=== PATIENT | female | born 1935 ===

== ENCOUNTER 2017-11-23 19:08 | Inpatient (IN) | payer MEDICARE, MEDICAID ==
[~2017-11-23 19:08] MED LIST: Dexamethasone 12 MG in Sodium Chloride 0.9% 50 ML IV ONE
--- NOTE | 2017-11-23 20:03 | ED PDOC ---
HPI: Trauma/Fall - HPI Time Seen by Provider: 11/23/17 19:19 Chief Complaint (Nursing): Trauma History Per: Patient History/Exam Limitations: no limitations Onset/Duration Of Symptoms: Mins Associated Symptoms: Dizziness Additional History Per: Patient, Family Additional Complaint(s): Hx of Lung CA (not on chemo/radiation currently), pre-DM, thyroid disease p/w dizziness and fall. Since Monday, family states she has been weak on her L side, having difficulty walking, controlling her balance, and losing coordination. Daughter states she was also recently diagnosed with UTI. Lung CA is S4. Pt. states she hit the front and the back of her head as well as her R rib cage/RUQ. States she also has "coccyx" pain, but that is an old injury, as per pt. Denies LOC, vomiting. Pt. only states she can take APAP for pain, no opiates. - Fall Fall:Prior To Injury: Tripped, Lost Balance. denies: Passed Out NIHSS Stroke Scale - Date/Time Evaluation Performed When Was NIHSS Performed: Baseline - How Severe is the Stroke Level of Consciousness: 0=Alert LOC to Questions: 0=Both comments correct LOC to commands: 0=Obeys both correctly Best Gaze: 0=Normal Visual: 0=No visual loss Facial: 0=Normal Motor Arm - Left: 0=No drift Motor Arm - Right: 0=No drift Motor Leg - Left: 4=No movement Motor Leg - Right: 3=No effort against gravity (falls immediately) Limb Ataxia: 0=Absent Sensory: 0=Normal Best Language: 0=No aphasia Dysarthia: 0=Normal articulation Extinction & Inattention (Neglect): 0=Normal, no object Score: 7 Past Medical History Reviewed: Historical Data, Nursing Documentation, Vital Signs Vital Signs: Last Vital Signs Temp 97.2 F L 11/23/17 19:13 Pulse 97 H 11/23/17 19:13 Resp 16 11/23/17 19:13 BP 149/73 11/23/17 19:13 Pulse Ox 94 L 11/23/17 19:13 - Medical History PMH: Diabetes, Hypothyroidism, Malignancy - Surgical History Surgical History: Cholecystectomy - Family History Family History: States: Unknown Family Hx - Living Arrangements Living Arrangements: With Family - Social History Current smoker - smoking cessation education provided: No - Home Medications Home Medications: Ambulatory Orders Medication Instructions Recorded Levothyroxine [Synthroid] 125 mcg PO DAILY 11/23/17 - Allergies Allergies/Adverse Reactions: Allergies Allergy/AdvReac Type Severity Reaction Status Date / Time atropine [From Lomotil] Allergy SHORTNESS Verified 11/23/17 19:34 OF BREATH belladonna alkaloids Allergy URTICARIA Verified 11/23/17 19:34 cefadroxil [From Duricef] Allergy SHORTNESS Verified 11/23/17 19:34 OF BREATH diphenoxylate [From Lomotil] Allergy SHORTNESS Verified 11/23/17 19:34 OF BREATH erythromycin base Allergy DIARRHEA Verified 11/23/17 19:34 [From Erythrocin] hyoscyamine [From ] Allergy SHORTNESS Verified 11/23/17 19:34 OF BREATH iodine Allergy RASH Verified 11/23/17 19:34 Opioids - Morphine Analogues Allergy SHORTNESS Verified 11/23/17 19:45 OF BREATH Penicillins Allergy SHORTNESS Verified 11/23/17 19:34 OF BREATH phenobarbital [From ] Allergy SHORTNESS Verified 11/23/17 19:34 OF BREATH scopolamine [From ] Allergy SHORTNESS Verified 11/23/17 19:34 OF BREATH tetracycline Allergy DIARRHEA Verified 11/23/17 19:34 Review of Systems ROS Statement: Except As Marked, All Systems Reviewed And Found Negative Gastrointestinal: Positive for: Abdominal Pain Neurological: Positive for: Weakness, Incoordination, Headache, Dizziness. Negative for: Confusion, Seizures Physical Exam - Reviewed Nursing Documentation Reviewed: Yes Vital Signs Reviewed: Yes - Physical Exam Appears: Positive for: Well, Non-toxic, No Acute Distress Head Exam: Positive for: NORMOCEPHALIC. Negative for: ATRAUMATIC (small hematoma to forehead) Skin: Positive for: Normal Color, Warm, DRY Eye Exam: Positive for: EOMI, Normal appearance, PERRL ENT: Positive for: Normal ENT Inspection Neck: Positive for: Normal, Painless ROM Cardiovascular/Chest: Positive for: Regular Rate, Rhythm Respiratory: Positive for: CNT, Normal Breath Sounds Gastrointestinal/Abdominal: Positive for: Bowel Sounds, Soft, Tenderness (mild RUQ tenderness). Negative for: Organomegaly, Mass, Distended, Guarding, Rebound , Asicites Back: Positive for: Muscle Spasm (lumbar/sacral TTP of mildline vertebral bodies , no stepoff) Rectal: Positive for: Deferred Extremity: Positive for: Pedal Edema (2+ swelling of bilateral LE w/ pitting edema w/ slight erythema). Negative for: Calf Tenderness, Deformity Neurologic/Psych: Positive for: Alert, box truck washer II-XII, Oriented. Negative for: Motor/Sensory Deficits (global weakness, R>L, cannot lift R leg off bed, able to lift L leg off bed slightly. RUE and LUE strength 5/5.), Cerebellar Tests, Aphasia, Facial Droop - Laboratory Results Result Diagrams: 11/23/17 22:10 11/23/17 22:10 - ECG O2 Sat by Pulse Oximetry: 94 Medical Decision Making Medical Decision Making: A/P: Hx of lung CA, thyroid disease, DM p/w dizziness and fall -mechanical v. pre-sycnopal event v. mets to brain v. UTI v. electrolyte disorder -will check labs, CTs, xray -APAP for pain (pt. refusing opiates) CT Brain:FINDINGS: Brain: There is prominence of sulci gyri and ventricles. There is no midline shift. There is a heterogeneous right posterior parietal/occipital mass with hemorrhage. There is surrounding vasogenic edema. Lesion measures approximately 4 x 3.2 x 4.2 cm. There is mass effect on the posterior horn of the right lateral ventricle with effacement. Edema effaces the adjacent sulci and gyri. There is a calcified left frontal extra-axial mass, possible meningioma. Jama- white differentiation is visualized. Ventricles: See above Bones: Cranial vault is intact. Soft tissues: unremarkable Sinuses: There is mucoperiosteal thickening greatest in the left maxillary sinus. Mastoid air cells: Ears and mastoids: Middle ears and mastoids are unremarkable. [facility] | Final Radiology Report CONFIDENTIALITY STATEMENT This report is intended only for use by the referring physician, and only in accordance with law. If you received this in error, call [phone]. Page 2 of 2 Orbits: There are no acute orbital abnormalities. IMPRESSION: Hemorrhagic posterior right parietal/occipital mass and surrounding vasogenic edema consistent with neoplasm; probable small incidental meningioma CT Abd/Pelv/Chest FINDINGS: Limitation: Lack of intravenous contrast limits evaluation of the chest Lungs and pleural spaces: Trachea and main bronchi are patent. There is encasement of right middle and lower lobe bronchi. There is mild narrowing of the right lower lobe bronchus. There is masslike pleural thickening in the posterior right upper hemithorax extending from the apex to the lower hemithorax. There is a smaller anterior pleural-based mass. There is a moderately large partially loculated right pleural effusion. There is a large subpulmonic component to the effusion. There is right upper lobe volume loss. There is partial right middle lobe atelectasis. There is compressive atelectasis with partial consolidation of the right lower lobe. There is prominence of interstitial markings in the left lung. There is no focal consolidation on the left. There is minimal atelectasis/scarring at the left base. There is no left effusion. Heart and vasculature: Heart size is normal. There is no pericardial effusion. There are coronary artery calcifications. There are calcifications in the aortic wall. Aorta and main pulmonary artery are normal in caliber. Thyroid: Thyroid is not optimally demonstrated. Bones/joints: There is a fracture of the right second rib which appears old. There is an ageindeterminate fracture of the posterior right seventh rib. No acute displaced fractures are seen on the [facility] | Final Radiology Report Page 2 of 3 left. There is exaggeration of the thoracic kyphosis. There are degenerative changes throughout the thoracic spine. Soft tissues: unremarkable Mediastinum: There is mediastinal and right hilar adenopathy. There is no definite left hilar adenopathy. Esophagus is unremarkable. Upper abdomen: Refer to following report for abdominal findings IMPRESSION: Large pleural-based mass extending from the right apex posteriorly almost to the lung base; right pleural effusion with large subpulmonic component; atelectatic changes in the right lung greatest in the right lower lobe; mediastinal and right hilar adenopathy not optimally evaluated; age indeterminate posterior right seventh rib fracture An acute nondisplaced rib fracture may be radiographically occult EXAM: CT Abdomen and Pelvis Without Intravenous Contrast EXAM DATE/TIME: 11/23/2017 9:01 PM CLINICAL HISTORY: 82 years old, female; Injury or trauma; Fall; Initial encounter; Blunt; Ruq; Blunt trauma (contusions or hematomas); Prior surgery; Surgery date: 6+ months; Surgery type: Cholecystectomy; Patient HX: HX. stage IV lung cancer. ; Additional info: S/P fall, ruq pain, lower back pain , HX of lung ca TECHNIQUE: Axial computed tomography images of the abdomen and pelvis without intravenous contrast. All CT scans at this facility use one or more dose reduction techniques, viz.: automated exposure control; ma/kV adjustment per patient size (including targeted exams where dose is matched to indication; i.e. head); or iterative reconstruction technique. Coronal and sagittal reformatted images were created and reviewed. COMPARISON: There are no prior studies for comparison. FINDINGS: Limitations: Lack of intravenous contrast limits evaluation of solid viscera Lower thorax: Refer to prior report for chest findings ABDOMEN: Liver: unremarkable Gallbladder and bile ducts: Gallbladder is nonvisualized.Common duct is unremarkable. Pancreas: Pancreas is mildly atrophic. Spleen: Spleen is unremarkable. There is an accessory spleen in the left upper quadrant. Adrenals: There is nodular thickening of the adrenals. [facility] | Final Radiology Report CONFIDENTIALITY STATEMENT This report is intended only for use by the referring physician, and only in accordance with law. If you received this in error, call [phone]. Page 3 of 3 Kidneys and ureters: unremarkable Stomach and bowel: Stomach is almost completely empty. Rotation is normal. Small bowel is mildly distended with air and fluid. There is no obstruction. Ileocecal region is unremarkable. Appendix and terminal ileum are unremarkable. There is moderate stool in the colon. There is sigmoid diverticulosis. The Appendix: See stomach and bowel PELVIS: Bladder: unremarkable Reproductive: Uterus and adnexal structures are unremarkable. ABDOMEN and PELVIS: Intraperitoneal space: There is no free air or free fluid. Bones/joints: Bony structures are osteopenic.There are degenerative changes in the osseus structures. There is sclerosis at the sacroiliac joints. Soft tissues: There is a very small fat containing umbilical hernia. Vasculature: There are vascular calcifications. Lymph nodes: There is no pathologic adenopathy. IMPRESSION: Limited evaluation of solid viscera due to lack of contrast, no acute solid visceral abnormality; prior cholecystectomy; possible constipation, diverticulosis without CT findings of diverticulitis CT Cervical Spine FINDINGS: Vertebrae: There is maintenance of the cervical lordosis. There is no prevertebral soft tissue swelling. Bony structures are diffusely osteopenic. There are no fractures. There is multilevel degenerative change. There is narrowing of predental space. There is narrowing of all disc spaces greatest C5/C6.Facet joints align anatomically. There is degenerative facet disease at all levels. There is minimal anterolisthesis seen 3 on C4. There are no fractures. Discs/spinal canal/neural foramina: See above. Soft tissues: See above. Thyroid: Thyroid is not optimally demonstrated. Lung apices: There is masslike pleural thickening at the right apex. There is adjacent compressive atelectasis. IMPRESSION: Osteopenia and degenerative change, no fracture Explained results to family and patient. Spoke with Dr. Parekh who recommends IV Decadron, IV mannitol, and head of the bed raised. Will place in ICU. Case discussed with hospitalist DR. Mukherjee and case accepted by Dr. Snyder. 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
[2017-11-23] MEDS ORDERED: Iohexol 300 100 ML IJ ONE (20:59)
[2017-11-23] MEDS ORDERED: Sodium Chloride 0.9% 0 ML IV ONE (20:59)
--- NOTE | 2017-11-23 22:00 | CT ---
EXAM: CT Head Without Intravenous Contrast EXAM DATE/TIME: 11/23/2017 7:41 PM CLINICAL HISTORY: 82 years old, female; Injury or trauma; Fall; Initial encounter; Concussion / head injury; Without loss of consciousness; Injury date: 11-23-2017; Injury details: Patient fell in bathroom, . weakness on left side; Patient HX: HX of lung ca. ; Additional info: S/P fall TECHNIQUE: Axial computed tomography images of the head/brain without intravenous contrast. All CT scans at this facility use one or more dose reduction techniques, viz.: automated exposure control; ma/kV adjustment per patient size (including targeted exams where dose is matched to indication; i.e. head); or iterative reconstruction technique. Coronal and sagittal reformatted images were created and reviewed. COMPARISON: There are no prior studies for comparison. FINDINGS: Brain: There is prominence of sulci gyri and ventricles. There is no midline shift. There is a heterogeneous right posterior parietal/occipital mass with hemorrhage. There is surrounding vasogenic edema. Lesion measures approximately 4 x 3.2 x 4.2 cm. There is mass effect on the posterior horn of the right lateral ventricle with effacement. Edema effaces the adjacent sulci and gyri. There is a calcified left frontal extra-axial mass, possible meningioma. Jama-white differentiation is visualized. Ventricles: See above Bones: Cranial vault is intact. Soft tissues: unremarkable Sinuses: There is mucoperiosteal thickening greatest in the left maxillary sinus. Mastoid air cells: Ears and mastoids: Middle ears and mastoids are unremarkable. Orbits: There are no acute orbital abnormalities. IMPRESSION: Hemorrhagic posterior right parietal/occipital mass and surrounding vasogenic edema consistent with neoplasm; probable small incidental meningioma
--- NOTE | 2017-11-23 22:05 | CT ---
EXAM: CT Cervical Spine Without Intravenous Contrast EXAM DATE/TIME: 11/23/2017 7:41 PM CLINICAL HISTORY: 82 years old, female; Injury or trauma; Fall; Initial encounter; Blunt trauma; Injury details: HX. Of stage IV lung cancer. ; Additional info: S/P fall TECHNIQUE: Axial computed tomography images of the cervical spine without intravenous contrast. All CT scans at this facility use one or more dose reduction techniques, viz.: automated exposure control; ma/kV adjustment per patient size (including targeted exams where dose is matched to indication; i.e. head); or iterative reconstruction technique. Coronal and sagittal reformatted images were created and reviewed. COMPARISON: There are no prior studies for comparison. FINDINGS: Vertebrae: There is maintenance of the cervical lordosis. There is no prevertebral soft tissue swelling. Bony structures are diffusely osteopenic. There are no fractures. There is multilevel degenerative change. There is narrowing of predental space. There is narrowing of all disc spaces greatest C5/C6.Facet joints align anatomically. There is degenerative facet disease at all levels. There is minimal anterolisthesis seen 3 on C4. There are no fractures. Discs/spinal canal/neural foramina: See above. Soft tissues: See above. Thyroid: Thyroid is not optimally demonstrated. Lung apices: There is masslike pleural thickening at the right apex. There is adjacent compressive atelectasis. IMPRESSION: Osteopenia and degenerative change, no fracture
[2017-11-23 22:15] LABS: BASO % 0.4 % (0.0-2.0); EOS # 0.1 K/uL (0.0-0.7); EOS % 2.5 % (0.0-4.0); HEMOGLOBIN 11.7 g/dL (12.0-16.0); LYMPH % 17.8 % (20.0-40.0); MEAN CELL VOLUME 93.5 fl (81.0-99.0); MEAN CORPUSCULAR HEMOGLOBIN 30.8 pg (27.0-31.0); MEAN CORPUSCULAR HGB CONC 32.9 g/dL (33.0-37.0); MEAN PLATELET VOLUME 9.2 fl (7.2-11.7); MONO # 0.6 K/uL (0.0-0.8); NEUT # 3.9 K/uL (1.8-7.0); NEUT % 68.3 % (50.0-75.0); NRBC % 0.1 % (0.0-0.0); RBC 3.79 Mil/uL (3.80-5.20); RED CELL DISTRIBUTION WIDTH 15.8 % (11.5-14.5); WHITE BLOOD COUNT 5.7 K/uL (4.8-10.8)
--- NOTE | 2017-11-23 22:26 | CT ---
EXAM: CT Chest Without Intravenous Contrast CLINICAL HISTORY: 82 years old, female; Injury or trauma; Fall; Initial encounter; Blunt; Ruq; Blunt trauma (contusions or hematomas); Prior surgery; Surgery date: 6+ months; Surgery type: Cholecystectomy; Patient HX: HX. stage IV lung cancer. ; Additional info: S/P fall, ruq pain, lower back pain, HX of lung ca TECHNIQUE: Axial computed tomography images of the chest without intravenous contrast. All CT scans at this facility use one or more dose reduction techniques, viz.: automated exposure control; ma/kV adjustment per patient size (including targeted exams where dose is matched to indication; i.e. head); or iterative reconstruction technique. Coronal and sagittal reformatted images were created and reviewed. COMPARISON: There are no prior studies for comparison. FINDINGS: Limitation: Lack of intravenous contrast limits evaluation of the chest Lungs and pleural spaces: Trachea and main bronchi are patent. There is encasement of right middle and lower lobe bronchi. There is mild narrowing of the right lower lobe bronchus. There is masslike pleural thickening in the posterior right upper hemithorax extending from the apex to the lower hemithorax. There is a smaller anterior pleural-based mass. There is a moderately large partially loculated right pleural effusion. There is a large subpulmonic component to the effusion. There is right upper lobe volume loss. There is partial right middle lobe atelectasis. There is compressive atelectasis with partial consolidation of the right lower lobe. There is prominence of interstitial markings in the left lung. There is no focal consolidation on the left. There is minimal atelectasis/scarring at the left base. There is no left effusion. Heart and vasculature: Heart size is normal. There is no pericardial effusion. There are coronary artery calcifications. There are calcifications in the aortic wall. Aorta and main pulmonary artery are normal in caliber. Thyroid: Thyroid is not optimally demonstrated. Bones/joints: There is a fracture of the right second rib which appears old. There is an age-indeterminate fracture of the posterior right seventh rib. No acute displaced fractures are seen on the left. There is exaggeration of the thoracic kyphosis. There are degenerative changes throughout the thoracic spine. Soft tissues: unremarkable Mediastinum: There is mediastinal and right hilar adenopathy. There is no definite left hilar adenopathy. Esophagus is unremarkable. Upper abdomen: Refer to following report for abdominal findings IMPRESSION: Large pleural-based mass extending from the right apex posteriorly almost to the lung base; right pleural effusion with large subpulmonic component; atelectatic changes in the right lung greatest in the right lower lobe; mediastinal and right hilar adenopathy not optimally evaluated; age indeterminate posterior right seventh rib fracture An acute nondisplaced rib fracture may be radiographically occult EXAM: CT Abdomen and Pelvis Without Intravenous Contrast EXAM DATE/TIME: 11/23/2017 9:01 PM CLINICAL HISTORY: 82 years old, female; Injury or trauma; Fall; Initial encounter; Blunt; Ruq; Blunt trauma (contusions or hematomas); Prior surgery; Surgery date: 6+ months; Surgery type: Cholecystectomy; Patient HX: HX. stage IV lung cancer. ; Additional info: S/P fall, ruq pain, lower back pain, HX of lung ca TECHNIQUE: Axial computed tomography images of the abdomen and pelvis without intravenous contrast. All CT scans at this facility use one or more dose reduction techniques, viz.: automated exposure control; ma/kV adjustment per patient size (including targeted exams where dose is matched to indication; i.e. head); or iterative reconstruction technique. Coronal and sagittal reformatted images were created and reviewed. COMPARISON: There are no prior studies for comparison. FINDINGS: Limitations: Lack of intravenous contrast limits evaluation of solid viscera Lower thorax: Refer to prior report for chest findings ABDOMEN: Liver: unremarkable Gallbladder and bile ducts: Gallbladder is nonvisualized.Common duct is unremarkable. Pancreas: Pancreas is mildly atrophic. Spleen: Spleen is unremarkable. There is an accessory spleen in the left upper quadrant. Adrenals: There is nodular thickening of the adrenals. Kidneys and ureters: unremarkable Stomach and bowel: Stomach is almost completely empty. Rotation is normal. Small bowel is mildly distended with air and fluid. There is no obstruction. Ileocecal region is unremarkable. Appendix and terminal ileum are unremarkable. There is moderate stool in the colon. There is sigmoid diverticulosis. The Appendix: See stomach and bowel PELVIS: Bladder: unremarkable Reproductive: Uterus and adnexal structures are unremarkable. ABDOMEN and PELVIS: Intraperitoneal space: There is no free air or free fluid. Bones/joints: Bony structures are osteopenic.There are degenerative changes in the osseus structures. There is sclerosis at the sacroiliac joints. Soft tissues: There is a very small fat containing umbilical hernia. Vasculature: There are vascular calcifications. Lymph nodes: There is no pathologic adenopathy. IMPRESSION: Limited evaluation of solid viscera due to lack of contrast, no acute solid visceral abnormality; prior cholecystectomy; possible constipation, diverticulosis without CT findings of diverticulitis Additional findings as described above.
[2017-11-23 22:41] LABS: BLOOD UREA NITROGEN 12 mg/dl (7-17); GFR AFRICAN-AMERICAN > 60; GFR NON-AFRICAN AMERICAN > 60
[2017-11-23 22:42] LABS: B-TYPE NATRIURETIC PEPTIDE 281 pg/ml (0-900); CALCIUM 9.8 mg/dL (8.4-10.2)
[2017-11-23] MEDS ORDERED: Mannitol 12.5 gm/50 ml Inj IV ONE (23:15)
--- NOTE | 2017-11-23 23:17 | CP.PCM.CON ---
History of Present Illness - History of Present Illness History of Present Illness: Attending: Pedro Snyder MD PCP: Dedrick Gillis MD Reason for Consult: Critical care management: Chief Complaint: Fall/Head trauma HPI: The hx is obtained from the family and after review of the medical records as the patient is very lethargic. She is an 82 years old female with hx of Diabetes, Hypothyroidism and Stage IV lung cancer who has been with unsteady gait at her home, worse since 5 days ago. She was brought to the ED because she fell in the Bathroom hitting the front and back of her head as well as right rib cage. No LOC of consciousness as per family. No external bleeding from the head. She complained of dizziness and headache. No vomits. In the ED The NIHSS was 7 PMH: Hypothyroidism;Pre-diabetes; multiple falls;Stage IV lung cancer( Patient refused Chemo accepting only a Short course of Radiotherapy) PSH:: Cholecystectomy SH: No illegal Drug Use, No Smoking; No alcohol FH:No Known family hx Allergies: Atropin; Belladonna alkoloids, Cefadroxil, Diphenoxylate, Erythrosin , Donnatol, Iodine, PCN, Scopolamine; Tetracyclin Medication: Reviewed Review of Systems - Review of Systems Systems not reviewed;Unavailable: Altered Mental Status Review of Systems: Review of systems limited as patient is severely lethargic Past Patient History - Past Medical History & Family History Past Medical History?: Yes - Past Social History Smoking Status: Unknown If Ever Smoked Chewing Tobacco Use: No Cigar Use: No Alcohol: None Drugs: Denies, Inhalants Home Situation {Lives}: With Family - CARDIAC Hx Cardiac Disorders: No - PULMONARY Hx Respiratory Disorders: Yes Hx Lung Cancer: Yes (stage 4) - NEUROLOGICAL Hx Neurological Disorder: Yes Hx Dizziness: Yes - HEENT Hx HEENT Problems: No - RENAL Hx Chronic Kidney Disease: No - ENDOCRINE/METABOLIC Hx Endocrine Disorders: Yes (pre-diabetes) Hx Hypothyroidism: Yes - HEMATOLOGICAL/ONCOLOGICAL Hx Blood Disorders: No - INTEGUMENTARY Hx Dermatological Problems: No - MUSCULOSKELETAL/RHEUMATOLOGICAL Hx Musculoskeletal Disorders: Yes Hx Falls: Yes - GASTROINTESTINAL Hx Gastrointestinal Disorders: No - GENITOURINARY/GYNECOLOGICAL Hx Genitourinary Disorders: No - PSYCHIATRIC Hx Psychophysiologic Disorder: No Hx Substance Use: No - SURGICAL HISTORY Hx Cholecystectomy: Yes - ANESTHESIA Hx Anesthesia: Yes Hx Anesthesia Reactions: No Meds Allergies/Adverse Reactions: Allergies Allergy/AdvReac Type Severity Reaction Status Date / Time atropine [From Lomotil] Allergy SHORTNESS Verified 11/23/17 19:34 OF BREATH belladonna alkaloids Allergy URTICARIA Verified 11/23/17 19:34 cefadroxil [From Duricef] Allergy SHORTNESS Verified 11/23/17 19:34 OF BREATH diphenoxylate [From Lomotil] Allergy SHORTNESS Verified 11/23/17 19:34 OF BREATH erythromycin base Allergy DIARRHEA Verified 11/23/17 19:34 [From Erythrocin] hyoscyamine [From ] Allergy SHORTNESS Verified 11/23/17 19:34 OF BREATH iodine Allergy RASH Verified 11/23/17 19:34 Opioids - Morphine Analogues Allergy SHORTNESS Verified 11/23/17 19:45 OF BREATH Penicillins Allergy SHORTNESS Verified 11/23/17 19:34 OF BREATH phenobarbital [From ] Allergy SHORTNESS Verified 11/23/17 19:34 OF BREATH scopolamine [From ] Allergy SHORTNESS Verified 11/23/17 19:34 OF BREATH tetracycline Allergy DIARRHEA Verified 11/23/17 19:34 - Medications Medications: Current Medications Mannitol (Mannitol) 20 gm IV ONCE ONE Stop: 11/23/17 23:16 Physical Exam - Constitutional Appears: No Acute Distress - Head Exam Head Exam: ATRAUMATIC, NORMAL INSPECTION, NORMOCEPHALIC - Eye Exam Additional comments: Eyes closed, resisting attempt to open them. pupils 2mm reacting sluggish. Right pupil appear smaller - ENT Exam ENT Exam: Mucous Membranes Moist, Normal External Ear Exam - Neck Exam Neck exam: Positive for: Full Rom, Normal Inspection. Negative for: Lymphadenopathy, Tenderness - Respiratory Exam Respiratory Exam: absent: Rales, Rhonchi, Wheezes Additional comments: Decreased breath sounds globally - Cardiovascular Exam Cardiovascular Exam: REGULAR RHYTHM, RRR, +S1, +S2. absent: Gallop - GI/Abdominal Exam GI & Abdominal Exam: Normal Bowel Sounds, Soft. absent: Mass, Organomegaly - Rectal Exam Rectal Exam: Deferred - Extremities Exam Additional comments: bilateral leg edema Left> right 3+ and 2+ - Back Exam Back exam: NORMAL INSPECTION. absent: CVA tenderness (L), CVA tenderness (R) - Neurological Exam Additional comments: Patient very lethargic, resisting to opening eyes, at present non verbal , motor tone conserved, Motor strength 3/5 in both upper extremities, not following commands, not moving the lower extremities, Difficulty in observing for facial droop. - Psychiatric Exam Psychiatric exam: Flat Affect - Skin Skin Exam: Intact, Normal Color, Warm Results - Vital Signs Recent Vital Signs: Last Vital Signs Temp 97.2 F L 11/23/17 19:13 Pulse 97 H 11/23/17 19:13 Resp 16 11/23/17 19:13 BP 149/73 11/23/17 19:13 Pulse Ox 94 L 11/23/17 20:08 - Labs Result Diagrams: 11/24/17 04:50 11/24/17 04:50 Labs: Laboratory Results - last 24 hr 11/23/17 11/23/17 22:10 22:10 WBC 5.7 RBC 3.79 L Hgb 11.7 L Hct 35.5 MCV 93.5 MCH 30.8 MCHC 32.9 L RDW 15.8 H Plt Count 218 MPV 9.2 Neut % (Auto) 68.3 Lymph % (Auto) 17.8 L Pratt % (Auto) 11.0 H Eos % (Auto) 2.5 Baso % (Auto) 0.4 Neut # 3.9 Lymph # 1.0 Pratt # 0.6 Eos # 0.1 Baso # 0.0 Sodium 134 Potassium 4.1 Chloride 103 Carbon Dioxide 26 Anion Gap 9 L BUN 12 Creatinine 0.8 Est GFR ( Amer) > 60 Est GFR (Non-Af Amer) > 60 Random Glucose 163 H Calcium 9.8 Total Creatine Kinase 76 Troponin I < 0.0120 NT-Pro-B Natriuret Pep 281 - EKG Data EKG comments: Sinus Rhythm 84/min - Imaging and Cardiology CT scan - chest Status: Image reviewed by me Additional comment: EXAM: CT Chest Without Intravenous Contrast FINDINGS: Limitation: Lack of intravenous contrast limits evaluation of the chest Lungs and pleural spaces: Trachea and main bronchi are patent. There is encasement of right middle and lower lobe bronchi. There is mild narrowing of the right lower lobe bronchus. There is masslike pleural thickening in the posterior right upper hemithorax extending from the apex to the lower hemithorax. There is a smaller anterior pleural-based mass. There is a moderately large partially loculated right pleural effusion. There is a large subpulmonic component to the effusion. There is right upper lobe volume loss. There is partial right middle lobe atelectasis. There is compressive atelectasis with partial consolidation of the right lower lobe. There is prominence of interstitial markings in the left lung. There is no focal consolidation on the left. There is minimal atelectasis/scarring at the left base. There is no left effusion. Heart and vasculature: Heart size is normal. There is no pericardial effusion. There are coronary artery calcifications. There are calcifications in the aortic wall. Aorta and main pulmonary artery are normal in caliber. Thyroid: Thyroid is not optimally demonstrated. Bones/joints: There is a fracture of the right second rib which appears old. There is an ageindeterminate fracture of the posterior right seventh rib. No acute displaced fractures are seen on the left. There is exaggeration of the thoracic kyphosis. There are degenerative changes throughout the thoracic spine. Soft tissues: unremarkable Mediastinum: There is mediastinal and right hilar adenopathy. There is no definite left hilar adenopathy. Esophagus is unremarkable. Upper abdomen: Refer to following report for abdominal finding IMPRESSION: Large pleural-based mass extending from the right apex posteriorly almost to the lung base; right pleural effusion with large subpulmonic component; atelectatic changes in the right lung greatest in the right lower lobe; mediastinal and right hilar adenopathy not optimally evaluated; age indeterminate posterior right seventh rib fracture An acute nondisplaced rib fracture may be radiographically occult CT scan - abdomen Status: Image reviewed by me Additional comment: EXAM: CT Abdomen and Pelvis Without Intravenous Contrast EXAM DATE/TIME: 11/23/2017 9:01 PM FINDINGS: Limitations: Lack of intravenous contrast limits evaluation of solid viscera Lower thorax: Refer to prior report for chest findings ABDOMEN: Liver: unremarkable Gallbladder and bile ducts: Gallbladder is nonvisualized.Common duct is unremarkable. Pancreas: Pancreas is mildly atrophic. Spleen: Spleen is unremarkable. There is an accessory spleen in the left upper quadrant. Adrenals: There is nodular thickening of the adrenals. Kidneys and ureters: unremarkable Stomach and bowel: Stomach is almost completely empty. Rotation is normal. Small bowel is mildly distended with air and fluid. There is no obstruction. Ileocecal region is unremarkable. Appendix and terminal ileum are unremarkable. There is moderate stool in the colon. There is sigmoid diverticulosis. The Appendix: See stomach and bowel PELVIS: Bladder: unremarkable Reproductive: Uterus and adnexal structures are unremarkable. ABDOMEN and PELVIS: Intraperitoneal space: There is no free air or free fluid. Bones/joints: Bony structures are osteopenic.There are degenerative changes in the osseus structures. There is sclerosis at the sacroiliac joints. Soft tissues: There is a very small fat containing umbilical hernia. Vasculature: There are vascular calcifications. Lymph nodes: There is no pathologic adenopathy IMPRESSION: Limited evaluation of solid viscera due to lack of contrast, no acute solid visceral abnormality; prior cholecystectomy; possible constipation, diverticulosis without CT findings of diverticulitis CT Cervical Spine Status: Image reviewed by me Additional comment: EXAM: CT Cervical Spine Without Intravenous Contrast EXAM DATE/TIME: 11/23/2017 7:41 PM FINDINGS: Vertebrae: There is maintenance of the cervical lordosis. There is no prevertebral soft tissue swelling. Bony structures are diffusely osteopenic. There are no fractures. There is multilevel degenerative change. There is narrowing of predental space. There is narrowing of all disc spaces greatest C5/C6.Facet joints align anatomically. There is degenerative facet disease at all levels. There is minimal anterolisthesis seen 3 on C4. There are no fractures. Discs/spinal canal/neural foramina: See above. Soft tissues: See above. Thyroid: Thyroid is not optimally demonstrated. Lung apices: There is masslike pleural thickening at the right apex. There is adjacent compressive atelectasis. IMPRESSION: Osteopenia and degenerative change, no fracture CT scan - head Status: Image reviewed by me Additional comment: EXAM: CT Head Without Intravenous Contrast EXAM DATE/TIME: 11/23/2017 7:41 PM FINDINGS: Brain: There is prominence of sulci gyri and ventricles. There is no midline shift. There is a heterogeneous right posterior parietal/occipital mass with hemorrhage. There is surrounding vasogenic edema. Lesion measures approximately 4 x 3.2 x 4.2 cm. There is mass effect on the posterior horn of the right lateral ventricle with effacement. Edema effaces the adjacent sulci and gyri. There is a calcified left frontal extra-axial mass, possible meningioma. Jama- white differentiation is visualized. Ventricles: See above Bones: Cranial vault is intact. Soft tissues: unremarkable Sinuses: There is mucoperiosteal thickening greatest in the left maxillary sinus. Mastoid air cells: Ears and mastoids: Middle ears and mastoids are unremarkable. Orbits: There are no acute orbital abnormalities. IMPRESSION: Hemorrhagic posterior right parietal/occipital mass and surrounding vasogenic edema consistent with neoplasm; probable small incidental meningioma Chest x-ray Status: Image reviewed by me Additional comment: Opacity occupying the right lung and part of the left lung Assessment & Plan - Assessment and Plan (Free Text) Assessment: #. Hemorrhagic Brain Metastasis #. Stage IV Lung cancer #. Hypothyroidism #. Diabetic Mellitus Plan: 82 years old female with hx of Diabetes, Hypothyroidism and Stage IV lung cancer who has been with unsteady gait at her home, worse since 5 days ago. She was brought to the ED because she fell in the Bathroom hitting the front and back of her head as well as right rib cage. No LOC of consciousness as per family. No external bleeding from the head. She complained of dizziness and headache. No vomits. In the ED The NIHSS was 7 #. Hemorrhagic Brain Metastasis - Consult Neuro surgeon Dr Parekh - Consult Neurology Dr Bellamy - Neuro checks - NPO - Swallow Eval - Decadron - Mannitol - MRI of head #. Stage IV Lung cancer - No Chemo/ No Radiation - Conservative/Palliative management - Pain management #. Hypothyroidism - Synthroid #. Diabetic Mellitus - IV Fluid NS 75/hr - Regular Insulin sliding scale according to Accucheck - HbA1c #. Stress ulcer prophylaxis with Pantoprazole #. DVT prophylaxis with SCD #. Code Status: Full - Date & Time Date: 11/23/17 Time: 23:17
[2017-11-23 23:26] LABS: PARTIAL THROMBOPLASTIN TIME 30.2 Seconds (25.6-37.1); PROTHROMBIN TIME 11.4 Seconds (9.8-13.1)
[2017-11-23 23:46] LABS: SQUAMOUS EPITHIAL 2 /hpf (0-5); URINE BILIRUBIN NEGATIVE (NEGATIVE); URINE BLOOD NEGATIVE (NEGATIVE); URINE CLARITY SLIGHTY-CLOUDY (Clear); URINE COLOR YELLOW (YELLOW); URINE GLUCOSE (UA) NEG (Normal); URINE LEUKOCYTE ESTERASE SMALL Leu/uL (Negative); URINE NITRATE NEGATIVE (NEGATIVE); URINE PROTEIN NEGATIVE (NEGATIVE); URINE UROBILINOGEN 0.2-1.0 mg/dL (0.2-1.0)
[2017-11-24] MEDS: Sodium Chloride 0.9% 1,000 ML IV SCH ×2 (02:04→16:24)
[2017-11-24] MEDS ORDERED: Mannitol 12.5 gm/50 ml Inj IV SCH (04:00)
[2017-11-24] MEDS ORDERED: Dexamethasone 6 MG in Sodium Chloride 0.9% 50 ML IVPB SCH (04:00)
[2017-11-24 05:51] LABS: BASO % 0.7 % (0.0-2.0); EOS % 0.3 % (0.0-4.0); HEMOGLOBIN 11.3 g/dL (12.0-16.0); LYMPH # 0.4 K/uL (1.0-4.3); LYMPH % 9.7 % (20.0-40.0); MEAN CELL VOLUME 94.2 fl (81.0-99.0); MEAN CORPUSCULAR HEMOGLOBIN 31.1 pg (27.0-31.0); MEAN PLATELET VOLUME 8.9 fl (7.2-11.7); MONO # 0.1 K/uL (0.0-0.8); MONO % 2.8 % (0.0-10.0); NEUT # 3.9 K/uL (1.8-7.0); NEUT % 86.5 % (50.0-75.0); NRBC % 0.1 % (0.0-0.0); PLATELET COUNT 203 K/uL (130-400); RBC 3.63 Mil/uL (3.80-5.20); RED CELL DISTRIBUTION WIDTH 15.7 % (11.5-14.5); WHITE BLOOD COUNT 4.5 K/uL (4.8-10.8)
[2017-11-24 06:19] LABS: ALBUMIN 3.4 g/dL (3.5-5.0); ALT/SGPT 30 U/L (9-52); AST/SGOT 28 U/L (14-36); BLOOD UREA NITROGEN 10 mg/dl (7-17); CALCIUM 9.5 mg/dL (8.4-10.2); GFR AFRICAN-AMERICAN > 60; GFR NON-AFRICAN AMERICAN > 60
[2017-11-24 07:54] LABS: EOSINOPHIL 1 % (0-7); LYMPHOCYTE 10 % (20-50); NEUTROPHIL 85 % (42-75); TOTAL CELLS COUNTED 100
[2017-11-24 07:55] LABS: ANISOCYTOSIS SLIGHT; BASOPHIL 1 % (0-2); MONOCYTE 3 % (0-10); PLATELET ESTIMATE NORMAL (NORMAL)
--- NOTE | 2017-11-24 08:23 | CP.PCM.HP ---
<Paul Banerjee - Last Filed: 11/24/17 10:36> History of Present Illness - History of Present Illness History of Present Illness: 82 yo ,f, PMhx/o DM, Hypothyroidism, stage IV lung cancer is brought in to ED with family who report that they noticed since Monday ( 6 days ago) that she has been with gait imbalance, weak from left side, noticed when using her walker and yesterday patient fell in the Bathroom hitting the front and back of her head as well as right rib cage. She reports some dizziness before the event. She denies seizure activity, vomiting, blurry vision, confusion . Patient 's granddaughter does not remember her primary Dr and state that she had some short course of Radiotherapy and refused chemio. At this moment patient has been using only homeopathic treatment Patient seen and examined bedside in ICU with Dr Snyder and granddaughter present. Patient awake,alert, using O2 by NC. Reports some left leg weakness and tingling b/l hands. she denies headache, vomiting, blurry vision, chest pain. Patient's granddaughter stated that patient has not living will and she lives with 2 sister, one of them is in denial for the condition. We had conversation about palliative care, hospice care and family will meet and speak each other to decide if hospice service evaluation will be accepted or not. They will let us know PSH:: Cholecystectomy SH: No illegal Drug Use, No Smoking; No alcohol FH:No Known family hx Allergies: Atropin; Belladonna alkoloids, Cefadroxil, Diphenoxylate, Erythrosin , Donnatol, Iodine, PCN, Scopolamine; Tetracyclin Medication: Reviewed Present on Admission - Present on Admission Any Indicators Present on Admission: No History of DVT/PE: No History of Uncontrolled Diabetes: No Urinary Catheter: No Decubitus Ulcer Present: No Review of Systems - Constitutional Constitutional: As Per HPI - Cardiovascular Cardiovascular: As Per HPI - Respiratory Respiratory: As Per HPI - Gastrointestinal Gastrointestinal: As Per HPI - Neurological Neurological: Weakness Past Patient History - Past Medical History & Family History Past Medical History?: Yes - Past Social History Smoking Status: Unknown If Ever Smoked Chewing Tobacco Use: No Cigar Use: No Alcohol: None Drugs: Denies, Inhalants Home Situation {Lives}: With Family - CARDIAC Hx Cardiac Disorders: No - PULMONARY Hx Respiratory Disorders: Yes Hx Lung Cancer: Yes (stage 4) - NEUROLOGICAL Hx Neurological Disorder: Yes Hx Dizziness: Yes - HEENT Hx HEENT Problems: No - RENAL Hx Chronic Kidney Disease: No - ENDOCRINE/METABOLIC Hx Endocrine Disorders: Yes (pre-diabetes) Hx Hypothyroidism: Yes - HEMATOLOGICAL/ONCOLOGICAL Hx Blood Disorders: No - INTEGUMENTARY Hx Dermatological Problems: No - MUSCULOSKELETAL/RHEUMATOLOGICAL Hx Musculoskeletal Disorders: Yes Hx Falls: Yes - GASTROINTESTINAL Hx Gastrointestinal Disorders: No - GENITOURINARY/GYNECOLOGICAL Hx Genitourinary Disorders: No - PSYCHIATRIC Hx Psychophysiologic Disorder: No Hx Substance Use: No - SURGICAL HISTORY Hx Cholecystectomy: Yes - ANESTHESIA Hx Anesthesia: Yes Hx Anesthesia Reactions: No Meds Allergies/Adverse Reactions: Allergies Allergy/AdvReac Type Severity Reaction Status Date / Time atropine [From Lomotil] Allergy SHORTNESS Verified 11/23/17 19:34 OF BREATH belladonna alkaloids Allergy URTICARIA Verified 11/23/17 19:34 cefadroxil [From Duricef] Allergy SHORTNESS Verified 11/23/17 19:34 OF BREATH diphenoxylate [From Lomotil] Allergy SHORTNESS Verified 11/23/17 19:34 OF BREATH erythromycin base Allergy DIARRHEA Verified 11/23/17 19:34 [From Erythrocin] hyoscyamine [From ] Allergy SHORTNESS Verified 11/23/17 19:34 OF BREATH iodine Allergy RASH Verified 11/23/17 19:34 Opioids - Morphine Analogues Allergy SHORTNESS Verified 11/23/17 19:45 OF BREATH Penicillins Allergy SHORTNESS Verified 11/23/17 19:34 OF BREATH phenobarbital [From ] Allergy SHORTNESS Verified 11/23/17 19:34 OF BREATH scopolamine [From ] Allergy SHORTNESS Verified 11/23/17 19:34 OF BREATH tetracycline Allergy DIARRHEA Verified 11/23/17 19:34 Physical Exam - Constitutional Appears: No Acute Distress - Head Exam Head Exam: NORMOCEPHALIC - Eye Exam Eye Exam: Normal appearance - ENT Exam ENT Exam: Mucous Membranes Moist - Neck Exam Neck exam: Positive for: Normal Inspection - Respiratory Exam Respiratory Exam: Decreased Breath Sounds. absent: Rhonchi, Wheezes Additional comments: right lung field - Cardiovascular Exam Cardiovascular Exam: REGULAR RHYTHM, +S1, +S2 - GI/Abdominal Exam GI & Abdominal Exam: Normal Bowel Sounds, Soft. absent: Tenderness - Extremities Exam Extremities exam: Positive for: pedal edema (B/L 1+ distal 1/3 ) - Neurological Exam Neurological exam: Alert - Expanded Neurological Exam Expanded Speech: Fluid Speech Cranial nerves: EOM's Intact: Normal, Tongue Deviation: Normal Neuro motor strength exam: Left Upper Extremity: 3, Right Upper Extremity: 3, Left Lower Extremity: 3, Right Lower Extremity: 4 Coma Scale Eye Opening: SPONTANEOUS Coma Scale Motor Response: OBEYS COMMANDS Coma Scale Verbal: Oriented Coma Scale Total: 15 - Psychiatric Exam Psychiatric exam: Normal Affect, Normal Mood - Skin Skin Exam: Pallor Results - Vital Signs Recent Vital Signs: Last Vital Signs Temp 98.1 F 11/24/17 04:00 Pulse 79 11/24/17 05:00 Resp 24 11/24/17 05:00 BP 142/78 11/24/17 05:00 Pulse Ox 98 11/24/17 05:00 - Labs Result Diagrams: 11/24/17 04:50 11/24/17 04:50 Labs: Laboratory Results - last 24 hr 11/23/17 11/23/17 11/23/17 22:00 22:10 22:10 WBC 5.7 RBC 3.79 L Hgb 11.7 L Hct 35.5 MCV 93.5 MCH 30.8 MCHC 32.9 L RDW 15.8 H Plt Count 218 MPV 9.2 Neut % (Auto) 68.3 Lymph % (Auto) 17.8 L Gaines % (Auto) 11.0 H Eos % (Auto) 2.5 Baso % (Auto) 0.4 Neut # 3.9 Lymph # 1.0 Gaines # 0.6 Eos # 0.1 Baso # 0.0 Neutrophils % (Manual) Lymphocytes % (Manual) Monocytes % (Manual) Eosinophils % (Manual) Basophils % (Manual) Platelet Estimate Anisocytosis (manual) PT INR APTT Sodium 134 Potassium 4.1 Chloride 103 Carbon Dioxide 26 Anion Gap 9 L BUN 12 Creatinine 0.8 Est GFR ( Amer) > 60 Est GFR (Non-Af Amer) > 60 POC Glucose (mg/dL) Random Glucose 163 H Calcium 9.8 Total Bilirubin AST ALT Alkaline Phosphatase Total Creatine Kinase 76 Troponin I < 0.0120 NT-Pro-B Natriuret Pep 281 Total Protein Albumin Globulin Albumin/Globulin Ratio Urine Color Yellow Urine Clarity Slighty-cloudy Urine pH 7.0 Ur Specific Brohard 1.008 Urine Protein Negative Urine Glucose (UA) Neg Urine Ketones Negative Urine Blood Negative Urine Nitrate Negative Urine Bilirubin Negative Urine Urobilinogen 0.2-1.0 Ur Leukocyte Esterase Small Urine RBC (Auto) 1 Urine Microscopic WBC 8 H Ur Squamous Epith Cells 2 Hyaline Casts 3-5 H 11/23/17 11/24/17 11/24/17 23:10 02:12 04:50 WBC 4.5 L RBC 3.63 L Hgb 11.3 L Hct 34.2 MCV 94.2 MCH 31.1 H MCHC 33.0 RDW 15.7 H Plt Count 203 MPV 8.9 Neut % (Auto) 86.5 H Lymph % (Auto) 9.7 L Gaines % (Auto) 2.8 Eos % (Auto) 0.3 Baso % (Auto) 0.7 Neut # 3.9 Lymph # 0.4 L Gaines # 0.1 Eos # 0.0 Baso # 0.0 Neutrophils % (Manual) 85 H Lymphocytes % (Manual) 10 L Monocytes % (Manual) 3 Eosinophils % (Manual) 1 Basophils % (Manual) 1 Platelet Estimate Normal Anisocytosis (manual) Slight PT 11.4 INR 1.0 APTT 30.2 Sodium Potassium Chloride Carbon Dioxide Anion Gap BUN Creatinine Est GFR ( Amer) Est GFR (Non-Af Amer) POC Glucose (mg/dL) 156 H Random Glucose Calcium Total Bilirubin AST ALT Alkaline Phosphatase Total Creatine Kinase Troponin I NT-Pro-B Natriuret Pep Total Protein Albumin Globulin Albumin/Globulin Ratio Urine Color Urine Clarity Urine pH Ur Specific Brohard Urine Protein Urine Glucose (UA) Urine Ketones Urine Blood Urine Nitrate Urine Bilirubin Urine Urobilinogen Ur Leukocyte Esterase Urine RBC (Auto) Urine Microscopic WBC Ur Squamous Epith Cells Hyaline Casts 11/24/17 11/24/17 04:50 05:52 WBC RBC Hgb Hct MCV MCH MCHC RDW Plt Count MPV Neut % (Auto) Lymph % (Auto) Gaines % (Auto) Eos % (Auto) Baso % (Auto) Neut # Lymph # Gaines # Eos # Baso # Neutrophils % (Manual) Lymphocytes % (Manual) Monocytes % (Manual) Eosinophils % (Manual) Basophils % (Manual) Platelet Estimate Anisocytosis (manual) PT INR APTT Sodium 134 Potassium 4.2 Chloride 103 Carbon Dioxide 27 Anion Gap 8 L BUN 10 Creatinine 0.8 Est GFR ( Amer) > 60 Est GFR (Non-Af Amer) > 60 POC Glucose (mg/dL) 200 H Random Glucose 212 H Calcium 9.5 Total Bilirubin 0.5 AST 28 ALT 30 Alkaline Phosphatase 98 Total Creatine Kinase Troponin I NT-Pro-B Natriuret Pep Total Protein 6.9 Albumin 3.4 L Globulin 3.5 Albumin/Globulin Ratio 1.0 Urine Color Urine Clarity Urine pH Ur Specific Brohard Urine Protein Urine Glucose (UA) Urine Ketones Urine Blood Urine Nitrate Urine Bilirubin Urine Urobilinogen Ur Leukocyte Esterase Urine RBC (Auto) Urine Microscopic WBC Ur Squamous Epith Cells Hyaline Casts Assessment & Plan - Assessment and Plan (Free Text) Plan: 1) Hemorrhagic Brain Metastasis -CT Head: Hemorrhagic posterior right parietal/occipital mass and surrounding vasogenic edemaconsistent with neoplasm; probable small incidental meningioma -Admit ICU -Decadron -Manitol -MRI head - Consult Neuro surgeon suggested - Consult Neurology suggested - Neuro checks - NPO - Swallow Eval 2) Stage IV Lung cancer -CT Chest:Large pleural-based mass extending from the right apex posteriorly almost to the lung base; right pleural effusion with large subpulmonic component ; atelectatic changes in the right lung greatest in the right lower lobe; mediastinal and right hilar adenopathy not optimally evaluated; age indeterminate posterior right seventh rib fracture - Pulmonology consult suggested - Conservative/Palliative management - Pain management 3) Hypothyroidism - Synthroid 4) Diabetic Mellitus - IV Fluid NS 75/hr - SSI - HbA1c 5) DVT Prophylaxis -SCD 6) Stress ulcer prophylaxis - Pantoprazole <Pedro Snyder K - Last Filed: 12/05/17 12:18> Results - Vital Signs Recent Vital Signs: Last Vital Signs Temp 97.4 F L 12/05/17 08:17 Pulse 91 H 12/05/17 08:17 Resp 20 12/05/17 08:17 BP 163/91 H 12/05/17 08:17 Pulse Ox 98 12/05/17 08:17 - Labs Result Diagrams: 12/04/17 08:24 12/04/17 08:24 Labs: Laboratory Results - last 24 hr 11/27/17 12/04/17 12/04/17 04:30 15:50 21:12 POC Glucose (mg/dL) 193 H 179 H Hemoglobin A1c 7.1 H 12/05/17 12/05/17 05:02 10:56 POC Glucose (mg/dL) 227 H 226 H Hemoglobin A1c Assessment & Plan - Assessment and Plan (Free Text) Assessment: Patient was personally seen and examined by me in rounds with residents. Available labs and diagnostic data reviewed. Case, Patient's condition and management plan discussed with residents in rounds. Agree with resident's progress note. Plan: As ordered.
[2017-11-24] MEDS ORDERED: Levothyroxine 200 mcg (0.2 mg) Inj IVP SCH (09:00)
--- NOTE | 2017-11-24 09:24 | RAD ---
PROCEDURE: CHEST RADIOGRAPH, 1 VIEW HISTORY: s/p fall COMPARISON: Chest CT without contrast 11/15/2017, subsequent to chest radiograph. FINDINGS: LUNGS: An apparent partially loculated right pleural effusion is appreciate with underlying airspace disease not excluded in the periphery. Limited linear atelectasis or fibrosis seen at the mid left lung zone laterally. No left pleural effusion. No pneumothorax bilaterally. Cardiac size appears prominent. No definite pulmonary vascular derangement. Patient slightly rotated toward the left. OSSEOUS STRUCTURES: No significant abnormalities. VISUALIZED UPPER ABDOMEN: Normal. OTHER FINDINGS: None. IMPRESSION: Apparent at least partially loculated right pleural effusion with none seen on the left. Underlying atelectasis or infiltrates not excluded the periphery of the right lung including the base. Limited linear atelectasis or fibrosis in the left mid lung zone laterally. Borderline cardiomegaly.
--- NOTE | 2017-11-24 09:26 | RAD ---
PROCEDURE: Radiographs of the pelvis. HISTORY: s/p fall COMPARISON: None. FINDINGS: BONES: Pelvic ring appears intact including the pubic symphysis. No displaced fracture is identified and there is no destructive bony lesion identified. The sacral arcades appear unremarkable diffusely. JOINTS: Degenerative change identified in the bilateral sacroiliac and hip joints which appears symmetric. No prominent subluxation or dislocation appreciable at the bilateral hip joints. OTHER FINDINGS: Vascular calcification) the pelvic soft tissues bilaterally. IMPRESSION: No acute fracture or dislocation with degenerative changes as discussed above.
--- NOTE | 2017-11-24 09:35 | RAD ---
PROCEDURE: Radiographs of the left elbow. HISTORY: r/o fracture, s/p fall COMPARISON: No prior. FINDINGS: BONES: No acute fracture or destructive bony lesion identified. JOINTS: Normal. No osteoarthritis. SOFT TISSUES: Normal. JOINT EFFUSION: None. OTHER FINDINGS: None IMPRESSION: Unremarkable radiographs of the left elbow.
--- NOTE | 2017-11-24 09:40 | CARD ---
APPROVED REPORT EKG Measurement Heart [id number] <Conclusion> Accelerated Junctional rhythm Abnormal ECG
[2017-11-24] MEDS ORDERED: MANNITOL 25% IV SCH (11:45)
[2017-11-24] MEDS: Piperacillin/Tazobact 3.375 GM in Sodium Chloride 0.9% 100 ML IVPB SCH ×2 (12:17→16:23)
[2017-11-24] MEDS ORDERED: Dexamethasone 4 MG in Dextrose 5% In Water 50 ML IV SCH (12:30)
--- NOTE | 2017-11-24 12:31 | CP.PCM.CON ---
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 d/w pt and family at length await decision Past Patient History - Past Medical History & Family History Past Medical History?: Yes - Past Social History Smoking Status: Unknown If Ever Smoked Chewing Tobacco Use: No Cigar Use: No Alcohol: None Drugs: Denies, Inhalants Home Situation {Lives}: With Family - CARDIAC Hx Cardiac Disorders: No - PULMONARY Hx Respiratory Disorders: Yes Hx Lung Cancer: Yes (stage 4) - NEUROLOGICAL Hx Neurological Disorder: Yes Hx Dizziness: Yes - HEENT Hx HEENT Problems: No - RENAL Hx Chronic Kidney Disease: No - ENDOCRINE/METABOLIC Hx Endocrine Disorders: Yes (pre-diabetes) Hx Hypothyroidism: Yes - HEMATOLOGICAL/ONCOLOGICAL Hx Blood Disorders: No - INTEGUMENTARY Hx Dermatological Problems: No - MUSCULOSKELETAL/RHEUMATOLOGICAL Hx Musculoskeletal Disorders: Yes Hx Falls: Yes - GASTROINTESTINAL Hx Gastrointestinal Disorders: No - GENITOURINARY/GYNECOLOGICAL Hx Genitourinary Disorders: No - PSYCHIATRIC Hx Psychophysiologic Disorder: No Hx Substance Use: No - SURGICAL HISTORY Hx Cholecystectomy: Yes - ANESTHESIA Hx Anesthesia: Yes Hx Anesthesia Reactions: No Meds Allergies/Adverse Reactions: Allergies Allergy/AdvReac Type Severity Reaction Status Date / Time atropine [From Lomotil] Allergy SHORTNESS Verified 11/23/17 19:34 OF BREATH belladonna alkaloids Allergy URTICARIA Verified 11/23/17 19:34 cefadroxil [From Duricef] Allergy SHORTNESS Verified 11/23/17 19:34 OF BREATH diphenoxylate [From Lomotil] Allergy SHORTNESS Verified 11/23/17 19:34 OF BREATH erythromycin base Allergy DIARRHEA Verified 11/23/17 19:34 [From Erythrocin] hyoscyamine [From ] Allergy SHORTNESS Verified 11/23/17 19:34 OF BREATH iodine Allergy RASH Verified 11/23/17 19:34 Opioids - Morphine Analogues Allergy SHORTNESS Verified 11/23/17 19:45 OF BREATH Penicillins Allergy SHORTNESS Verified 11/23/17 19:34 OF BREATH phenobarbital [From ] Allergy SHORTNESS Verified 11/23/17 19:34 OF BREATH scopolamine [From ] Allergy SHORTNESS Verified 11/23/17 19:34 OF BREATH tetracycline Allergy DIARRHEA Verified 11/23/17 19:34 - Medications Medications: Current Medications Dexamethasone (Decadron Inj) 4 mg IV Q6 PENDING SALE TO [facility] Sodium Chloride (Sodium Chloride 0.9%) 1,000 mls @ 75 mls/hr IV .[id number] PENDING SALE TO [facility] Stop: 11/25/17 00:41 Last Admin: 11/24/17 02:04 Dose: 75 mls/hr Piperacillin Sod/Tazobactam (Sod 3.375 gm/ Sodium Chloride) 100 mls @ 100 mls/ hr IVPB Q6 MARY ANN PRN Reason: Protocol Last Admin: 11/24/17 12:17 Dose: 100 mls/hr Vancomycin HCl 750 mg/ Sodium (Chloride) 250 mls @ 166.667 mls/hr IVPB Q12H MARY ANN PRN Reason: Protocol Last Admin: 11/24/17 11:48 Dose: 166.667 mls/hr Mannitol (Mannitol) 80 mls @ 80 mls/hr IV Q6H PENDING SALE TO [facility] Last Admin: 11/24/17 11:55 Dose: 80 mls/hr Levothyroxine Sodium (Synthroid) 60 mcg IVP DAILY PENDING SALE TO [facility] Pantoprazole Sodium (Protonix Inj) 40 mg IVP DAILY PENDING SALE TO [facility] Last Admin: 11/24/17 10:56 Dose: 40 mg Phytonadione (Vitamin K Tab) 10 mg PO ONCE ONE Stop: 11/24/17 12:46 Results - Vital Signs Recent Vital Signs: Last Vital Signs Temp 98.4 F 11/24/17 08:00 Pulse 86 11/24/17 10:00 Resp 17 11/24/17 10:00 BP 140/77 11/24/17 10:00 Pulse Ox 98 11/24/17 10:00 - Labs Result Diagrams: 11/24/17 04:50 11/24/17 04:50 Labs: Laboratory Results - last 24 hr 11/23/17 11/23/17 11/23/17 22:00 22:10 22:10 WBC 5.7 RBC 3.79 L Hgb 11.7 L Hct 35.5 MCV 93.5 MCH 30.8 MCHC 32.9 L RDW 15.8 H Plt Count 218 MPV 9.2 Neut % (Auto) 68.3 Lymph % (Auto) 17.8 L [place] % (Auto) 11.0 H Eos % (Auto) 2.5 Baso % (Auto) 0.4 Neut # 3.9 Lymph # 1.0 [place] # 0.6 Eos # 0.1 Baso # 0.0 Neutrophils % (Manual) Lymphocytes % (Manual) Monocytes % (Manual) Eosinophils % (Manual) Basophils % (Manual) Platelet Estimate Anisocytosis (manual) PT INR APTT Sodium 134 Potassium 4.1 Chloride 103 Carbon Dioxide 26 Anion Gap 9 L BUN 12 Creatinine 0.8 Est GFR ( Amer) > 60 Est GFR (Non-Af Amer) > 60 POC Glucose (mg/dL) Random Glucose 163 H Calcium 9.8 Total Bilirubin AST ALT Alkaline Phosphatase Total Creatine Kinase 76 Troponin I < 0.0120 NT-Pro-B Natriuret Pep 281 Total Protein Albumin Globulin Albumin/Globulin Ratio TSH 3rd Generation Urine Color Yellow Urine Clarity Slighty-cloudy Urine pH 7.0 Ur Specific [place] 1.008 Urine Protein Negative Urine Glucose (UA) Neg Urine Ketones Negative Urine Blood Negative Urine Nitrate Negative Urine Bilirubin Negative Urine Urobilinogen 0.2-1.0 Ur Leukocyte Esterase Small Urine RBC (Auto) 1 Urine Microscopic WBC 8 H Ur Squamous Epith Cells 2 Hyaline Casts 3-5 H 11/23/17 11/24/17 11/24/17 23:10 02:12 04:50 WBC 4.5 L RBC 3.63 L Hgb 11.3 L Hct 34.2 MCV 94.2 MCH 31.1 H MCHC 33.0 RDW 15.7 H Plt Count 203 MPV 8.9 Neut % (Auto) 86.5 H Lymph % (Auto) 9.7 L [place] % (Auto) 2.8 Eos % (Auto) 0.3 Baso % (Auto) 0.7 Neut # 3.9 Lymph # 0.4 L [place] # 0.1 Eos # 0.0 Baso # 0.0 Neutrophils % (Manual) 85 H Lymphocytes % (Manual) 10 L Monocytes % (Manual) 3 Eosinophils % (Manual) 1 Basophils % (Manual) 1 Platelet Estimate Normal Anisocytosis (manual) Slight PT 11.4 INR 1.0 APTT 30.2 Sodium Potassium Chloride Carbon Dioxide Anion Gap BUN Creatinine Est GFR ( Amer) Est GFR (Non-Af Amer) POC Glucose (mg/dL) 156 H Random Glucose Calcium Total Bilirubin AST ALT Alkaline Phosphatase Total Creatine Kinase Troponin I NT-Pro-B Natriuret Pep Total Protein Albumin Globulin Albumin/Globulin Ratio TSH 3rd Generation Urine Color Urine Clarity Urine pH Ur Specific [place] Urine Protein Urine Glucose (UA) Urine Ketones Urine Blood Urine Nitrate Urine Bilirubin Urine Urobilinogen Ur Leukocyte Esterase Urine RBC (Auto) Urine Microscopic WBC Ur Squamous Epith Cells Hyaline Casts 11/24/17 11/24/17 11/24/17 04:50 05:52 10:04 WBC RBC Hgb Hct MCV MCH MCHC RDW Plt Count MPV Neut % (Auto) Lymph % (Auto) [place] % (Auto) Eos % (Auto) Baso % (Auto) Neut # Lymph # [place] # Eos # Baso # Neutrophils % (Manual) Lymphocytes % (Manual) Monocytes % (Manual) Eosinophils % (Manual) Basophils % (Manual) Platelet Estimate Anisocytosis (manual) PT INR APTT Sodium 134 Potassium 4.2 Chloride 103 Carbon Dioxide 27 Anion Gap 8 L BUN 10 Creatinine 0.8 Est GFR ( Amer) > 60 Est GFR (Non-Af Amer) > 60 POC Glucose (mg/dL) 200 H Random Glucose 212 H Calcium 9.5 Total Bilirubin 0.5 AST 28 ALT 30 Alkaline Phosphatase 98 Total Creatine Kinase Troponin I NT-Pro-B Natriuret Pep Total Protein 6.9 Albumin 3.4 L Globulin 3.5 Albumin/Globulin Ratio 1.0 TSH 3rd Generation 17.30 H Urine Color Urine Clarity Urine pH Ur Specific [place] Urine Protein Urine Glucose (UA) Urine Ketones Urine Blood Urine Nitrate Urine Bilirubin Urine Urobilinogen Ur Leukocyte Esterase Urine RBC (Auto) Urine Microscopic WBC Ur Squamous Epith Cells Hyaline Casts 11/24/17 11:19 WBC RBC Hgb Hct MCV MCH MCHC RDW Plt Count MPV Neut % (Auto) Lymph % (Auto) [place] % (Auto) Eos % (Auto) Baso % (Auto) Neut # Lymph # [place] # Eos # Baso # Neutrophils % (Manual) Lymphocytes % (Manual) Monocytes % (Manual) Eosinophils % (Manual) Basophils % (Manual) Platelet Estimate Anisocytosis (manual) PT INR APTT Sodium Potassium Chloride Carbon Dioxide Anion Gap BUN Creatinine Est GFR ( Amer) Est GFR (Non-Af Amer) POC Glucose (mg/dL) 188 H Random Glucose Calcium Total Bilirubin AST ALT Alkaline Phosphatase Total Creatine Kinase Troponin I NT-Pro-B Natriuret Pep Total Protein Albumin Globulin Albumin/Globulin Ratio TSH 3rd Generation Urine Color Urine Clarity Urine pH Ur Specific [place] Urine Protein Urine Glucose (UA) Urine Ketones Urine Blood Urine Nitrate Urine Bilirubin Urine Urobilinogen Ur Leukocyte Esterase Urine RBC (Auto) Urine Microscopic WBC Ur Squamous Epith Cells Hyaline Casts
--- NOTE | 2017-11-24 13:25 | MRI ---
PROCEDURE: MRI brain dated 11/24/2017. HISTORY: Hemorrhagic brain mets COMPARISON: Comparison made with CT scan of the brain 11/15/2017. TECHNIQUE: Multiplanar, multisequence MR images of the brain were obtained without intravenous contrast enhancement. FINDINGS: HEMORRHAGE: The current study re- demonstrates a heterogeneous lesion in the right parieto-occipital watershed zone which exhibits hemorrhagic and cystic changes. This could represent a hemorrhagic tumor - metastasis therefore followup of post-contrast MRI sequence recommended to confirm and exclude other pathology such as hemorrhage into an underlying vascular lesion or possibly amyloid angiopathy. . This lesion is surrounded by a relatively wide margin of vasogenic white matter edema which extends superiorly and posteriorly to the level of the mid vertex. . This lesion and surrounding edema exert considerable mass effect with overlying sulcal effacement and compression of the right occipital horn, right atrium, right temporal horn and to a lesser degree posterior body of the right lateral ventricle There are no other mass lesions identified. DWI: No evidence of an acute or early subacute infarction. BRAIN PARENCHYMA: As above. Mild chronic periventricular white matter ischemic changes with multiple discrete chronic appearing lacunar type infarcts scattered about deep and subcortical white matter both cerebral hemispheres. Moderate generalized volume loss. VENTRICLES: No obstructive hydrocephalus. CRANIUM: Unremarkable. ORBITS: Changes of bilateral cataract surgery again noted. PARANASAL SINUSES/MASTOIDS: Mild mucosal thickening left maxillary antrum VASCULAR SYSTEM: Visualized major vascular flow voids at skull base are patent. OTHER FINDINGS: None. IMPRESSION: There is an elliptical shaped heterogeneous lesion in the right parasagittal posterior parieto-occipital watershed zone that exhibits some hemorrhagic and cystic changes. Follow-up post-contrast MRI sequences recommended to assess for underlying mass exclude the possibility of hemorrhage into an underlying vascular lesion or amyloid angiopathy. The lesion is surrounded by a wide margin of vasogenic white matter edema which together exert considerable surrounding mass effect as detailed above. Mild chronic white matter ischemic changes. These findings discussed with ICU Nurse Mayra at approximately 12:51 p.m. with written down and read back verification.
[2017-11-24] MEDS ORDERED: Lidocaine 1% Inj (20ml) ONE (14:01)
--- NOTE | 2017-11-24 14:30 | PCM.SURG1 ---
Surgeon's Initial Post Op Note - Surgeon's Notes Surgeon: Fabien Reilly MD Paper Machine Back Tender: None Type of Anesthesia: Local Pre-Operative Diagnosis: Metastases, poor IV access Operative Findings: patent right basilic vein. catheter length: 40 cm. catheter tip: cavoatrial junction Post-Operative Diagnosis: same Operation Performed: RUE PICC Placement Specimen/Specimens Removed: n/a Estimated Blood Loss: EBL {In ML}: 0 Date of Surgery/Procedure: 11/24/17 Time of Surgery/Procedure: 14:30
[2017-11-24] MEDS: Dexamethasone 4 mg/1 ml IV SCH ×2 (16:22→22:23)
--- NOTE | 2017-11-24 16:30 | CP.CCUPN ---
CCU Subjective - Physician Review Events Since Last Encounter (Free Text): 11/24/17 16:41 The patient was Seen/interviewed and examined by me at the bedside during ICU round, Medical records reviewed and Management issues were discussed and formulated with the house staff. Events reviewed Mrs Moore is 82 years old female with PMHx of Diabetes, Hypothyroidism and Stage IV lung cancer that was recently diagnosed at [facility] with BX ( Likely small cell lung cancer) Who has been with unsteady gait at her home, worse since 5 days ago. She was brought to the Emergency department because she fell in the Bathroom hitting the front and back of her head as well as right rib cage. No external bleeding from the head. She Pt complained of dizziness and headache. No Loss of consciousness as per family. 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 Awaiting family decision about further surgical intervention Pt clinically and neurologically improved No Vasopressors Awake, comfortable, NAD Pt Alert, follows some commands Denies any chest pain, SOB or Palpitations No N/vomiting Afebrile, NSR on the monitor Underwent right basilic vein RUE PICC Placement today due to poor peripheral IV access. Bilateral venodyne boots intact Patient had CXR and chest CT scan comparable with post-obstructive pneumonia, started on IV Vanco and Zosyn Critical Care Time Spent (in minutes): 35 CCU Objective - Vital Signs / Intake & Output Vital Signs (Last 4 hours): Vital Signs Temp Pulse Resp BP Pulse Ox 11/24/17 16:00 97.3 F L 85 20 170/82 H 97 11/24/17 14:29 97.6 F 91 H 21 138/78 97 11/24/17 14:00 88 17 165/85 H 97 Intake and Output (Last 8hrs): Intake & Output 11/24/17 11/24/17 11/24/17 06:59 14:59 22:59 Intake Total 275 770 Output Total 500 Balance -225 770 Intake: IV 225 Intake, Piggyback 50 530 Oral 240 Output: Urine 500 Urethral (Baker) 500 - Physical Exam Physical Exam Limitations: Positive for: Altered Mental Status, Clinical Condition Head: Positive for: Atraumatic, Normocephalic. Negative for: Tenderness, Contusion, Swelling Pupils: Positive for: PERRL. Negative for: Sluggish, Non-Reactive Conjunctiva: Positive for: Normal. Negative for: Injected, Icteric Mouth: Positive for: Moist Mucous Membranes Nose (Internal): Positive for: Normal Inspection Neck: Positive for: Normal Range of Motion, Trachea Midline. Negative for: Meningeal Signs, MIDLINE TENDERNESS, Paraspinal Tenderness, JVD, Lymphadenopathy , Bruit, Other Respiratory/Chest: Positive for: Good Air Exchange, Decreased Breath Sounds ( Left side), Rhonchi. Negative for: Respiratory Distress, Accessory Muscle Use, Wheezes, Rales, Retracting Cardiovascular: Positive for: Regular Rate and Rhythm, Normal S1, S2, Peripheal Pulses Present. Negative for: Murmurs, Irregular Rhythm, Tachycardic, Bradycardic Upper Extremity: Positive for: Normal Inspection, NORMAL PULSES, Capillary Refill < 2s. Negative for: Cyanosis, Edema Lower Extremity: Positive for: Normal Inspection, NORMAL PULSES, Capillary Refill < 2 s. Negative for: Edema, CALF TENDERNESS - Medications Active Medications: Active Medications Generic Name Dose Route Start Last Admin Trade Name Freq PRN Reason Stop Dose Admin Dexamethasone 4 mg 11/24/17 16:00 Decadron Inj IV Q6 MARY ANN Sodium Chloride 1,000 mls @ 75 mls/hr 11/24/17 00:45 11/24/17 02:04 Sodium Chloride 0.9% IV 11/25/17 00:41 75 mls/hr .[id number] MARY ANN Administration Piperacillin Sod/Tazobactam 100 mls @ 100 mls/hr 11/24/17 10:00 11/24/17 12: 17 Sod 3.375 gm/ Sodium Chloride IVPB 100 mls/hr Q6 MARY ANN Administration Protocol Vancomycin HCl 750 mg/ Sodium 250 mls @ 166.667 mls/hr 11/24/17 08:30 11:48 Chloride IVPB 166.667 mls/hr Q12H MARY ANN Administration Protocol Mannitol 100 mls @ 100 mls/hr 11/24/17 13:00 11/24/17 14:37 Mannitol IV 100 mls/hr Q6H MARY ANN Administration Levothyroxine Sodium 60 mcg 11/25/17 09:00 Synthroid IVP DAILY MARY ANN Pantoprazole Sodium 40 mg 11/24/17 09:00 11/24/17 10:56 Protonix Inj IVP 40 mg DAILY MARY ANN Administration - Patient Studies Lab Studies: Lab Studies 11/24/17 11/24/17 11/24/17 Range/Units 15:50 12:59 12:59 WBC (4.8-10.8) K/uL RBC (3.80-5.20) Mil/uL Hgb (12.0-16.0) g/dL Hct (34.0-47.0) % MCV (81.0-99.0) fl MCH (27.0-31.0) pg MCHC (33.0-37.0) g/dL RDW (11.5-14.5) % Plt Count (130-400) K/uL MPV (7.2-11.7) fl Neut % (Auto) (50.0-75.0) % Lymph % (Auto) (20.0-40.0) % [place] % (Auto) (0.0-10.0) % Eos % (Auto) (0.0-4.0) % Baso % (Auto) (0.0-2.0) % Neut # (1.8-7.0) K/uL Lymph # (1.0-4.3) K/uL [place] # (0.0-0.8) K/uL Eos # (0.0-0.7) K/uL Baso # (0.0-0.2) K/uL Neutrophils % (Manual) (42-75) % Lymphocytes % (Manual) (20-50) % Monocytes % (Manual) (0-10) % Eosinophils % (Manual) (0-7) % Basophils % (Manual) (0-2) % Platelet Estimate (NORMAL) Anisocytosis (manual) PT (9.8-13.1) Seconds INR (0.9-1.2) APTT (25.6-37.1) Seconds Sodium (132-148) mmol/l Potassium (3.6-5.0) MMOL/L Chloride (98-107) mmol/L Carbon Dioxide (22-30) mmol/L Anion Gap (10-20) BUN (7-17) mg/dl Creatinine (0.7-1.2) mg/dl Est GFR ( Amer) Est GFR (Non-Af Amer) POC Glucose (mg/dL) 214 H (65-110) mg/dL Random Glucose (65-105) mg/dL Calcium (8.4-10.2) mg/dL Total Bilirubin (0.2-1.3) mg/dl AST (14-36) U/L ALT (9-52) U/L Alkaline Phosphatase (38-126) U/L Total Creatine Kinase (30-135) U/L Troponin I (0.00-0.120) ng/mL NT-Pro-B Natriuret Pep (0-900) pg/ml Total Protein (6.3-8.2) G/DL Albumin (3.5-5.0) g/dL Globulin (2.2-3.9) gm/dL Albumin/Globulin Ratio (1.0-2.1) Free T4 0.60 L (0.78-2.19) ng/dL Total T3 0.475 L (1.49-2.60) nmol/L TSH 3rd Generation (0.46-4.68) mIU/ML Urine Color (YELLOW) Urine Clarity (Clear) Urine pH (5.0-8.0) Ur Specific [place] (1.003-1.030) Urine Protein (NEGATIVE) mg/dL Urine Glucose (UA) (Normal) mg/dL Urine Ketones (NEGATIVE) mg/dL Urine Blood (NEGATIVE) Urine Nitrate (NEGATIVE) Urine Bilirubin (NEGATIVE) Urine Urobilinogen (0.2-1.0) mg/dL Ur Leukocyte Esterase (Negative) Geoffrey/uL Urine RBC (Auto) (0-3) /hpf Urine Microscopic WBC (0-5) /hpf Ur Squamous Epith Cells (0-5) /hpf Hyaline Casts (0-2) /hpf 11/24/17 11/24/17 11/24/17 Range/Units 11:19 10:04 05:52 WBC (4.8-10.8) K/uL RBC (3.80-5.20) Mil/uL Hgb (12.0-16.0) g/dL Hct (34.0-47.0) % MCV (81.0-99.0) fl MCH (27.0-31.0) pg MCHC (33.0-37.0) g/dL RDW (11.5-14.5) % Plt Count (130-400) K/uL MPV (7.2-11.7) fl Neut % (Auto) (50.0-75.0) % Lymph % (Auto) (20.0-40.0) % [place] % (Auto) (0.0-10.0) % Eos % (Auto) (0.0-4.0) % Baso % (Auto) (0.0-2.0) % Neut # (1.8-7.0) K/uL Lymph # (1.0-4.3) K/uL [place] # (0.0-0.8) K/uL Eos # (0.0-0.7) K/uL Baso # (0.0-0.2) K/uL Neutrophils % (Manual) (42-75) % Lymphocytes % (Manual) (20-50) % Monocytes % (Manual) (0-10) % Eosinophils % (Manual) (0-7) % Basophils % (Manual) (0-2) % Platelet Estimate (NORMAL) Anisocytosis (manual) PT (9.8-13.1) Seconds INR (0.9-1.2) APTT (25.6-37.1) Seconds Sodium (132-148) mmol/l Potassium (3.6-5.0) MMOL/L Chloride (98-107) mmol/L Carbon Dioxide (22-30) mmol/L Anion Gap (10-20) BUN (7-17) mg/dl Creatinine (0.7-1.2) mg/dl Est GFR ( Amer) Est GFR (Non-Af Amer) POC Glucose (mg/dL) 188 H 200 H (65-110) mg/dL Random Glucose (65-105) mg/dL Calcium (8.4-10.2) mg/dL Total Bilirubin (0.2-1.3) mg/dl AST (14-36) U/L ALT (9-52) U/L Alkaline Phosphatase (38-126) U/L Total Creatine Kinase (30-135) U/L Troponin I (0.00-0.120) ng/mL NT-Pro-B Natriuret Pep (0-900) pg/ml Total Protein (6.3-8.2) G/DL Albumin (3.5-5.0) g/dL Globulin (2.2-3.9) gm/dL Albumin/Globulin Ratio (1.0-2.1) Free T4 (0.78-2.19) ng/dL Total T3 (1.49-2.60) nmol/L TSH 3rd Generation 17.30 H (0.46-4.68) mIU/ML Urine Color (YELLOW) Urine Clarity (Clear) Urine pH (5.0-8.0) Ur Specific [place] (1.003-1.030) Urine Protein (NEGATIVE) mg/dL Urine Glucose (UA) (Normal) mg/dL Urine Ketones (NEGATIVE) mg/dL Urine Blood (NEGATIVE) Urine Nitrate (NEGATIVE) Urine Bilirubin (NEGATIVE) Urine Urobilinogen (0.2-1.0) mg/dL Ur Leukocyte Esterase (Negative) Geoffrey/uL Urine RBC (Auto) (0-3) /hpf Urine Microscopic WBC (0-5) /hpf Ur Squamous Epith Cells (0-5) /hpf Hyaline Casts (0-2) /hpf 11/24/17 11/24/17 11/24/17 Range/Units 04:50 04:50 02:12 WBC 4.5 L (4.8-10.8) K/uL RBC 3.63 L (3.80-5.20) Mil/uL Hgb 11.3 L (12.0-16.0) g/dL Hct 34.2 (34.0-47.0) % MCV 94.2 (81.0-99.0) fl MCH 31.1 H (27.0-31.0) pg MCHC 33.0 (33.0-37.0) g/dL RDW 15.7 H (11.5-14.5) % Plt Count 203 (130-400) K/uL MPV 8.9 (7.2-11.7) fl Neut % (Auto) 86.5 H (50.0-75.0) % Lymph % (Auto) 9.7 L (20.0-40.0) % [place] % (Auto) 2.8 (0.0-10.0) % Eos % (Auto) 0.3 (0.0-4.0) % Baso % (Auto) 0.7 (0.0-2.0) % Neut # 3.9 (1.8-7.0) K/uL Lymph # 0.4 L (1.0-4.3) K/uL [place] # 0.1 (0.0-0.8) K/uL Eos # 0.0 (0.0-0.7) K/uL Baso # 0.0 (0.0-0.2) K/uL Neutrophils % (Manual) 85 H (42-75) % Lymphocytes % (Manual) 10 L (20-50) % Monocytes % (Manual) 3 (0-10) % Eosinophils % (Manual) 1 (0-7) % Basophils % (Manual) 1 (0-2) % Platelet Estimate Normal (NORMAL) Anisocytosis (manual) Slight PT (9.8-13.1) Seconds INR (0.9-1.2) APTT (25.6-37.1) Seconds Sodium 134 (132-148) mmol/l Potassium 4.2 (3.6-5.0) MMOL/L Chloride 103 (98-107) mmol/L Carbon Dioxide 27 (22-30) mmol/L Anion Gap 8 L (10-20) BUN 10 (7-17) mg/dl Creatinine 0.8 (0.7-1.2) mg/dl Est GFR ( Amer) > 60 Est GFR (Non-Af Amer) > 60 POC Glucose (mg/dL) 156 H (65-110) mg/dL Random Glucose 212 H (65-105) mg/dL Calcium 9.5 (8.4-10.2) mg/dL Total Bilirubin 0.5 (0.2-1.3) mg/dl AST 28 (14-36) U/L ALT 30 (9-52) U/L Alkaline Phosphatase 98 (38-126) U/L Total Creatine Kinase (30-135) U/L Troponin I (0.00-0.120) ng/mL NT-Pro-B Natriuret Pep (0-900) pg/ml Total Protein 6.9 (6.3-8.2) G/DL Albumin 3.4 L (3.5-5.0) g/dL Globulin 3.5 (2.2-3.9) gm/dL Albumin/Globulin Ratio 1.0 (1.0-2.1) Free T4 (0.78-2.19) ng/dL Total T3 (1.49-2.60) nmol/L TSH 3rd Generation (0.46-4.68) mIU/ML Urine Color (YELLOW) Urine Clarity (Clear) Urine pH (5.0-8.0) Ur Specific [place] (1.003-1.030) Urine Protein (NEGATIVE) mg/dL Urine Glucose (UA) (Normal) mg/dL Urine Ketones (NEGATIVE) mg/dL Urine Blood (NEGATIVE) Urine Nitrate (NEGATIVE) Urine Bilirubin (NEGATIVE) Urine Urobilinogen (0.2-1.0) mg/dL Ur Leukocyte Esterase (Negative) Geoffrey/uL Urine RBC (Auto) (0-3) /hpf Urine Microscopic WBC (0-5) /hpf Ur Squamous Epith Cells (0-5) /hpf Hyaline Casts (0-2) /hpf 11/23/17 11/23/17 11/23/17 Range/Units 23:10 22:10 22:10 WBC 5.7 (4.8-10.8) K/uL RBC 3.79 L (3.80-5.20) Mil/uL Hgb 11.7 L (12.0-16.0) g/dL Hct 35.5 (34.0-47.0) % MCV 93.5 (81.0-99.0) fl MCH 30.8 (27.0-31.0) pg MCHC 32.9 L (33.0-37.0) g/dL RDW 15.8 H (11.5-14.5) % Plt Count 218 (130-400) K/uL MPV 9.2 (7.2-11.7) fl Neut % (Auto) 68.3 (50.0-75.0) % Lymph % (Auto) 17.8 L (20.0-40.0) % [place] % (Auto) 11.0 H (0.0-10.0) % Eos % (Auto) 2.5 (0.0-4.0) % Baso % (Auto) 0.4 (0.0-2.0) % Neut # 3.9 (1.8-7.0) K/uL Lymph # 1.0 (1.0-4.3) K/uL [place] # 0.6 (0.0-0.8) K/uL Eos # 0.1 (0.0-0.7) K/uL Baso # 0.0 (0.0-0.2) K/uL Neutrophils % (Manual) (42-75) % Lymphocytes % (Manual) (20-50) % Monocytes % (Manual) (0-10) % Eosinophils % (Manual) (0-7) % Basophils % (Manual) (0-2) % Platelet Estimate (NORMAL) Anisocytosis (manual) PT 11.4 (9.8-13.1) Seconds INR 1.0 (0.9-1.2) APTT 30.2 (25.6-37.1) Seconds Sodium 134 (132-148) mmol/l Potassium 4.1 (3.6-5.0) MMOL/L Chloride 103 (98-107) mmol/L Carbon Dioxide 26 (22-30) mmol/L Anion Gap 9 L (10-20) BUN 12 (7-17) mg/dl Creatinine 0.8 (0.7-1.2) mg/dl Est GFR ( Amer) > 60 Est GFR (Non-Af Amer) > 60 POC Glucose (mg/dL) (65-110) mg/dL Random Glucose 163 H (65-105) mg/dL Calcium 9.8 (8.4-10.2) mg/dL Total Bilirubin (0.2-1.3) mg/dl AST (14-36) U/L ALT (9-52) U/L Alkaline Phosphatase (38-126) U/L Total Creatine Kinase 76 (30-135) U/L Troponin I < 0.0120 (0.00-0.120) ng/mL NT-Pro-B Natriuret Pep 281 (0-900) pg/ml Total Protein (6.3-8.2) G/DL Albumin (3.5-5.0) g/dL Globulin (2.2-3.9) gm/dL Albumin/Globulin Ratio (1.0-2.1) Free T4 (0.78-2.19) ng/dL Total T3 (1.49-2.60) nmol/L TSH 3rd Generation (0.46-4.68) mIU/ML Urine Color (YELLOW) Urine Clarity (Clear) Urine pH (5.0-8.0) Ur Specific [place] (1.003-1.030) Urine Protein (NEGATIVE) mg/dL Urine Glucose (UA) (Normal) mg/dL Urine Ketones (NEGATIVE) mg/dL Urine Blood (NEGATIVE) Urine Nitrate (NEGATIVE) Urine Bilirubin (NEGATIVE) Urine Urobilinogen (0.2-1.0) mg/dL Ur Leukocyte Esterase (Negative) Geoffrey/uL Urine RBC (Auto) (0-3) /hpf Urine Microscopic WBC (0-5) /hpf Ur Squamous Epith Cells (0-5) /hpf Hyaline Casts (0-2) /hpf 11/23/17 Range/Units 22:00 WBC (4.8-10.8) K/uL RBC (3.80-5.20) Mil/uL Hgb (12.0-16.0) g/dL Hct (34.0-47.0) % MCV (81.0-99.0) fl MCH (27.0-31.0) pg MCHC (33.0-37.0) g/dL RDW (11.5-14.5) % Plt Count (130-400) K/uL MPV (7.2-11.7) fl Neut % (Auto) (50.0-75.0) % Lymph % (Auto) (20.0-40.0) % [place] % (Auto) (0.0-10.0) % Eos % (Auto) (0.0-4.0) % Baso % (Auto) (0.0-2.0) % Neut # (1.8-7.0) K/uL Lymph # (1.0-4.3) K/uL [place] # (0.0-0.8) K/uL Eos # (0.0-0.7) K/uL Baso # (0.0-0.2) K/uL Neutrophils % (Manual) (42-75) % Lymphocytes % (Manual) (20-50) % Monocytes % (Manual) (0-10) % Eosinophils % (Manual) (0-7) % Basophils % (Manual) (0-2) % Platelet Estimate (NORMAL) Anisocytosis (manual) PT (9.8-13.1) Seconds INR (0.9-1.2) APTT (25.6-37.1) Seconds Sodium (132-148) mmol/l Potassium (3.6-5.0) MMOL/L Chloride (98-107) mmol/L Carbon Dioxide (22-30) mmol/L Anion Gap (10-20) BUN (7-17) mg/dl Creatinine (0.7-1.2) mg/dl Est GFR ( Amer) Est GFR (Non-Af Amer) POC Glucose (mg/dL) (65-110) mg/dL Random Glucose (65-105) mg/dL Calcium (8.4-10.2) mg/dL Total Bilirubin (0.2-1.3) mg/dl AST (14-36) U/L ALT (9-52) U/L Alkaline Phosphatase (38-126) U/L Total Creatine Kinase (30-135) U/L Troponin I (0.00-0.120) ng/mL NT-Pro-B Natriuret Pep (0-900) pg/ml Total Protein (6.3-8.2) G/DL Albumin (3.5-5.0) g/dL Globulin (2.2-3.9) gm/dL Albumin/Globulin Ratio (1.0-2.1) Free T4 (0.78-2.19) ng/dL Total T3 (1.49-2.60) nmol/L TSH 3rd Generation (0.46-4.68) mIU/ML Urine Color Yellow (YELLOW) Urine Clarity Slighty-cloudy (Clear) Urine pH 7.0 (5.0-8.0) Ur Specific [place] 1.008 (1.003-1.030) Urine Protein Negative (NEGATIVE) mg/dL Urine Glucose (UA) Neg (Normal) mg/dL Urine Ketones Negative (NEGATIVE) mg/dL Urine Blood Negative (NEGATIVE) Urine Nitrate Negative (NEGATIVE) Urine Bilirubin Negative (NEGATIVE) Urine Urobilinogen 0.2-1.0 (0.2-1.0) mg/dL Ur Leukocyte Esterase Small (Negative) Geoffrey/uL Urine RBC (Auto) 1 (0-3) /hpf Urine Microscopic WBC 8 H (0-5) /hpf Ur Squamous Epith Cells 2 (0-5) /hpf Hyaline Casts 3-5 H (0-2) /hpf Laboratory Results - last 24 hr 11/23/17 11/23/17 11/23/17 22:00 22:10 22:10 WBC 5.7 RBC 3.79 L Hgb 11.7 L Hct 35.5 MCV 93.5 MCH 30.8 MCHC 32.9 L RDW 15.8 H Plt Count 218 MPV 9.2 Neut % (Auto) 68.3 Lymph % (Auto) 17.8 L [place] % (Auto) 11.0 H Eos % (Auto) 2.5 Baso % (Auto) 0.4 Neut # 3.9 Lymph # 1.0 [place] # 0.6 Eos # 0.1 Baso # 0.0 Neutrophils % (Manual) Lymphocytes % (Manual) Monocytes % (Manual) Eosinophils % (Manual) Basophils % (Manual) Platelet Estimate Anisocytosis (manual) PT INR APTT Sodium 134 Potassium 4.1 Chloride 103 Carbon Dioxide 26 Anion Gap 9 L BUN 12 Creatinine 0.8 Est GFR ( Amer) > 60 Est GFR (Non-Af Amer) > 60 POC Glucose (mg/dL) Random Glucose 163 H Calcium 9.8 Total Bilirubin AST ALT Alkaline Phosphatase Total Creatine Kinase 76 Troponin I < 0.0120 NT-Pro-B Natriuret Pep 281 Total Protein Albumin Globulin Albumin/Globulin Ratio Free T4 Total T3 TSH 3rd Generation Urine Color Yellow Urine Clarity Slighty-cloudy Urine pH 7.0 Ur Specific [place] 1.008 Urine Protein Negative Urine Glucose (UA) Neg Urine Ketones Negative Urine Blood Negative Urine Nitrate Negative Urine Bilirubin Negative Urine Urobilinogen 0.2-1.0 Ur Leukocyte Esterase Small Urine RBC (Auto) 1 Urine Microscopic WBC 8 H Ur Squamous Epith Cells 2 Hyaline Casts 3-5 H 11/23/17 11/24/17 11/24/17 23:10 02:12 04:50 WBC 4.5 L RBC 3.63 L Hgb 11.3 L Hct 34.2 MCV 94.2 MCH 31.1 H MCHC 33.0 RDW 15.7 H Plt Count 203 MPV 8.9 Neut % (Auto) 86.5 H Lymph % (Auto) 9.7 L [place] % (Auto) 2.8 Eos % (Auto) 0.3 Baso % (Auto) 0.7 Neut # 3.9 Lymph # 0.4 L [place] # 0.1 Eos # 0.0 Baso # 0.0 Neutrophils % (Manual) 85 H Lymphocytes % (Manual) 10 L Monocytes % (Manual) 3 Eosinophils % (Manual) 1 Basophils % (Manual) 1 Platelet Estimate Normal Anisocytosis (manual) Slight PT 11.4 INR 1.0 APTT 30.2 Sodium Potassium Chloride Carbon Dioxide Anion Gap BUN Creatinine Est GFR ( Amer) Est GFR (Non-Af Amer) POC Glucose (mg/dL) 156 H Random Glucose Calcium Total Bilirubin AST ALT Alkaline Phosphatase Total Creatine Kinase Troponin I NT-Pro-B Natriuret Pep Total Protein Albumin Globulin Albumin/Globulin Ratio Free T4 Total T3 TSH 3rd Generation Urine Color Urine Clarity Urine pH Ur Specific [place] Urine Protein Urine Glucose (UA) Urine Ketones Urine Blood Urine Nitrate Urine Bilirubin Urine Urobilinogen Ur Leukocyte Esterase Urine RBC (Auto) Urine Microscopic WBC Ur Squamous Epith Cells Hyaline Casts 11/24/17 11/24/17 11/24/17 04:50 05:52 10:04 WBC RBC Hgb Hct MCV MCH MCHC RDW Plt Count MPV Neut % (Auto) Lymph % (Auto) [place] % (Auto) Eos % (Auto) Baso % (Auto) Neut # Lymph # [place] # Eos # Baso # Neutrophils % (Manual) Lymphocytes % (Manual) Monocytes % (Manual) Eosinophils % (Manual) Basophils % (Manual) Platelet Estimate Anisocytosis (manual) PT INR APTT Sodium 134 Potassium 4.2 Chloride 103 Carbon Dioxide 27 Anion Gap 8 L BUN 10 Creatinine 0.8 Est GFR ( Amer) > 60 Est GFR (Non-Af Amer) > 60 POC Glucose (mg/dL) 200 H Random Glucose 212 H Calcium 9.5 Total Bilirubin 0.5 AST 28 ALT 30 Alkaline Phosphatase 98 Total Creatine Kinase Troponin I NT-Pro-B Natriuret Pep Total Protein 6.9 Albumin 3.4 L Globulin 3.5 Albumin/Globulin Ratio 1.0 Free T4 Total T3 TSH 3rd Generation 17.30 H Urine Color Urine Clarity Urine pH Ur Specific [place] Urine Protein Urine Glucose (UA) Urine Ketones Urine Blood Urine Nitrate Urine Bilirubin Urine Urobilinogen Ur Leukocyte Esterase Urine RBC (Auto) Urine Microscopic WBC Ur Squamous Epith Cells Hyaline Casts 11/24/17 11/24/17 11/24/17 11:19 12:59 12:59 WBC RBC Hgb Hct MCV MCH MCHC RDW Plt Count MPV Neut % (Auto) Lymph % (Auto) [place] % (Auto) Eos % (Auto) Baso % (Auto) Neut # Lymph # [place] # Eos # Baso # Neutrophils % (Manual) Lymphocytes % (Manual) Monocytes % (Manual) Eosinophils % (Manual) Basophils % (Manual) Platelet Estimate Anisocytosis (manual) PT INR APTT Sodium Potassium Chloride Carbon Dioxide Anion Gap BUN Creatinine Est GFR ( Amer) Est GFR (Non-Af Amer) POC Glucose (mg/dL) 188 H Random Glucose Calcium Total Bilirubin AST ALT Alkaline Phosphatase Total Creatine Kinase Troponin I NT-Pro-B Natriuret Pep Total Protein Albumin Globulin Albumin/Globulin Ratio Free T4 0.60 L Total T3 0.475 L TSH 3rd Generation Urine Color Urine Clarity Urine pH Ur Specific [place] Urine Protein Urine Glucose (UA) Urine Ketones Urine Blood Urine Nitrate Urine Bilirubin Urine Urobilinogen Ur Leukocyte Esterase Urine RBC (Auto) Urine Microscopic WBC Ur Squamous Epith Cells Hyaline Casts 11/24/17 15:50 WBC RBC Hgb Hct MCV MCH MCHC RDW Plt Count MPV Neut % (Auto) Lymph % (Auto) [place] % (Auto) Eos % (Auto) Baso % (Auto) Neut # Lymph # [place] # Eos # Baso # Neutrophils % (Manual) Lymphocytes % (Manual) Monocytes % (Manual) Eosinophils % (Manual) Basophils % (Manual) Platelet Estimate Anisocytosis (manual) PT INR APTT Sodium Potassium Chloride Carbon Dioxide Anion Gap BUN Creatinine Est GFR ( Amer) Est GFR (Non-Af Amer) POC Glucose (mg/dL) 214 H Random Glucose Calcium Total Bilirubin AST ALT Alkaline Phosphatase Total Creatine Kinase Troponin I NT-Pro-B Natriuret Pep Total Protein Albumin Globulin Albumin/Globulin Ratio Free T4 Total T3 TSH 3rd Generation Urine Color Urine Clarity Urine pH Ur Specific [place] Urine Protein Urine Glucose (UA) Urine Ketones Urine Blood Urine Nitrate Urine Bilirubin Urine Urobilinogen Ur Leukocyte Esterase Urine RBC (Auto) Urine Microscopic WBC Ur Squamous Epith Cells Hyaline Casts EKG/Cardiology Studies: Cardiology / EKG Studies 11/23/17 19:40 ELECTROCARDIOGRAM Stat Comment: Mode Of Transportation: Reason For Exam: dizziness, fall Fingerstick Blood Sugar Results: 214 Review of Systems - Cardiovascular Cardiovascular: absent: As Per HPI, Acrocyanosis, Chest Pain, Chest Pain at Rest , Chest Pain with Activity, Claudication, Diaphoresis, Dyspnea, Dyspnea on Exertion, Edema, Irregular Heart Rhythm, Pain Radiating to Arm/Neck/Jaw, Leg Edema, Leg Ulcers, Lightheadedness, Orthopnea, Palpitations, Paroxysmal Nocturnal Dyspnea, Pedal Edema, Radiating Pain, Rapid Heart Rate, Slow Heart Rate, Syncope, Other, UNREMARKABLE - Respiratory Respiratory: absent: As Per HPI, Cough, Dyspnea, Hemoptysis, Dyspnea on Exertion , Wheezing, Snoring, Stridor, Pain on Inspiration, Chest Congestion, Excessive Mucous Production, Change in Mucous Color, Pain with Coughing, Other, UNREMARKABLE - Gastrointestinal Gastrointestinal: absent: Abdominal Pain, Nausea, Vomiting - Neurological Neurological: Abnormal Gait, Frequent Falls, Lack of Coordination. absent: Abnormal Movements, Abnormal Speech, Behavioral Changes, Headaches, Loss of Vision, Restless Legs, Tremor Critical Care Progress Note - Extremities/Vascular Does the Patient have a Central Venous Catheter?: No Does the Patient need a Central Venous Catheter?: No Does the Patient have a Baker Catheter?: No Does the Patient need a Baker Catheter?: No - Nutrition Nutrition: Nutrition Category Date Time Status Consistent Carbohydrate [DIET] Diets 11/24/17 Lunch Active Assessment/Plan (1) Bleeding in brain Current Visit: Yes Status: Acute Priority: High Comment: Hemorrhagic Brain Metastasis Neurology & Neuro surgeon Consulted, suggested surgical intervension Family to decide ECHO ordered for pre-op evaluation Admitted to ICU for frequent neuro checks Keep NPO Swallow Eval DVT prophylaxis with SCD (2) CAP (community acquired pneumonia) Current Visit: Yes Status: Acute Comment: Patient had CXR and chest CT scan comparable with post-obstructive pneumonia, started on IV Vanco and Zosyn (3) Stage 4 malignant neoplasm of lung Current Visit: Yes Status: Acute Priority: High Comment: Patient refused Chemo, received short course of Radiotherapy for 4 cycles then could not tolerate further. Family consent obtained and Faxed to OSH to get all records Pain management Hydration Aggressive pulmonary toilet, chest PT, suctioning (4) Hypothyroidism Current Visit: Yes Status: Acute Priority: Medium (5) Diabetes mellitus Current Visit: Yes Status: Acute Priority: Medium (6) Metastasis to brain Current Visit: Yes Status: Acute Priority: High (7) DVT prophylaxis Current Visit: Yes Status: Acute
--- NOTE | 2017-11-24 21:33 | CP.PCM.CON ---
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 The patient has been receiving homeopathic treatment for her cancer. She reports to balance issues for the past few days which led to a fall in the bathroom. She did strike the back of her head and was brought to the hospital. Imaging of her head revealed a hemorrhagic brain lesion with vasogenic edema. Since then, she has been started on mannitol and steroids. Past medical history: Lung cancer Past surgical history: , cholecystectomy Family history: Daughter of breast cancer Social history: Former tobacco abuse, denies alcohol, and illicit drug use. Allergies: Several, see list. Review of systems: All remaining review of systems including HEENT, cardiovascular, respiratory, gastrointestinal, genitourinary, musculoskeletal, dermatologic, neurologic, and psychiatric are negative unless mentioned in the HPI. Past Patient History - Past Medical History & Family History Past Medical History?: Yes - Past Social History Smoking Status: Unknown If Ever Smoked Chewing Tobacco Use: No Cigar Use: No Alcohol: None Drugs: Denies, Inhalants Home Situation {Lives}: With Family - CARDIAC Hx Cardiac Disorders: No - PULMONARY Hx Respiratory Disorders: Yes Hx Lung Cancer: Yes (stage 4) - NEUROLOGICAL Hx Neurological Disorder: Yes Hx Dizziness: Yes - HEENT Hx HEENT Problems: No - RENAL Hx Chronic Kidney Disease: No - ENDOCRINE/METABOLIC Hx Endocrine Disorders: Yes (pre-diabetes) Hx Hypothyroidism: Yes - HEMATOLOGICAL/ONCOLOGICAL Hx Blood Disorders: No - INTEGUMENTARY Hx Dermatological Problems: No - MUSCULOSKELETAL/RHEUMATOLOGICAL Hx Musculoskeletal Disorders: Yes Hx Falls: Yes - GASTROINTESTINAL Hx Gastrointestinal Disorders: No - GENITOURINARY/GYNECOLOGICAL Hx Genitourinary Disorders: No - PSYCHIATRIC Hx Psychophysiologic Disorder: No Hx Substance Use: No - SURGICAL HISTORY Hx Cholecystectomy: Yes - ANESTHESIA Hx Anesthesia: Yes Hx Anesthesia Reactions: No Meds Allergies/Adverse Reactions: Allergies Allergy/AdvReac Type Severity Reaction Status Date / Time atropine [From Lomotil] Allergy SHORTNESS Verified 11/23/17 19:34 OF BREATH belladonna alkaloids Allergy URTICARIA Verified 11/23/17 19:34 cefadroxil [From Duricef] Allergy SHORTNESS Verified 11/23/17 19:34 OF BREATH diphenoxylate [From Lomotil] Allergy SHORTNESS Verified 11/23/17 19:34 OF BREATH erythromycin base Allergy DIARRHEA Verified 11/23/17 19:34 [From Erythrocin] hyoscyamine [From ] Allergy SHORTNESS Verified 11/23/17 19:34 OF BREATH iodine Allergy RASH Verified 11/23/17 19:34 Opioids - Morphine Analogues Allergy SHORTNESS Verified 11/23/17 19:45 OF BREATH Penicillins Allergy SHORTNESS Verified 11/23/17 19:34 OF BREATH phenobarbital [From ] Allergy SHORTNESS Verified 11/23/17 19:34 OF BREATH scopolamine [From ] Allergy SHORTNESS Verified 11/23/17 19:34 OF BREATH tetracycline Allergy DIARRHEA Verified 11/23/17 19:34 - Medications Medications: Current Medications Dexamethasone (Decadron Inj) 4 mg IV Q6 [facility] Last Admin: 11/24/17 16:22 Dose: 4 mg Sodium Chloride (Sodium Chloride 0.9%) 1,000 mls @ 75 mls/hr IV .[id number] [facility] Stop: 11/25/17 00:41 Last Admin: 11/24/17 16:24 Dose: 75 mls/hr Piperacillin Sod/Tazobactam (Sod 3.375 gm/ Sodium Chloride) 100 mls @ 100 mls/ hr IVPB Q6 [facility] PRN Reason: Protocol Last Admin: 11/24/17 16:23 Dose: 100 mls/hr Vancomycin HCl 750 mg/ Sodium (Chloride) 250 mls @ 166.667 mls/hr IVPB Q12H [facility] PRN Reason: Protocol Last Admin: 11/24/17 11:48 Dose: 166.667 mls/hr Mannitol (Mannitol) 100 mls @ 100 mls/hr IV Q6H [facility] Last Admin: 11/24/17 18:05 Dose: 100 mls/hr Levothyroxine Sodium (Synthroid) 60 mcg IVP DAILY [facility] Pantoprazole Sodium (Protonix Inj) 40 mg IVP DAILY [facility] Last Admin: 11/24/17 10:56 Dose: 40 mg Physical Exam - Head Exam Head Exam: ATRAUMATIC - Eye Exam Eye Exam: Normal appearance - ENT Exam ENT Exam: Mucous Membranes Dry - Respiratory Exam Respiratory Exam: Decreased Breath Sounds - Cardiovascular Exam Cardiovascular Exam: +S1, +S2 - GI/Abdominal Exam GI & Abdominal Exam: Normal Bowel Sounds - Extremities Exam Extremities exam: Positive for: pedal edema - Neurological Exam Neurological exam: Oriented x3 - Psychiatric Exam Psychiatric exam: Normal Affect, Normal Mood - Skin Skin Exam: Warm Results - Vital Signs Recent Vital Signs: Last Vital Signs Temp 98.0 F 11/24/17 20:00 Pulse 90 11/24/17 20:00 Resp 24 11/24/17 20:00 BP 150/68 11/24/17 20:00 Pulse Ox 95 11/24/17 20:00 - Labs Result Diagrams: 11/24/17 04:50 11/24/17 04:50 Labs: Laboratory Results - last 24 hr 11/23/17 11/23/17 11/23/17 22:00 22:10 22:10 WBC 5.7 RBC 3.79 L Hgb 11.7 L Hct 35.5 MCV 93.5 MCH 30.8 MCHC 32.9 L RDW 15.8 H Plt Count 218 MPV 9.2 Neut % (Auto) 68.3 Lymph % (Auto) 17.8 L [place] % (Auto) 11.0 H Eos % (Auto) 2.5 Baso % (Auto) 0.4 Neut # 3.9 Lymph # 1.0 Eagle # 0.6 Eos # 0.1 Baso # 0.0 Neutrophils % (Manual) Lymphocytes % (Manual) Monocytes % (Manual) Eosinophils % (Manual) Basophils % (Manual) Platelet Estimate Anisocytosis (manual) PT INR APTT Sodium 134 Potassium 4.1 Chloride 103 Carbon Dioxide 26 Anion Gap 9 L BUN 12 Creatinine 0.8 Est GFR ( Amer) > 60 Est GFR (Non-Af Amer) > 60 POC Glucose (mg/dL) Random Glucose 163 H Calcium 9.8 Total Bilirubin AST ALT Alkaline Phosphatase Total Creatine Kinase 76 Troponin I < 0.0120 NT-Pro-B Natriuret Pep 281 Total Protein Albumin Globulin Albumin/Globulin Ratio Free T4 Total T3 TSH 3rd Generation Urine Color Yellow Urine Clarity Slighty-cloudy Urine pH 7.0 Ur Specific [place] 1.008 Urine Protein Negative Urine Glucose (UA) Neg Urine Ketones Negative Urine Blood Negative Urine Nitrate Negative Urine Bilirubin Negative Urine Urobilinogen 0.2-1.0 Ur Leukocyte Esterase Small Urine RBC (Auto) 1 Urine Microscopic WBC 8 H Ur Squamous Epith Cells 2 Hyaline Casts 3-5 H 11/23/17 11/24/17 11/24/17 23:10 02:12 04:50 WBC 4.5 L RBC 3.63 L Hgb 11.3 L Hct 34.2 MCV 94.2 MCH 31.1 H MCHC 33.0 RDW 15.7 H Plt Count 203 MPV 8.9 Neut % (Auto) 86.5 H Lymph % (Auto) 9.7 L [place] % (Auto) 2.8 Eos % (Auto) 0.3 Baso % (Auto) 0.7 Neut # 3.9 Lymph # 0.4 L [place] # 0.1 Eos # 0.0 Baso # 0.0 Neutrophils % (Manual) 85 H Lymphocytes % (Manual) 10 L Monocytes % (Manual) 3 Eosinophils % (Manual) 1 Basophils % (Manual) 1 Platelet Estimate Normal Anisocytosis (manual) Slight PT 11.4 INR 1.0 APTT 30.2 Sodium Potassium Chloride Carbon Dioxide Anion Gap BUN Creatinine Est GFR ( Amer) Est GFR (Non-Af Amer) POC Glucose (mg/dL) 156 H Random Glucose Calcium Total Bilirubin AST ALT Alkaline Phosphatase Total Creatine Kinase Troponin I NT-Pro-B Natriuret Pep Total Protein Albumin Globulin Albumin/Globulin Ratio Free T4 Total T3 TSH 3rd Generation Urine Color Urine Clarity Urine pH Ur Specific [place] Urine Protein Urine Glucose (UA) Urine Ketones Urine Blood Urine Nitrate Urine Bilirubin Urine Urobilinogen Ur Leukocyte Esterase Urine RBC (Auto) Urine Microscopic WBC Ur Squamous Epith Cells Hyaline Casts 11/24/17 11/24/17 11/24/17 04:50 05:52 10:04 WBC RBC Hgb Hct MCV MCH MCHC RDW Plt Count MPV Neut % (Auto) Lymph % (Auto) [place] % (Auto) Eos % (Auto) Baso % (Auto) Neut # Lymph # [place] # Eos # Baso # Neutrophils % (Manual) Lymphocytes % (Manual) Monocytes % (Manual) Eosinophils % (Manual) Basophils % (Manual) Platelet Estimate Anisocytosis (manual) PT INR APTT Sodium 134 Potassium 4.2 Chloride 103 Carbon Dioxide 27 Anion Gap 8 L BUN 10 Creatinine 0.8 Est GFR ( Amer) > 60 Est GFR (Non-Af Amer) > 60 POC Glucose (mg/dL) 200 H Random Glucose 212 H Calcium 9.5 Total Bilirubin 0.5 AST 28 ALT 30 Alkaline Phosphatase 98 Total Creatine Kinase Troponin I NT-Pro-B Natriuret Pep Total Protein 6.9 Albumin 3.4 L Globulin 3.5 Albumin/Globulin Ratio 1.0 Free T4 Total T3 TSH 3rd Generation 17.30 H Urine Color Urine Clarity Urine pH Ur Specific [place] Urine Protein Urine Glucose (UA) Urine Ketones Urine Blood Urine Nitrate Urine Bilirubin Urine Urobilinogen Ur Leukocyte Esterase Urine RBC (Auto) Urine Microscopic WBC Ur Squamous Epith Cells Hyaline Casts 11/24/17 11/24/17 11/24/17 11:19 12:59 12:59 WBC RBC Hgb Hct MCV MCH MCHC RDW Plt Count MPV Neut % (Auto) Lymph % (Auto) [place] % (Auto) Eos % (Auto) Baso % (Auto) Neut # Lymph # [place] # Eos # Baso # Neutrophils % (Manual) Lymphocytes % (Manual) Monocytes % (Manual) Eosinophils % (Manual) Basophils % (Manual) Platelet Estimate Anisocytosis (manual) PT INR APTT Sodium Potassium Chloride Carbon Dioxide Anion Gap BUN Creatinine Est GFR ( Amer) Est GFR (Non-Af Amer) POC Glucose (mg/dL) 188 H Random Glucose Calcium Total Bilirubin AST ALT Alkaline Phosphatase Total Creatine Kinase Troponin I NT-Pro-B Natriuret Pep Total Protein Albumin Globulin Albumin/Globulin Ratio Free T4 0.60 L Total T3 0.475 L TSH 3rd Generation Urine Color Urine Clarity Urine pH Ur Specific [place] Urine Protein Urine Glucose (UA) Urine Ketones Urine Blood Urine Nitrate Urine Bilirubin Urine Urobilinogen Ur Leukocyte Esterase Urine RBC (Auto) Urine Microscopic WBC Ur Squamous Epith Cells Hyaline Casts 11/24/17 15:50 WBC RBC Hgb Hct MCV MCH MCHC RDW Plt Count MPV Neut % (Auto) Lymph % (Auto) [place] % (Auto) Eos % (Auto) Baso % (Auto) Neut # Lymph # [place] # Eos # Baso # Neutrophils % (Manual) Lymphocytes % (Manual) Monocytes % (Manual) Eosinophils % (Manual) Basophils % (Manual) Platelet Estimate Anisocytosis (manual) PT INR APTT Sodium Potassium Chloride Carbon Dioxide Anion Gap BUN Creatinine Est GFR ( Amer) Est GFR (Non-Af Amer) POC Glucose (mg/dL) 214 H Random Glucose Calcium Total Bilirubin AST ALT Alkaline Phosphatase Total Creatine Kinase Troponin I NT-Pro-B Natriuret Pep Total Protein Albumin Globulin Albumin/Globulin Ratio Free T4 Total T3 TSH 3rd Generation Urine Color Urine Clarity Urine pH Ur Specific [place] Urine Protein Urine Glucose (UA) Urine Ketones Urine Blood Urine Nitrate Urine Bilirubin Urine Urobilinogen Ur Leukocyte Esterase Urine RBC (Auto) Urine Microscopic WBC Ur Squamous Epith Cells Hyaline Casts Assessment & Plan (1) Metastasis to brain Assessment and Plan: lung cancer metastasis awaiting contrast enhanced MRI ? single metastatic focus vs multiple lesions seen by neurosurgery; family considering resection if isolated brain lesion on mannitol and steroids for vasogenic edema Status: Acute Priority: High (2) Lung cancer Assessment and Plan: stage IV brain metastasis on homeopathic treatment deferred chemotherapy but may want immunotherapy in the future Status: Acute (3) Anemia Assessment and Plan: mild, likely chronic disease Status: Acute (4) Leukopenia Assessment and Plan: mild, benign Thank you for this interesting consult. Status: Acute
--- NOTE | 2017-11-24 23:46 | CON ---
DATE: HISTORY OF PRESENT ILLNESS: Mrs. Moore is an 82-year-old female, who was referred for pulmonary evaluation. She was admitted with unsteadiness of gait for the past 5 days prior to presentation. She fell in her bathroom hitting the front part of her head and also the back of her head and her ribs. She did not lose consciousness, but was brought to the emergency room where she is admitted to the intensive care unit for workup and therapy. She is referred for pulmonary evaluation because of a history of stage IV lung cancer with metastasis. She had refused chemotherapy in the past. She also has the history of diabetes mellitus and hypothyroidism with multiple falls at home. FAMILY HISTORY: Noncontributory. SOCIAL HISTORY: She does not drink or smoke. REVIEW OF SYSTEMS: Remarkable for unsteadiness of gait. PHYSICAL EXAMINATION: GENERAL: The patient is alert, oriented to person, place and time. She seems to remember me when I walked into the room. VITAL SIGNS: Blood pressure 143/84, pulse of 80, respiratory rate of 20, she is afebrile. O2 sat 98% on room air. SKIN: Shows fair turgor. HEENT: Pupils are equal, reactive to light and accommodation. Mouth shows fair hygiene. LUNGS: Have dullness over the right entire lung field. The left lung has fair aeration. HEART: S1 and S2. ABDOMEN: Soft, nontender, no organomegaly. EXTREMITIES: Show no edema or cyanosis. Patient is able to move all extremities in all directions. LABORATORY DATA: CT scan of chest, abdomen, and pelvis already reviewed. The chest is remarkable for tracheal and bronchial tubes to be patent. There is encasement of right middle and lower lobe bronchi. There is mild narrowing of the right lower lobe bronchus. There is slight pleural thickening in the posterior right upper hemithorax extending from the apex to the lower hemithorax. There is a smaller anterior pleural base mass. There is also partially loculated right pleural effusion. There is a large supplemented component of the effusion. There is a right upper lobe volume loss, there is partial right middle lobe atelectasis. There is also compressive atelectasis with partial consolidation of right lower lobe, prominent interstitial lung in the left lung, there is no local consolidation of the left lung, there is minimal atelectasis scarring at the left base. There is no left effusion. IMPRESSION: This is an 82-year-old female with lung cancer that is metastatic. She also has large right parietal hemorrhagic metastasis. PLAN: The plan from the pulmonary point of view at this point would be supportive and symptomatic therapy. Patient may need palliative care. She has no shortness of breath at present and appears to be awake, alert, and comfortable. One would not attempt any pulmonary intervention for now. The only indication for pulmonary intervention will be a thoracentesis if the patient becomes short of breath, but for now, palliative care might be in order. We will continue to follow with you. Prognosis is extremely poor. Lyle Johnson MD
[2017-11-25] MEDS: Piperacillin/Tazobact 3.375 GM in Sodium Chloride 0.9% 100 ML IVPB SCH ×5 (00:38→22:25)
[2017-11-25] MEDS: Dexamethasone 4 mg/1 ml IV SCH ×4 (03:02→22:21)
--- NOTE | 2017-11-25 03:34 | CON ---
DATE: 11/24/2017 REASON FOR CONSULTATION: Abnormal CAT scan. CHIEF COMPLAINT: Patient was brought into [facility] with history of fall at home. Patient did have CT of the head, which was found to be abnormal and from neurological point of view, I was called in to evaluate her for further management. HISTORY OF PRESENT ILLNESS: Ms. Imani Moore is an 82-year-old right-handed , very pleasant female, in usual state of health for the last 4 to 5 days. Family found that she has been limping and dragging her left side and dropping things from her left side. She also is losing her vision on her left side. She also noted to have dizziness and fall prior to this. Patient had a fall in June and she was admitted in [facility]. There they found an injury to her right frontal area nerve. Since then, she has become drooped. During the time, she had workup, also showed right lung tumor and she undergone radiation therapy at [facility] at the cancer center. She did have further treatment. Further, she felt tired and fatigued. She did not have energy on her left side. PAST MEDICAL HISTORY: Diabetes, hypothyroidism, malignancy, history of cholecystectomy. PERSONAL HISTORY: Denies smoking or alcohol use. REVIEW OF SYSTEMS: Twelve-point system being reviewed. From neuro, left-sided weakness with vision impairment. MEDICATIONS: Dexamathasone, mannitol, piperacillin, pantoprazole, Synthroid, vancomycin. PHYSICAL EXAMINATION: VITAL SIGNS: Blood pressure 158/85, mean arterial pressure of 109, respiratory rate 16, temperature afebrile. NECK: Supple. No carotid bruit. HEART: Sounds regular. CHEST: Fair air entry. EXTREMITIES: No edema of legs. NEUROLOGIC: Patient was examined in the presence of her daughter. Right eye is closed. She was able to open partially. Pupils reactive to light. Extraocular movements normal. She had dense left homonymous hemianopia. No facial asymmetry. Hearing is normal. Tongue is midline. Good gag. Motor Examination: On outstretched hand with eyes closed, drift noted on the left side. Left leg is externally rotated. Deep tendon reflexes are absent. Plantars are upgoing on the left side. Sensory Examination: No extension to double simultaneous stimuli. Patient responded to pain symmetrically; however, the pain response is somewhat decreased on her left side compared with right side in the arm. Coordination: [id number] test is intact on the right side. IMAGING STUDIES: CT of the head and MRI of the brain reviewed showed heterogenous cystic as well as hemorrhagic mass seen over right parieto-occipital region with massive vasogenic edema. EKG, normal sinus rhythm. BLOOD WORKUP: WBC of 4.5, hemoglobin 11.3, hematocrit 34.2, platelets 203. PT 11.4, INR 1.0, PTT 30.2. Sodium 134, potassium 4.2, chloride 103, bicarbonate 27, BUN 10, glucose 214, BNP 281. Urinalysis shows wbc 8 and hyaline cast is 5. CONCLUSION: Ms. Imani Moore has been presenting with left homonymous hemianopia, left hemiparesis suggestive of right cortical dysfunction consistent with right parietooccipital region. The presenting lesion probably is metastatic process. 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 Patient was seen by neurosurgeon suggestive for decompression of the solitary lesion. The patient also scheduled to be seen by oncologist and rock wool applicator for further treatment for her lung cancer. Patient did have electroencephalogram today, which does not show any paroxysmal activities or focal slowing. Patient will be followed closely with you. Nasir Bellamy MD
[2017-11-25] MEDS ORDERED: Gadodiamide 287 MG/ML VIAL (15ML) IV ONE (08:16)
--- NOTE | 2017-11-25 08:39 | PN ---
DATE: 11/25/2017 SUBJECTIVE: The patient is seen and examined. Interim events noted. Consults noted and appreciated. The patient remains in Intensive Care Unit. Awake, responsive. Feels okay. No specific complaint of pain. Complains of generalized weakness. No chest pain or shortness of breath. PHYSICAL EXAMINATION: GENERAL: The patient is in Intensive Care Unit, in no acute distress. VITAL SIGNS: Stable. HEENT: No JVD. No thyromegaly. No lymphadenopathy. HEART: S1 and S2, normal and regular. No significant murmur, gallop or rub is heard. LUNGS: Good bilateral air entry. ABDOMEN: Soft, nontender. No organomegaly. No fluid. Bowel sounds are plus. EXTREMITIES: No edema. No calf swelling. No tenderness. No acute ischemia. CENTRAL NERVOUS SYSTEM: Essentially unchanged. DIAGNOSTIC DATA: Available diagnostic data reviewed. Telemetry monitoring does not reveal significant arrhythmias. The patient is for MRI with contrast today. ASSESSMENT AND PLAN: The patient's general condition is critically sick. Long-term prognosis remains poor. Case and plan discussed with family. Pedro Snyder MD
[2017-11-25] MEDS: Levothyroxine 100 mcg (0.1 mg) Inj IVP SCH (10:40)
--- NOTE | 2017-11-25 11:57 | CP.PCM.PN ---
Subjective - Date & Time of Evaluation Date of Evaluation: 11/25/17 Time of Evaluation: 11:57 - Subjective Subjective: AWAKE ALERT AND ORIENTED NO APPARENT RESPIRATORY DISTRESS Objective - Vital Signs/Intake and Output Vital Signs (last 24 hours): Temp Pulse Resp BP Pulse Ox 97.6 F 81 20 176/86 H 94 L 11/25/17 08:00 11/25/17 08:00 11/25/17 08:00 11/25/17 08:00 11/25/17 08:00 Intake and Output: 11/25/17 11/25/17 06:59 18:59 Output Total 900 Balance -900 - Medications Medications: Current Medications Acetaminophen (Tylenol 325mg Tab) 650 mg PO Q4 PRN PRN Reason: Headache Last Admin: 11/25/17 03:02 Dose: 650 mg Dexamethasone (Decadron Inj) 4 mg IV Q6 [facility] Last Admin: 11/25/17 10:40 Dose: 4 mg Piperacillin Sod/Tazobactam (Sod 3.375 gm/ Sodium Chloride) 100 mls @ 100 mls/ hr IVPB Q6 [facility] PRN Reason: Protocol Last Admin: 11/25/17 10:41 Dose: 100 mls/hr Vancomycin HCl 750 mg/ Sodium (Chloride) 250 mls @ 166.667 mls/hr IVPB Q12H [facility] PRN Reason: Protocol Last Admin: 11/25/17 10:42 Dose: 166.667 mls/hr Mannitol (Mannitol) 100 mls @ 100 mls/hr IV Q6H [facility] Last Admin: 11/25/17 06:06 Dose: 100 mls/hr Levothyroxine Sodium (Synthroid) 60 mcg IVP DAILY [facility] Last Admin: 11/25/17 10:40 Dose: 60 mcg Pantoprazole Sodium (Protonix Inj) 40 mg IVP DAILY [facility] Last Admin: 11/25/17 10:40 Dose: 40 mg - Labs Labs: 11/24/17 04:50 11/24/17 04:50 PT 11.4 Seconds (9.8-13.1) 11/23/17 23:10 INR 1.0 (0.9-1.2) 11/23/17 23:10 APTT 30.2 Seconds (25.6-37.1) 11/23/17 23:10 - Constitutional Appears: No Acute Distress - Head Exam Head Exam: ATRAUMATIC, NORMAL INSPECTION, NORMOCEPHALIC - Eye Exam Eye Exam: EOMI, Normal appearance, PERRL Pupil Exam: NORMAL ACCOMODATION, PERRL - ENT Exam ENT Exam: Mucous Membranes Moist, Normal Exam - Neck Exam Neck Exam: Full ROM, Normal Inspection. absent: Lymphadenopathy - Respiratory Exam Respiratory Exam: Prolonged Expiratory Phase, NORMAL BREATHING PATTERN - Cardiovascular Exam Cardiovascular Exam: REGULAR RHYTHM, +S1, +S2. absent: Murmur - GI/Abdominal Exam GI & Abdominal Exam: Soft, Normal Bowel Sounds. absent: Tenderness - Rectal Exam Rectal Exam: NORMAL INSPECTION - Extremities Exam Extremities Exam: Full ROM, Normal Capillary Refill, Normal Inspection. absent : Joint Swelling, Pedal Edema - Back Exam Back Exam: NORMAL INSPECTION - Neurological Exam Neurological Exam: Alert, Awake, CN II-XII Intact - Psychiatric Exam Psychiatric exam: Normal Affect, Normal Mood - Skin Skin Exam: Dry, Intact, Normal Color, Warm Assessment and Plan - Assessment and Plan (Free Text) Assessment: METASTATIC LUNG CANCER R PARIETAL HEMORRHAGIC MET Plan: CONTINUE CURRENT RX PROGNOSIS IS POOR
--- NOTE | 2017-11-25 11:59 | CP.CCUPN ---
CCU Subjective - Physician Review Events Since Last Encounter (Free Text): 11/25/17 11:55 Has been stable Just had MRI and echo, report pending BP has been stable alert and oriented, CCU Objective - Vital Signs / Intake & Output Vital Signs (Last 4 hours): Vital Signs Temp Pulse Resp BP Pulse Ox 11/25/17 08:00 97.6 F 81 20 176/86 H 94 L Intake and Output (Last 8hrs): Intake & Output 11/24/17 11/25/17 11/25/17 22:59 06:59 14:59 Intake Total 1000 Output Total 900 Balance 100 Intake: IV 900 Intake, Piggyback 100 Output: Urine 900 Urethral (Baker) 900 - Physical Exam Narrative Physical Exam (Free Text): 11/25/17 11:56 P/E Neck: No JVD Lungs: no ronchi, crackels abdomen: soft , non-tender Ext; No edema heart: no gallop Head: Positive for: Atraumatic, Normocephalic. Negative for: Tenderness, Contusion, Swelling Pupils: Positive for: PERRL. Negative for: Sluggish, Non-Reactive Conjunctiva: Positive for: Normal. Negative for: Injected, Icteric Mouth: Positive for: Moist Mucous Membranes Nose (Internal): Positive for: Normal Inspection Neck: Positive for: Normal Range of Motion, Trachea Midline. Negative for: Meningeal Signs, MIDLINE TENDERNESS, Paraspinal Tenderness, JVD, Lymphadenopathy , Bruit, Other Respiratory/Chest: Positive for: Good Air Exchange, Decreased Breath Sounds ( Left side), Rhonchi. Negative for: Respiratory Distress, Accessory Muscle Use, Wheezes, Rales, Retracting Cardiovascular: Positive for: Regular Rate and Rhythm, Normal S1, S2, Peripheal Pulses Present. Negative for: Murmurs, Irregular Rhythm, Tachycardic, Bradycardic Upper Extremity: Positive for: Normal Inspection, NORMAL PULSES, Capillary Refill < 2s. Negative for: Cyanosis, Edema Lower Extremity: Positive for: Normal Inspection, NORMAL PULSES, Capillary Refill < 2 s. Negative for: Edema, CALF TENDERNESS - Medications Active Medications: Active Medications Generic Name Dose Route Start Last Admin Trade Name Freq PRN Reason Stop Dose Admin Acetaminophen 650 mg 11/25/17 02:54 11/25/17 03:02 Tylenol 325mg Tab PO 650 mg Q4 PRN Administration Headache Dexamethasone 4 mg 12/29/17 16:00 11/25/17 10:40 Decadron Inj IV 4 mg Q6 MARY ANN Administration Piperacillin Sod/Tazobactam 100 mls @ 100 mls/hr 11/24/17 10:00 11/25/17 10: 41 Sod 3.375 gm/ Sodium Chloride IVPB 100 mls/hr Q6 MARY ANN Administration Protocol Vancomycin HCl 750 mg/ Sodium 250 mls @ 166.667 mls/hr 11/24/17 08:30 10:42 Chloride IVPB 166.667 mls/hr Q12H MARY ANN Administration Protocol Mannitol 100 mls @ 100 mls/hr 11/24/17 13:00 11/25/17 06:06 Mannitol IV 100 mls/hr Q6H MARY ANN Administration Levothyroxine Sodium 60 mcg 11/25/17 09:00 11/25/17 10:40 Synthroid IVP 60 mcg DAILY MARY ANN Administration Pantoprazole Sodium 40 mg 11/24/17 09:00 11/25/17 10:40 Protonix Inj IVP 40 mg DAILY MARY ANN Administration - Patient Studies Lab Studies: Lab Studies 11/25/17 11/24/17 11/24/17 Range/Units 11:22 15:50 12:59 POC Glucose (mg/dL) 200 H 214 H (65-110) mg/dL Free T4 (0.78-2.19) ng/dL Total T3 0.475 L (1.49-2.60) nmol/L 11/24/17 Range/Units 12:59 POC Glucose (mg/dL) (65-110) mg/dL Free T4 0.60 L (0.78-2.19) ng/dL Total T3 (1.49-2.60) nmol/L Laboratory Results - last 24 hr 11/24/17 11/24/17 11/24/17 12:59 12:59 15:50 POC Glucose (mg/dL) 214 H Free T4 0.60 L Total T3 0.475 L 11/25/17 11:22 POC Glucose (mg/dL) 200 H Free T4 Total T3 Fingerstick Blood Sugar Results: 200 Critical Care Progress Note - Extremities/Vascular Does the Patient have a Central Venous Catheter?: No - Nutrition Nutrition: Nutrition Category Date Time Status Consistent Carbohydrate [DIET] Diets 11/25/17 Breakfast Active Assessment/Plan - Assessment and Plan (Free Text) Assessment: Assessment/Plan: 11/15/17 (1) Bleeding in brain Current Visit: Yes Status: Acute Priority: High Comment: Just completed MRI, will be reviewed Hemorrhagic Brain Metastasis Neurology & Neuro surgeon Consulted, suggested surgical intervension, it will be done on Tuesday 11/28 Card clearnce bein done, Echo just completed. ECHO ordered for pre-op evaluation Swallow Eval DVT prophylaxis with SCD (2) CAP (community acquired pneumonia) Current Visit: Yes Status: Acute Comment: Patient had CXR and chest CT scan comparable with post-obstructive pneumonia, started on IV Vanco and Zosyn (3) Stage 4 malignant neoplasm of lung Current Visit: Yes Status: Acute Priority: High Comment: Patient refused Chemo, received short course of Radiotherapy for 4 cycles then could not tolerate further. 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
--- NOTE | 2017-11-25 12:46 | CARD ---
APPROVED REPORT EXAM: Two-dimensional and M-mode echocardiogram with Doppler and color Doppler. Other Information Quality : GoodTechnically LimitedRhythm : NSR INDICATION Pre-Op M-Mode DIMENSIONS Left Atrium (MM)4.11 (2.5-4.0cm)IVSd0.88 (0.7-1.1cm) Aortic Root2.96 (2.2-3.7cm)LVDd6.40 (4.0-5.6cm) Aortic Cusp Exc.1.89 (1.5-2.0cm)PWd1.28 (0.7-1.1cm) LVDs4.98 (2.0-3.8cm) Mitral Valve MV E Meoacmgx02.4cm/sMV DECEL [id number] A Xdedcjjd26.4cm/s MV QIZ47coO/A ratio1.0MVA (PHT)3.98cm2 TDI Lateral E' Peak V8.15cm/sMedial E' Peak V7.25cm/sE/Lateral E'8.9 E/Medial E'10.0 Pulmonary Valve PV Peak Nwwafvqh223.6cm/s LEFT VENTRICLE The left ventricle is normal size. There is normal left ventricular wall thickness. The left ventricular function is normal. The left ventricular ejection fraction is within the normal range. The Ejection Fraction is 45-50%. There is normal LV segmental wall motion. The left ventricular diastolic function is normal. No left ventricle thrombus noted on this study. There is no mass noted in the left ventricle. RIGHT VENTRICLE The right ventricle is normal size. There is normal right ventricular wall thickness. The right ventricular systolic function is normal. ATRIA The left atrium size is normal. The right atrium size is normal. The interatrial septum is intact with no evidence for an atrial septal defect. AORTIC VALVE The aortic valve is normal in structure. No aortic regurgitation is present. There is no aortic valvular stenosis. MITRAL VALVE The mitral valve is normal in structure. There is no evidence of mitral valve prolapse. There is no mitral valve stenosis. There is no mitral valve regurgitation noted. TRICUSPID VALVE The tricuspid valve is normal in structure. There is no tricuspid valve regurgitation noted. There is no tricuspid valve stenosis. PULMONIC VALVE The pulmonary valve is normal in structure. There is no pulmonic valvular regurgitation. GREAT VESSELS The aortic root is normal in size. The IVC is normal in size and collapses >50% with inspiration. PERICARDIAL EFFUSION The pericardium appears normal. <Conclusion> Technically poor limited study The left ventricle is normal size. The left ventricular function is normal. The left ventricular ejection fraction is within the normal range. The Ejection Fraction is 45-50%.
--- NOTE | 2017-11-25 14:23 | MRI ---
PROCEDURE: MRI of the brain dated 11/25/2017. HISTORY: Hemorrhage. Questionable brain tumor COMPARISON: Correlation made with prior noncontrast MRI of the brain 11/24/2017. . TECHNIQUE: Multi planar, multisequence MR images of the brain were obtained with and without intravenous contrast enhancement. 14 cc of Omniscan contrast material injected for this procedure. FINDINGS: HEMORRHAGE: The current study re- demonstrates a relatively large (approximately 5.1 cm cc x 4.5 cm AP x 2.8 cm trans) elliptical shaped hemorrhagic lesion located in the right parasagittal posterior parieto-occipital watershed zone. This lesion exhibits hemorrhage in varying stages of breakdown. There is also heterogeneous contrast enhancement throughout this lesion. Small cystic changes along the posterior to the superomedial aspect of this lesion less well seen due to the lack of heavily weighted T2 sequence. This focus is of uncertain etiology though could represent an metastatic lesion which has undergone hemorrhagic degradation. The possibility of a primary tumor not excluded. . The lesion is surrounded by a vasogenic edema which is also on less well seen as compared to heavily weighted T2 weighted sequences on prior exam. There is mass effect with overlying sulcal effacement and compression -anterior displacement of the right occipital horn right atrium and right temporal horn. IMPRESSION: There is an elliptical shaped hemorrhagic lesion in the right posterior parieto-occipital watershed zone that exhibits heterogeneous contrast enhancement and is of uncertain etiology. Rule out hemorrhagic metastatic tumor deposit or possibly a primary tumor. . Lesion is surrounded by vasogenic edema and together exert considerable surrounding mass effect.
--- NOTE | 2017-11-25 14:55 | EEG ---
DATE: This is a 16-channel electroencephalogram of awake and drowsy adult. During the study, photic stimulation was performed, hyperventilation was not performed. The resting electroencephalogram consists of moderate voltage, 40 to 50 volts, high theta activities mixed with low alpha activities seen at parietal and occipital leads. Anteriorly, fast activity superimposed with 2 to 3 Hz delta activity seen at frontal and central leads. The photic stimulation did not evoke driving response noted at 2 to 20 Hz. IMPRESSION: This is a normal electroencephalogram of awake and drowsy adult. During the study, neither electroencephalographic paroxysmal activities nor focal slowing noted. Nasir Bellamy MD
--- NOTE | 2017-11-25 17:50 | PN ---
DATE: 11/25/2017 NEUROLOGICAL PROBLEM: Status post fall, incidental metastatic lesion at right parieto-occipital region presenting with left sided hemiparesis and left homonymous hemianopia. PHYSICAL EXAMINATION: VITAL SIGNS: Blood pressure 150/76, mean arterial pressure of 100, respiratory rate 16, temperature 97.7. NEUROLOGIC: The patient is awake, alert, and oriented to person, place, and time. The patient is examined in the presence of her granddaughter. Again, left hemiparesis and left homonymous hemianopia is evident on exam. She denies headache. No nausea, no vomiting, no involuntary movements. RECOMMENDATIONS: The patient has metastatic lung cancer, probably the hemorrhagic mets in the brain. Because of solitary lesion in the brain, the patient can be benefitted with craniotomy with excision of the tumor which followed with either chemotherapy or radiation is considered. The patient's condition has been discussed with her granddaughter. The patient will be followed closely while she is in the hospital. Nasir Bellamy MD
--- NOTE | 2017-11-25 19:58 | CP.PCM.PN ---
Subjective - Date & Time of Evaluation Date of Evaluation: 11/25/17 Time of Evaluation: 17:00 - Subjective Subjective: No complaints, daughter at bedside Reviewed outside records, patient has small cell lung cancer. Objective - Vital Signs/Intake and Output Vital Signs (last 24 hours): Temp Pulse Resp BP Pulse Ox 97.3 F L 87 21 157/78 H 95 11/25/17 16:00 11/25/17 16:00 11/25/17 16:00 11/25/17 16:00 11/25/17 16:00 - Medications Medications: Current Medications Acetaminophen (Tylenol 325mg Tab) 650 mg PO Q4 PRN PRN Reason: Headache Last Admin: 11/25/17 03:02 Dose: 650 mg Dexamethasone (Decadron Inj) 4 mg IV Q6 MARY ANN Last Admin: 11/25/17 15:31 Dose: 4 mg Piperacillin Sod/Tazobactam (Sod 3.375 gm/ Sodium Chloride) 100 mls @ 100 mls/ hr IVPB Q6 MARY ANN PRN Reason: Protocol Last Admin: 11/25/17 15:32 Dose: 100 mls/hr Vancomycin HCl 750 mg/ Sodium (Chloride) 250 mls @ 166.667 mls/hr IVPB Q12H MARY ANN PRN Reason: Protocol Last Admin: 11/25/17 10:42 Dose: 166.667 mls/hr Mannitol (Mannitol) 100 mls @ 100 mls/hr IV Q6H MARY ANN Last Admin: 11/25/17 15:31 Dose: 100 mls/hr Levothyroxine Sodium (Synthroid) 60 mcg IVP DAILY MARY ANN Last Admin: 11/25/17 10:40 Dose: 60 mcg Pantoprazole Sodium (Protonix Inj) 40 mg IVP DAILY MARY ANN Last Admin: 11/25/17 10:40 Dose: 40 mg - Labs Labs: 11/24/17 04:50 11/24/17 04:50 PT 11.4 Seconds (9.8-13.1) 11/23/17 23:10 INR 1.0 (0.9-1.2) 11/23/17 23:10 APTT 30.2 Seconds (25.6-37.1) 11/23/17 23:10 - Head Exam Head Exam: ATRAUMATIC - Eye Exam Eye Exam: Normal appearance - ENT Exam ENT Exam: Mucous Membranes Dry - Respiratory Exam Respiratory Exam: NORMAL BREATHING PATTERN - Cardiovascular Exam Cardiovascular Exam: +S1, +S2 - GI/Abdominal Exam GI & Abdominal Exam: Normal Bowel Sounds - Extremities Exam Extremities Exam: Pedal Edema - Neurological Exam Neurological Exam: Oriented x3 - Psychiatric Exam Psychiatric exam: Normal Affect, Normal Mood - Skin Skin Exam: Warm Assessment and Plan (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
[2017-11-25] MEDS: Magnesium Hydroxide Susp 30 ml UD PO PRN (20:22)
[2017-11-25] MEDS ORDERED: Labetalol 5 mg/ml Inj 20ML IVP STA ×2 (21:14→23:05)
[2017-11-25] MEDS: Insulin Regular 100 units/ml SC SCH (22:25)
[2017-11-26 03:16] LABS: ABG ALLEN TEST YES; ARTERIAL BLOOD GAS HCO3 25.8 mmol/L (21-28); ARTERIAL BLOOD GAS HEMOGLOBIN 11.6 g/dL (11.7-17.4); ARTERIAL BLOOD GAS O2 CAPACITY 16.1 mL/dL (16-24); ARTERIAL BLOOD GAS O2 CONTENT 15.5 ML/dL (15-23); ARTERIAL BLOOD GAS O2 SAT 96.5 % (95-98); ARTERIAL BLOOD GAS PCO2 36 mm/Hg (35-45); ARTERIAL BLOOD GAS PH 7.45 (7.35-7.45); ARTERIAL BLOOD GAS PO2 74 mm/Hg (80-100); ARTERIAL BLOOD GAS TCO2 26.1 mmol/L (22-28)
[2017-11-26] MEDS: Dexamethasone 4 mg/1 ml IV SCH ×4 (03:36→22:30)
[2017-11-26] MEDS: Piperacillin/Tazobact 3.375 GM in Sodium Chloride 0.9% 100 ML IVPB SCH ×4 (04:00→22:32)
[2017-11-26 06:59] LABS: HEMOGLOBIN 10.6 g/dL (12.0-16.0); MEAN CELL VOLUME 95.2 fl (81.0-99.0); MEAN CORPUSCULAR HEMOGLOBIN 31.2 pg (27.0-31.0); MEAN CORPUSCULAR HGB CONC 32.7 g/dL (33.0-37.0); RBC 3.4 Mil/uL (3.80-5.20); RED CELL DISTRIBUTION WIDTH 15.7 % (11.5-14.5); WHITE BLOOD COUNT 7.6 K/uL (4.8-10.8)
[2017-11-26 07:07] LABS: ALBUMIN 3.1 g/dL (3.5-5.0); ALT/SGPT 29 U/L (9-52); AST/SGOT 22 U/L (14-36); BLOOD UREA NITROGEN 18 mg/dl (7-17); CALCIUM 9.7 mg/dL (8.4-10.2); GFR AFRICAN-AMERICAN > 60; GFR NON-AFRICAN AMERICAN 53
[2017-11-26] MEDS: Levothyroxine 100 mcg (0.1 mg) Inj IVP SCH (08:09)
--- NOTE | 2017-11-26 09:16 | PN ---
DATE: 11/26/2017 SUBJECTIVE: The patient is seen and examined. Interim events noted. Consults noted and appreciated. The patient remains in Intensive Care Unit. Sleepy, arousable. Feels okay. Denies any specific complaint of chest pain or shortness of breath. PHYSICAL EXAMINATION: GENERAL: The patient is in no acute distress. VITAL SIGNS: Stable. HEART: S1 and S2, normal and regular. LUNGS: Good bilateral air entry. ABDOMEN: Soft, nontender. EXTREMITIES: No calf swelling. No tenderness. No acute ischemia. CENTRAL NERVOUS SYSTEM: Essentially unchanged. DIAGNOSTIC DATA: Available diagnostic data reviewed. Telemetry monitoring does not reveal significant arrhythmias. ASSESSMENT AND PLAN: Case discussed with real estate services coordinator. Neurosurgery and real estate services coordinator's interventions noted and appreciated. The patient is tentatively scheduled for surgery on Monday. Plan as ordered. Case and plan discussed with the patient and the patient's daughter at length at bedside. The patient's record from other hospital reviewed and discussed with the patient's family also. Pedro Snyder MD
[2017-11-26] MEDS: Insulin Regular 100 units/ml SC SCH ×4 (10:03→21:57)
--- NOTE | 2017-11-26 10:24 | CP.CCUPN ---
CCU Subjective - Physician Review Events Since Last Encounter (Free Text): 11/26/17 10:21 alert and oriented, no pain, no headache, stable CCU Objective - Vital Signs / Intake & Output Intake and Output (Last 8hrs): Intake & Output 11/25/17 11/26/17 11/26/17 22:59 06:59 14:59 Intake Total 75 Balance 75 Weight 195 lb Intake: IV 75 - Physical Exam Narrative Physical Exam (Free Text): 11/26/17 10:22 P/E Neck: No JVD Lungs: No ronchi, crackles Abdomen: soft , non-tender Ext: no edema Heart; no gallop Head: Positive for: Atraumatic, Normocephalic. Negative for: Tenderness, Contusion, Swelling Pupils: Positive for: PERRL. Negative for: Sluggish, Non-Reactive Conjunctiva: Positive for: Normal. Negative for: Injected, Icteric Mouth: Positive for: Moist Mucous Membranes Nose (Internal): Positive for: Normal Inspection Neck: Positive for: Normal Range of Motion, Trachea Midline. Negative for: Meningeal Signs, MIDLINE TENDERNESS, Paraspinal Tenderness, JVD, Lymphadenopathy , Bruit, Other Respiratory/Chest: Positive for: Good Air Exchange, Decreased Breath Sounds ( Left side), Rhonchi. Negative for: Respiratory Distress, Accessory Muscle Use, Wheezes, Rales, Retracting Cardiovascular: Positive for: Regular Rate and Rhythm, Normal S1, S2, Peripheal Pulses Present. Negative for: Murmurs, Irregular Rhythm, Tachycardic, Bradycardic Upper Extremity: Positive for: Normal Inspection, NORMAL PULSES, Capillary Refill < 2s. Negative for: Cyanosis, Edema Lower Extremity: Positive for: Normal Inspection, NORMAL PULSES, Capillary Refill < 2 s. Negative for: Edema, CALF TENDERNESS - Medications Active Medications: Active Medications Generic Name Dose Route Start Last Admin Trade Name Freq PRN Reason Stop Dose Admin Acetaminophen 650 mg 11/25/17 02:54 11/25/17 03:02 Tylenol 325mg Tab PO 650 mg Q4 PRN Administration Headache Dexamethasone 4 mg 11/24/17 16:00 11/26/17 09:45 Decadron Inj IV 4 mg Q6 MARY ANN Administration Piperacillin Sod/Tazobactam 100 mls @ 100 mls/hr 11/24/17 10:00 11/26/17 09: 46 Sod 3.375 gm/ Sodium Chloride IVPB 100 mls/hr Q6 MARY ANN Administration Protocol Vancomycin HCl 750 mg/ Sodium 250 mls @ 166.667 mls/hr 11/24/17 08:30 20:35 Chloride IVPB 166.667 mls/hr Q12H MARY ANN Administration Protocol Mannitol 100 mls @ 100 mls/hr 11/25/17 20:30 11/26/17 08:07 Mannitol IVPB 100 mls/hr Q6H MARY ANN Administration Insulin Human Regular 0 units 11/25/17 22:00 11/26/17 10:03 Humulin R SC Not Given ACHS MARY ANN Protocol Levothyroxine Sodium 60 mcg 11/25/17 09:00 11/26/17 08:09 Synthroid IVP 60 mcg DAILY MARY ANN Administration Magnesium Hydroxide 15 ml 11/25/17 20:08 11/25/17 20:22 Milk Of Magnesia PO 15 ml QID PRN Administration Constipation Pantoprazole Sodium 40 mg 11/24/17 09:00 11/26/17 08:08 Protonix Inj IVP 40 mg DAILY MARY ANN Administration - Patient Studies Lab Studies: Lab Studies 11/26/17 11/26/17 11/26/17 Range/Units 06:00 06:00 05:51 WBC 7.6 D (4.8-10.8) K/uL RBC 3.40 L (3.80-5.20) Mil/uL Hgb 10.6 L (12.0-16.0) g/dL Hct 32.4 L (34.0-47.0) % MCV 95.2 (81.0-99.0) fl MCH 31.2 H (27.0-31.0) pg MCHC 32.7 L (33.0-37.0) g/dL RDW 15.7 H (11.5-14.5) % Plt Count 201 (130-400) K/uL pCO2 (35-45) mm/Hg pO2 (80-100) mm/Hg HCO3 (21-28) mmol/L ABG pH (7.35-7.45) ABG Total CO2 (22-28) mmol/L ABG O2 Saturation (95-98) % ABG O2 Content (15-23) ML/dL ABG Base Excess (-2.0-3.0) mmol/L ABG Hemoglobin (11.7-17.4) g/dL ABG Carboxyhemoglobin (0.5-1.5) % POC ABG HHb (Measured) (0.0-5.0) % ABG Methemoglobin (0.0-3.0) % ABG O2 Capacity (16-24) mL/dL Osito Test A-a O2 Difference mm/Hg Hgb O2 Saturation (95.0-98.0) % Vent Mode FiO2 % Sodium 134 (132-148) mmol/l Potassium 4.4 (3.6-5.0) MMOL/L Chloride 102 (98-107) mmol/L Carbon Dioxide 27 (22-30) mmol/L Anion Gap 9 L (10-20) BUN 18 H (7-17) mg/dl Creatinine 1.0 (0.7-1.2) mg/dl Est GFR ( Amer) > 60 Est GFR (Non-Af Amer) 53 POC Glucose (mg/dL) 278 H (65-110) mg/dL Random Glucose 295 H (65-105) mg/dL Calcium 9.7 (8.4-10.2) mg/dL Total Bilirubin 0.3 (0.2-1.3) mg/dl AST 22 (14-36) U/L ALT 29 (9-52) U/L Alkaline Phosphatase 81 (38-126) U/L Total Protein 6.4 (6.3-8.2) G/DL Albumin 3.1 L (3.5-5.0) g/dL Globulin 3.2 (2.2-3.9) gm/dL Albumin/Globulin Ratio 1.0 (1.0-2.1) 11/26/17 11/25/17 11/25/17 Range/Units 03:05 20:23 11:22 WBC (4.8-10.8) K/uL RBC (3.80-5.20) Mil/uL Hgb (12.0-16.0) g/dL Hct (34.0-47.0) % MCV (81.0-99.0) fl MCH (27.0-31.0) pg MCHC (33.0-37.0) g/dL RDW (11.5-14.5) % Plt Count (130-400) K/uL pCO2 36 (35-45) mm/Hg pO2 74 L (80-100) mm/Hg HCO3 25.8 (21-28) mmol/L ABG pH 7.45 (7.35-7.45) ABG Total CO2 26.1 (22-28) mmol/L ABG O2 Saturation 96.5 (95-98) % ABG O2 Content 15.5 (15-23) ML/dL ABG Base Excess 1.2 (-2.0-3.0) mmol/L ABG Hemoglobin 11.6 L (11.7-17.4) g/dL ABG Carboxyhemoglobin 1.0 (0.5-1.5) % POC ABG HHb (Measured) 3.4 (0.0-5.0) % ABG Methemoglobin 1.2 (0.0-3.0) % ABG O2 Capacity 16.1 (16-24) mL/dL Osito Test Yes A-a O2 Difference 138.0 mm/Hg Hgb O2 Saturation 94.4 L (95.0-98.0) % Vent Mode 4l nc FiO2 36.0 % Sodium (132-148) mmol/l Potassium (3.6-5.0) MMOL/L Chloride (98-107) mmol/L Carbon Dioxide (22-30) mmol/L Anion Gap (10-20) BUN (7-17) mg/dl Creatinine (0.7-1.2) mg/dl Est GFR ( Amer) Est GFR (Non-Af Amer) POC Glucose (mg/dL) 322 H 200 H (65-110) mg/dL Random Glucose (65-105) mg/dL Calcium (8.4-10.2) mg/dL Total Bilirubin (0.2-1.3) mg/dl AST (14-36) U/L ALT (9-52) U/L Alkaline Phosphatase (38-126) U/L Total Protein (6.3-8.2) G/DL Albumin (3.5-5.0) g/dL Globulin (2.2-3.9) gm/dL Albumin/Globulin Ratio (1.0-2.1) Laboratory Results - last 24 hr 11/25/17 11/25/17 11/26/17 11:22 20:23 03:05 WBC RBC Hgb Hct MCV MCH MCHC RDW Plt Count pCO2 36 pO2 74 L HCO3 25.8 ABG pH 7.45 ABG Total CO2 26.1 ABG O2 Saturation 96.5 ABG O2 Content 15.5 ABG Base Excess 1.2 ABG Hemoglobin 11.6 L ABG Carboxyhemoglobin 1.0 POC ABG HHb (Measured) 3.4 ABG Methemoglobin 1.2 ABG O2 Capacity 16.1 Osito Test Yes A-a O2 Difference 138.0 Hgb O2 Saturation 94.4 L Vent Mode 4l nc FiO2 36.0 Sodium Potassium Chloride Carbon Dioxide Anion Gap BUN Creatinine Est GFR ( Amer) Est GFR (Non-Af Amer) POC Glucose (mg/dL) 200 H 322 H Random Glucose Calcium Total Bilirubin AST ALT Alkaline Phosphatase Total Protein Albumin Globulin Albumin/Globulin Ratio 11/26/17 11/26/17 11/26/17 05:51 06:00 06:00 WBC 7.6 D RBC 3.40 L Hgb 10.6 L Hct 32.4 L MCV 95.2 MCH 31.2 H MCHC 32.7 L RDW 15.7 H Plt Count 201 pCO2 pO2 HCO3 ABG pH ABG Total CO2 ABG O2 Saturation ABG O2 Content ABG Base Excess ABG Hemoglobin ABG Carboxyhemoglobin POC ABG HHb (Measured) ABG Methemoglobin ABG O2 Capacity Osito Test A-a O2 Difference Hgb O2 Saturation Vent Mode FiO2 Sodium 134 Potassium 4.4 Chloride 102 Carbon Dioxide 27 Anion Gap 9 L BUN 18 H Creatinine 1.0 Est GFR ( Amer) > 60 Est GFR (Non-Af Amer) 53 POC Glucose (mg/dL) 278 H Random Glucose 295 H Calcium 9.7 Total Bilirubin 0.3 AST 22 ALT 29 Alkaline Phosphatase 81 Total Protein 6.4 Albumin 3.1 L Globulin 3.2 Albumin/Globulin Ratio 1.0 Fingerstick Blood Sugar Results: 278 Critical Care Progress Note - Nutrition Nutrition: Nutrition Category Date Time Status Consistent Carbohydrate [DIET] Diets 11/25/17 Breakfast Active Assessment/Plan - Assessment and Plan (Free Text) Assessment: Assessment/Plan: 11/26/17 (1) Bleeding in brain Current Visit: Yes Status: Acute Priority: High Comment: Hemorrhagic Brain Metastasis Neurology & Neuro surgeon Consulted, suggested surgical intervension, it will be done on Tuesday 11/28 On manitol Neurology following Card clearnce bein done, Echo just completed. ECHO ordered for pre-op evaluation Swallow Eval DVT prophylaxis with SCD (2) CAP (community acquired pneumonia) Current Visit: Yes Status: Acute Comment: Patient had CXR and chest CT scan comparable with post-obstructive pneumonia, on IV Vanco and Zosyn (3) Stage 4 malignant neoplasm of lung Current Visit: Yes Status: Acute Priority: High Comment: Patient refused Chemo, received short course of Radiotherapy for 4 cycles then could not tolerate further. 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
--- NOTE | 2017-11-26 11:33 | CP.PCM.PN ---
Subjective - Date & Time of Evaluation Date of Evaluation: 11/26/17 Time of Evaluation: 11:30 - Subjective Subjective: spoke again at length with pt and family re surgery went over rationale,procedure,potential risks,recovery etc seem to be leaning towards procedure hopefully will make definitive decision tmw tentatively scheduled for Tues Objective - Vital Signs/Intake and Output Vital Signs (last 24 hours): Temp Pulse Resp BP Pulse Ox 98.8 F 68 13 117/70 96 11/26/17 04:00 11/26/17 06:00 11/26/17 06:00 11/26/17 06:00 11/26/17 06:00 Intake and Output: 11/26/17 11/26/17 06:59 18:59 Intake Total 75 Balance 75 - Medications Medications: Current Medications Acetaminophen (Tylenol 325mg Tab) 650 mg PO Q4 PRN PRN Reason: Headache Last Admin: 11/25/17 03:02 Dose: 650 mg Dexamethasone (Decadron Inj) 4 mg IV Q6 MARY ANN Last Admin: 11/26/17 09:45 Dose: 4 mg Piperacillin Sod/Tazobactam (Sod 3.375 gm/ Sodium Chloride) 100 mls @ 100 mls/ hr IVPB Q6 MARY ANN PRN Reason: Protocol Last Admin: 11/26/17 09:46 Dose: 100 mls/hr Vancomycin HCl 750 mg/ Sodium (Chloride) 250 mls @ 166.667 mls/hr IVPB Q12H MARY ANN PRN Reason: Protocol Last Admin: 11/25/17 20:35 Dose: 166.667 mls/hr Mannitol (Mannitol) 100 mls @ 100 mls/hr IVPB Q6H MARY ANN Last Admin: 11/26/17 08:07 Dose: 100 mls/hr Insulin Human Regular (Humulin R) 0 units SC ACHS MARY ANN PRN Reason: Protocol Last Admin: 11/26/17 10:03 Dose: Not Given Levothyroxine Sodium (Synthroid) 60 mcg IVP DAILY [facility] Last Admin: 11/26/17 08:09 Dose: 60 mcg Magnesium Hydroxide (Milk Of Magnesia) 15 ml PO QID PRN PRN Reason: Constipation Last Admin: 11/25/17 20:22 Dose: 15 ml Pantoprazole Sodium (Protonix Inj) 40 mg IVP DAILY [facility] Last Admin: 11/26/17 08:08 Dose: 40 mg - Labs Labs: 11/26/17 06:00 11/26/17 06:00 PT 11.4 Seconds (9.8-13.1) 11/23/17 23:10 INR 1.0 (0.9-1.2) 11/23/17 23:10 APTT 30.2 Seconds (25.6-37.1) 11/23/17 23:10
--- NOTE | 2017-11-26 13:57 | RAD ---
HISTORY: SOB COMPARISON: 11/23/2017 FINDINGS: LUNGS: No definite infiltrate. Right lung is partially obscured however, by dependent pleural effusion. PLEURA: Moderate right pleural effusion with apical pleural capping. Fluid in minor fissure. No left pleural effusion. No pneumothorax. CARDIOVASCULAR: Right PICC catheter terminates in the region of the superior vena cava. Normal heart size. No congestive change. OSSEOUS STRUCTURES: No significant abnormalities. VISUALIZED UPPER ABDOMEN: Normal. OTHER FINDINGS: None. IMPRESSION: Right pleural effusion. Likely fluid within minor fissure. No definite infiltrate.
--- NOTE | 2017-11-26 15:05 | CP.PCM.PN ---
Subjective - Date & Time of Evaluation Date of Evaluation: 11/26/17 Time of Evaluation: 14:00 - Subjective Subjective: Feels tired Objective - Vital Signs/Intake and Output Vital Signs (last 24 hours): Temp Pulse Resp BP Pulse Ox 97.9 F 72 18 127/51 L 96 11/26/17 12:00 11/26/17 14:00 11/26/17 14:00 11/26/17 12:00 11/26/17 14:00 Intake and Output: 11/26/17 11/26/17 06:59 18:59 Intake Total 75 Balance 75 - Medications Medications: Current Medications Acetaminophen (Tylenol 325mg Tab) 650 mg PO Q4 PRN PRN Reason: Headache Last Admin: 11/25/17 03:02 Dose: 650 mg Dexamethasone (Decadron Inj) 4 mg IV Q6 MARY ANN Last Admin: 11/26/17 09:45 Dose: 4 mg Piperacillin Sod/Tazobactam (Sod 3.375 gm/ Sodium Chloride) 100 mls @ 100 mls/ hr IVPB Q6 MARY ANN PRN Reason: Protocol Last Admin: 11/26/17 09:46 Dose: 100 mls/hr Vancomycin HCl 750 mg/ Sodium (Chloride) 250 mls @ 166.667 mls/hr IVPB Q12H MARY ANN PRN Reason: Protocol Last Admin: 11/26/17 11:59 Dose: 166.667 mls/hr Mannitol (Mannitol) 100 mls @ 100 mls/hr IVPB Q6H MARY ANN Last Admin: 11/26/17 08:07 Dose: 100 mls/hr Insulin Human Regular (Humulin R) 0 units SC ACHS MARY ANN PRN Reason: Protocol Last Admin: 11/26/17 12:18 Dose: Not Given Levothyroxine Sodium (Synthroid) 60 mcg IVP DAILY [facility] Last Admin: 11/26/17 08:09 Dose: 60 mcg Magnesium Hydroxide (Milk Of Magnesia) 15 ml PO QID PRN PRN Reason: Constipation Last Admin: 11/25/17 20:22 Dose: 15 ml Pantoprazole Sodium (Protonix Inj) 40 mg IVP DAILY [facility] Last Admin: 11/26/17 08:08 Dose: 40 mg - Labs Labs: 11/26/17 06:00 11/26/17 06:00 PT 11.4 Seconds (9.8-13.1) 11/23/17 23:10 INR 1.0 (0.9-1.2) 11/23/17 23:10 APTT 30.2 Seconds (25.6-37.1) 11/23/17 23:10 - Head Exam Head Exam: ATRAUMATIC - Eye Exam Eye Exam: Normal appearance - ENT Exam ENT Exam: Mucous Membranes Dry - Respiratory Exam Respiratory Exam: NORMAL BREATHING PATTERN - Cardiovascular Exam Cardiovascular Exam: +S1, +S2 - GI/Abdominal Exam GI & Abdominal Exam: Normal Bowel Sounds Assessment and Plan (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
--- NOTE | 2017-11-26 15:22 | PN ---
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 PHYSICAL EXAMINATION: VITAL SIGNS: Blood pressure 127/51, mean arterial pressure of 76, respiratory rate 16, temperature afebrile. NEUROLOGIC: Patient is more awake, alert. Mentation is normal. Left side hemiparesis with strength of 4-/5 and left homonymous hemianopia also noted. Patient has decided to go for debulking on Monday as per the recommendation from neurosurgeon. Since the solitary met in nondominant hemisphere, I also totally agree with craniotomy for excision of the mass. In the meantime, continue the present medication. Patient will be followed closely while she is in the hospital. Nasir Bellamy MD
[2017-11-27] MEDS: Dexamethasone 4 mg/1 ml IV SCH ×4 (03:39→21:43)
[2017-11-27] MEDS: Piperacillin/Tazobact 3.375 GM in Sodium Chloride 0.9% 100 ML IVPB SCH ×4 (03:40→21:44)
[2017-11-27 05:42] LABS: HEMOGLOBIN 10.9 g/dL (12.0-16.0); MEAN CORPUSCULAR HEMOGLOBIN 31.3 pg (27.0-31.0); MEAN CORPUSCULAR HGB CONC 33.3 g/dL (33.0-37.0); RBC 3.49 Mil/uL (3.80-5.20); RED CELL DISTRIBUTION WIDTH 15.6 % (11.5-14.5); WHITE BLOOD COUNT 6.2 K/uL (4.8-10.8)
[2017-11-27 06:08] LABS: ALB/GLOB RATIO 0.9 (1.0-2.1); ALBUMIN 3.2 g/dL (3.5-5.0); ALT/SGPT 31 U/L (9-52); AST/SGOT 27 U/L (14-36); BLOOD UREA NITROGEN 19 mg/dl (7-17); CALCIUM 10.3 mg/dL (8.4-10.2); GFR AFRICAN-AMERICAN > 60; GFR NON-AFRICAN AMERICAN > 60
[2017-11-27] MEDS: Insulin Regular 100 units/ml SC SCH ×4 (06:57→22:06)
[2017-11-27] MEDS: Levothyroxine 100 mcg (0.1 mg) Inj IVP SCH (09:19)
--- NOTE | 2017-11-27 09:40 | CP.PCM.PN ---
Subjective - Date & Time of Evaluation Date of Evaluation: 11/27/17 Time of Evaluation: 09:40 - Subjective Subjective: NO NEW PULMONARY FINDINGS NO CHEST PAINS/SOB AWAKE/ALERT AND ORIENTED REFUSES CHEMOTHERAPY CONSIDERING NEUROSURGICAL INTERVENTION FOR AM WILL CONTINUE TO FOLLOW Objective - Vital Signs/Intake and Output Vital Signs (last 24 hours): Temp Pulse Resp BP Pulse Ox 97.8 F 67 17 144/80 98 11/27/17 08:00 11/27/17 08:00 11/27/17 08:00 11/27/17 08:00 11/27/17 08:00 Intake and Output: 11/27/17 11/27/17 06:59 18:59 Intake Total 100 Output Total 700 Balance -600 - Medications Medications: Current Medications Acetaminophen (Tylenol 325mg Tab) 650 mg PO Q4 PRN PRN Reason: Headache Last Admin: 11/25/17 03:02 Dose: 650 mg Dexamethasone (Decadron Inj) 4 mg IV Q6 [facility] Last Admin: 11/27/17 09:22 Dose: 4 mg Piperacillin Sod/Tazobactam (Sod 3.375 gm/ Sodium Chloride) 100 mls @ 100 mls/ hr IVPB Q6 MARY ANN PRN Reason: Protocol Last Admin: 11/27/17 03:40 Dose: 100 mls/hr Vancomycin HCl 750 mg/ Sodium (Chloride) 250 mls @ 166.667 mls/hr IVPB Q12H MARY ANN PRN Reason: Protocol Last Admin: 11/26/17 21:16 Dose: 166.667 mls/hr Mannitol (Mannitol) 100 mls @ 100 mls/hr IVPB Q6H [facility] Last Admin: 11/27/17 04:27 Dose: 100 mls/hr Insulin Human Regular (Humulin R) 0 units SC ACHS MARY ANN PRN Reason: Protocol Last Admin: 11/27/17 06:57 Dose: 2 units Levothyroxine Sodium (Synthroid) 60 mcg IVP DAILY [facility] Last Admin: 11/27/17 09:19 Dose: 60 mcg Magnesium Hydroxide (Milk Of Magnesia) 15 ml PO QID PRN PRN Reason: Constipation Last Admin: 11/25/17 20:22 Dose: 15 ml Pantoprazole Sodium (Protonix Inj) 40 mg IVP DAILY [facility] Last Admin: 11/27/17 09:16 Dose: 40 mg - Labs Labs: 11/27/17 04:30 11/27/17 04:30 PT 11.4 Seconds (9.8-13.1) 11/23/17 23:10 INR 1.0 (0.9-1.2) 11/23/17 23:10 APTT 30.2 Seconds (25.6-37.1) 11/23/17 23:10
--- NOTE | 2017-11-27 13:13 | VASCULAR ---
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 PROCEDURE: 1. Focused ultrasound of the right upper extremity vasculature. 2. Ultrasound-guided access. 3. Insertion of peripherally inserted central venous catheter. 4. Fluoroscopic localization of catheter tip. PRE-PROCEDURE FINDINGS: 1. Patent right basilic vein. POST-PROCEDURE FINDINGS: 1. Placement of 5 Vietnamese double-lumen PICC. 2. Catheter length: 40 cm. 3. Catheter tip at cavoatrial junction. INTERVENTIONAL RADIOLOGIST: Fabien Reilly M.D. (the attending was present for the entire procedure) ANESTHESIA: None. MEDICATION: Lidocaine 1% for local subcutaneous analgesia. COMPLICATIONS: None. RADIATION DOSE: Fluoroscopy Time: 101 seconds Cumulative Dose: 22.2 mGy PROCEDURE DESCRIPTION AND FINDINGS: The risks, benefits, alternatives and possible complications of the procedure were fully discussed; all questions were answered and informed consent was obtained. The patient was brought into the interventional suite and a pre-procedure 'time-out' was performed. The patient was placed on the fluoroscopy table in the supine position. The right upper extremity was prepped and draped in the usual sterile fashion. Maximum sterile barrier precautions were maintained throughout the entire procedure. Preliminary ultrasound images of the right upper extremity vasculature demonstrate patency of the right basilic vein. Following subcutaneous infiltration of 1% lidocaine for local analgesia, under ultrasound guidance, a 21-gauge needle was advanced into the right basilic vein with real-time visualization of needle entry. The ultrasound images were permanently recorded and submitted to the PACS. A 0.018 guidewire was advanced centrally to the cavoatrial junction. A 5.5 Vietnamese peel-away sheath was advanced over the guidewire. After obtaining length measurement, a 5 Vietnamese double-lumen PICC was placed with the tip of the catheter at the cavoatrial junction. The total length of the catheter is 40 cm. The hub of the PICC was secured to the skin using a sterile adhesive bandage. The patient tolerated the procedure well without immediate post-procedure complications and was transferred back to the floor in stable condition. IMPRESSION: SUCCESSFUL INSERTION OF RIGHT UPPER EXTREMITY PICC. PICC OK TO USE.
--- NOTE | 2017-11-27 13:58 | PN ---
DATE: 11/27/2017 SUBJECTIVE: Patient seen and examined. Interim events noted. Consults noted and appreciated. Case was discussed with ladle liner. Patient is awake and responsive. Feels okay. Denies any pain, shortness of breath or headache. Complains of generalized weakness. PHYSICAL EXAMINATION: GENERAL: The patient is in no acute distress. VITAL SIGNS: Stable. HEART: S1 and S2 normal and regular. LUNGS: Good bilateral air exchange. ABDOMEN: Soft and nontender. EXTREMITIES: No edema. No calf swelling. No tenderness. No acute ischemia. CENTRAL NERVOUS SYSTEM: Essentially unchanged. DIAGNOSTIC DATA: Available diagnostic data reviewed. Telemetry monitoring does not reveal significant arrhythmias. ASSESSMENT AND PLAN: Overall, the patient's general medical condition is hemodynamically stable, although long-term prognosis remains poor due to stage IV lung cancer . Case and plan discussed with the patient and the patient's daughter at length at bedside. Pedro Snyder MD
--- NOTE | 2017-11-27 14:33 | CP.CCUPN ---
CCU Subjective - Physician Review Subjective (Free Text): Patient seen and examined at bedside. Patient with long history of smoking dx with metastatic cancer 11/27/17 14:31 CCU Objective - Vital Signs / Intake & Output Vital Signs (Last 4 hours): Vital Signs Temp Pulse Resp BP Pulse Ox 11/27/17 12:00 97.3 F L 73 18 159/87 H 97 Intake and Output (Last 8hrs): Intake & Output 11/26/17 11/27/17 11/27/17 22:59 06:59 14:59 Intake Total 200 Output Total 1450 Balance -1250 Intake: Intake, Piggyback 200 Output: Urine 1450 Urethral (Baker) 1450 - Physical Exam Head: Positive for: Atraumatic, Normocephalic. Negative for: Tenderness, Contusion, Swelling Pupils: Positive for: PERRL. Negative for: Sluggish, Non-Reactive Conjunctiva: Positive for: Normal. Negative for: Injected, Icteric Mouth: Positive for: Moist Mucous Membranes Nose (Internal): Positive for: Normal Inspection Neck: Positive for: Normal Range of Motion, Trachea Midline. Negative for: Meningeal Signs, MIDLINE TENDERNESS, Paraspinal Tenderness, JVD, Lymphadenopathy , Bruit, Other Respiratory/Chest: Positive for: Good Air Exchange, Decreased Breath Sounds ( right side), Rhonchi. Negative for: Respiratory Distress, Accessory Muscle Use , Wheezes, Rales, Retracting Cardiovascular: Positive for: Regular Rate and Rhythm, Normal S1, S2, Peripheal Pulses Present. Negative for: Murmurs, Irregular Rhythm, Tachycardic, Bradycardic Upper Extremity: Positive for: Normal Inspection, NORMAL PULSES, Capillary Refill < 2s. Negative for: Cyanosis, Edema Lower Extremity: Positive for: Normal Inspection, NORMAL PULSES, Capillary Refill < 2 s. Negative for: Edema, CALF TENDERNESS - Medications Active Medications: Active Medications Generic Name Dose Route Start Last Admin Trade Name Freq PRN Reason Stop Dose Admin Acetaminophen 650 mg 11/25/17 02:54 11/25/17 03:02 Tylenol 325mg Tab PO 650 mg Q4 PRN Administration Headache Dexamethasone 4 mg 11/24/17 16:00 11/27/17 09:22 Decadron Inj IV 4 mg Q6 MARY ANN Administration Piperacillin Sod/Tazobactam 100 mls @ 100 mls/hr 11/24/17 10:00 11/27/17 10: 25 Sod 3.375 gm/ Sodium Chloride IVPB 100 mls/hr Q6 MARY ANN Administration Protocol Vancomycin HCl 750 mg/ Sodium 250 mls @ 166.667 mls/hr 11/24/17 08:30 12:10 Chloride IVPB 166.667 mls/hr Q12H MARY ANN Administration Protocol Mannitol 100 mls @ 100 mls/hr 11/25/17 20:30 11/27/17 11:03 Mannitol IVPB 100 mls/hr Q6H MARY ANN Administration Insulin Human Regular 0 units 11/25/17 22:00 11/27/17 11:57 Humulin R SC 3 units ACHS MARY ANN Administration Protocol Levothyroxine Sodium 60 mcg 11/25/17 09:00 11/27/17 09:19 Synthroid IVP 60 mcg DAILY MARY ANN Administration Magnesium Hydroxide 15 ml 11/25/17 20:08 11/25/17 20:22 Milk Of Magnesia PO 15 ml QID PRN Administration Constipation Pantoprazole Sodium 40 mg 11/24/17 09:00 11/27/17 09:16 Protonix Inj IVP 40 mg DAILY MARY ANN Administration - Patient Studies Lab Studies: Microbiology Studies 11/24/17 10:00 MRSA Culture (Admit) - Final Naris MRSA NOT DETECTED Lab Studies 11/27/17 11/27/17 11/27/17 Range/Units 11:31 06:51 04:30 WBC (4.8-10.8) K/uL RBC (3.80-5.20) Mil/uL Hgb (12.0-16.0) g/dL Hct (34.0-47.0) % MCV (81.0-99.0) fl MCH (27.0-31.0) pg MCHC (33.0-37.0) g/dL RDW (11.5-14.5) % Plt Count (130-400) K/uL Sodium 133 (132-148) mmol/l Potassium 4.4 (3.6-5.0) MMOL/L Chloride 100 (98-107) mmol/L Carbon Dioxide 27 (22-30) mmol/L Anion Gap 10 (10-20) BUN 19 H (7-17) mg/dl Creatinine 0.9 (0.7-1.2) mg/dl Est GFR ( Amer) > 60 Est GFR (Non-Af Amer) > 60 POC Glucose (mg/dL) 264 H 227 H (65-110) mg/dL Random Glucose 258 H (65-105) mg/dL Calcium 10.3 H (8.4-10.2) mg/dL Total Bilirubin 0.5 (0.2-1.3) mg/dl AST 27 (14-36) U/L ALT 31 (9-52) U/L Alkaline Phosphatase 81 (38-126) U/L Total Protein 6.7 (6.3-8.2) G/DL Albumin 3.2 L (3.5-5.0) g/dL Globulin 3.4 (2.2-3.9) gm/dL Albumin/Globulin Ratio 0.9 L (1.0-2.1) 11/27/17 11/26/17 11/26/17 Range/Units 04:30 21:31 16:13 WBC 6.2 (4.8-10.8) K/uL RBC 3.49 L (3.80-5.20) Mil/uL Hgb 10.9 L (12.0-16.0) g/dL Hct 32.8 L (34.0-47.0) % MCV 94.0 (81.0-99.0) fl MCH 31.3 H (27.0-31.0) pg MCHC 33.3 (33.0-37.0) g/dL RDW 15.6 H (11.5-14.5) % Plt Count 238 (130-400) K/uL Sodium (132-148) mmol/l Potassium (3.6-5.0) MMOL/L Chloride (98-107) mmol/L Carbon Dioxide (22-30) mmol/L Anion Gap (10-20) BUN (7-17) mg/dl Creatinine (0.7-1.2) mg/dl Est GFR ( Amer) Est GFR (Non-Af Amer) POC Glucose (mg/dL) 262 H 272 H (65-110) mg/dL Random Glucose (65-105) mg/dL Calcium (8.4-10.2) mg/dL Total Bilirubin (0.2-1.3) mg/dl AST (14-36) U/L ALT (9-52) U/L Alkaline Phosphatase (38-126) U/L Total Protein (6.3-8.2) G/DL Albumin (3.5-5.0) g/dL Globulin (2.2-3.9) gm/dL Albumin/Globulin Ratio (1.0-2.1) Laboratory Results - last 24 hr 11/26/17 11/26/17 11/27/17 16:13 21:31 04:30 WBC 6.2 RBC 3.49 L Hgb 10.9 L Hct 32.8 L MCV 94.0 MCH 31.3 H MCHC 33.3 RDW 15.6 H Plt Count 238 Sodium Potassium Chloride Carbon Dioxide Anion Gap BUN Creatinine Est GFR ( Amer) Est GFR (Non-Af Amer) POC Glucose (mg/dL) 272 H 262 H Random Glucose Calcium Total Bilirubin AST ALT Alkaline Phosphatase Total Protein Albumin Globulin Albumin/Globulin Ratio 11/27/17 11/27/17 11/27/17 04:30 06:51 11:31 WBC RBC Hgb Hct MCV MCH MCHC RDW Plt Count Sodium 133 Potassium 4.4 Chloride 100 Carbon Dioxide 27 Anion Gap 10 BUN 19 H Creatinine 0.9 Est GFR ( Amer) > 60 Est GFR (Non-Af Amer) > 60 POC Glucose (mg/dL) 227 H 264 H Random Glucose 258 H Calcium 10.3 H Total Bilirubin 0.5 AST 27 ALT 31 Alkaline Phosphatase 81 Total Protein 6.7 Albumin 3.2 L Globulin 3.4 Albumin/Globulin Ratio 0.9 L Fingerstick Blood Sugar Results: 264 Critical Care Progress Note - Nutrition Nutrition: Nutrition Category Date Time Status Consistent Carbohydrate [DIET] Diets 11/25/17 Breakfast Active Assessment/Plan - Assessment and Plan (Free Text) Plan: 82 y/o female with pmx of smoking (35 years), dx with metastatic cancer with right pleural effusion [facility] fall. -ICH: stable, no neurological sympotoms, avoid antiplatelts, AC, keep SBP <140, awaiting neurosurgery internvention, keep HOB >30, on dexa and mannitol for perihemorrhagic edema, keppra 500 mg q12hrs seizure prophylzxis -empirically on vanco/zosyn, if no source of infection identified, consider de- escalating off abx -monitor BGM and contienu ISS AC/HS -avoid hypotonic fluids -avoid sedation -possible surgical intervention in AM -NPO post mignight Patient remains hemodynamically stable - Date & Time Date: 11/27/17 Time: 14:39
[2017-11-27] MEDS ORDERED: Nicardipine 20 MG/200 ML 20 MG/200 ML BAG IV ONE (14:41)
[2017-11-27] MEDS: Mannitol 12.5 gm/50 ml Inj IV SCH ×2 (16:27→21:43)
[2017-11-27] MEDS: levETIRAcetam 500 MG in Sodium Chloride 0.9% 100 ML IVPB SCH (20:54)
--- NOTE | 2017-11-27 21:06 | CP.PCM.CON ---
History of Present Illness - History of Present Illness History of Present Illness: Consultation for preoperative cardiovascular risk stratification HPI: 82 year old female with hx of stage IV metastatic lung ca , DM, hypothyroidism presenting with gait imbalance presented after a mechanical fall and found to have intracranial mass with hemorrhage. Is being planned for possible craniotomy. Lung Ca was diagnosed in 8 due to discomfort in her right axilla and was on radiation therapy x 5 at [facility]. At baseline active with no ischemic symptoms. Echo reviewed shows low normal LVEF with no WMA and no valvular heart disease. Review of Systems - Review of Systems All systems: reviewed and no additional remarkable complaints except - Constitutional Constitutional: As Per HPI, Frequent Falls. absent: Anorexia, Chills, Daytime Sleepiness, Excessive Sweating, Fatigue, Fever, Headache, Increased Appetite, Lethargy, Malaise, Night Sweats, Snoring, Sleep Apnea, Weight Gain, Weight Loss , Weakness, Other - EENT Eyes: As Per HPI, Change in Vision, Other Visual Disturbances. absent: Blind Spots, Blurred Vision, Decreased Night Vision, Diplopia, Discharge, Dry Eye, Exophthalmos, Floaters, Irritation, Itchy Eyes, Loss of Peripheral Vision, Pain , Photophobia, Requires Corrective Lenses, Sees Flashes, Spots in Vision, Tunnel Vision, Loss of Vision, Other Ears: As Per HPI. absent: Decreased Hearing, Ear Discharge, Ear Pain, Tinnitus , Abnormal Hearing, Disequilibrium, Dizziness, Other Nose/Mouth/Throat: As Per HPI. absent: Epistaxis, Nasal Congestion, Nasal Discharge, Nasal Obstruction, Nasal Trauma, Nose Pain, Post Nasal Drip, Sinus Pain, Sinus Pressure, Bleeding Gums, Change in Voice, Dental Pain, Dry Mouth, Dysphagia, Halitosis, Hoarsness, Lip Swelling, Mouth Lesions, Mouth Pain, Odynophagia, Sore Throat, Throat Swelling, Tongue Swelling, Facial Pain, Neck Pain, Neck Mass, Other - Breasts Breasts: As Per HPI. absent: Change in Shape, Mass, Pain, Nipple Discharge, Nipple Inversion, Skin Changes, Swelling, Other - Cardiovascular Cardiovascular: As Per HPI, Dyspnea on Exertion. absent: Acrocyanosis, Chest Pain, Chest Pain at Rest, Chest Pain with Activity, Claudication, Diaphoresis, Dyspnea, Edema, Irregular Heart Rhythm, Pain Radiating to Arm/Neck/Jaw, Leg Edema, Leg Ulcers, Lightheadedness, Orthopnea, Palpitations, Paroxysmal Nocturnal Dyspnea, Pedal Edema, Radiating Pain, Rapid Heart Rate, Slow Heart Rate, Syncope, Other - Respiratory Respiratory: As Per HPI. absent: Cough, Dyspnea, Hemoptysis, Dyspnea on Exertion, Wheezing, Snoring, Stridor, Pain on Inspiration, Chest Congestion, Excessive Mucous Production, Change in Mucous Color, Pain with Coughing, Other - Gastrointestinal Gastrointestinal: As Per HPI. absent: Abdominal Pain, Belching, Bloating, Change in Bowel Habits, Change in Stool Character, Coffee Ground Emesis, Constipation, Cramping, Diarrhea, Dyspepsia, Dysphagia, Early Satiety, Excessive Flatus, Fecal Incontinence, Heartburn, Hematemesis, Hematochezia, Loose Stools, Melena, Nausea, Odynophagia, Temesmus, Vomiting, Other - Genitourinary Genitourinary: As Per HPI. absent: Change in Urinary Stream, Difficulty Urinating, Dysuria, Flank Pain, Hematuria, Pyuria, Nocturia, Urinary Incontinence, Urinary Frequency, Urinary Hesitance, Urinary Urgency, Voiding Freq/Small Amts, Freq UTI, Hx Renal/Bladder Calculi, Hx /Renal Surgery, Bladder Distension, Other - Reproductive: Female Reproductive:Female: As Per HPI. absent: Amenorrhea, Amenorrhea/ Control, Currently Menstual, Cycle <21 Days, Cycle >35 Days, Cycle Variable, Menses 1-7 Days, Menses >/= 8 Days, Menses Variable, Cycle > 4 Weeks Between, No Menses for 6 Months, Heavy Menses, Light Menses, Normal Menses, Spotting Between Cycles , S/P Hysterectomy, Menopausal, Post Menopausal, Premenarche, Abnormal Vaginal Bleeding, Dysmenorrhea, Dyspareunia, Genital Lesions, Genital Pruritis, Pelvic Pain, Prolapse Symptoms, Sexual Dysfunction, Vaginal Discharge, Vaginal Dryness , Vaginal Odor, Vaginal Pruritis, Other - Musculoskeletal Musculoskeletal: As Per HPI. absent: Abnormal Gait, Arthralgias, Atrophy, Back Pain, Deformity, Joint Swelling, Limited Range of Motion, Loss of Height, Muscle Cramps, Muscle Weakness, Myalgias, Neck Pain, Numbness, Radiating Pain into Limb, Stiffness, Tingling, Other - Integumentary Integumentary: As Per HPI. absent: Acne, Alopecia, Bleeding Lesions, Change in Hair, Change in Nails, Change in Pigmentation, Changing Lesions, Dry Skin, Erythema, Furuncle, Hirsutism, Lesions, New Lesions, Non-Healing Lesions, Photosensitivity, Pruritus, Rash, Skin Pain, Skin Ulcer, Sores, Striae, Swelling , Unusual Bruising, Wounds, Jaundice, Other - Neurological Neurological: As Per HPI, Frequent Falls, Vertigo. absent: Abnormal Gait, Abnormal Hearing, Abnormal Movements, Abnormal Speech, Behavioral Changes, Burning Sensations, Confusion, Convulsions, Disequilibrium, Dizziness, Numbness , Focal Weakness, Headaches, Lack of Coordination, Loss of Vision, Memory Loss, Paresthesias, Radicular Pain, Restless Legs, Sensory Deficit, Syncope, Tingling , Tremor, Weakness, Other Visual Disturbances, Other - Psychiatric Psychiatric: As Per HPI. absent: Abnormal Sleep Pattern, Anhedonia, Anxiety, Auditory Hallucinations, Behavioral Changes, Change in Appetite, Change in Libido, Confusion, Depression, Difficulty Concentrating, Hallucinations, Homicidal Ideation, Hopelessness, Irritability, Memory Loss, Mood Swings, Panic Attacks, Paranoia, Suicidal Ideation, Visual Hallucinations, Tactile Hallucinations, Other - Endocrine Endocrine: As Per HPI. absent: Change in Body Appearance, Change in Libido, Cold Intolorance, Deepening of Voice, Excessive Sweating, Fatigue, Flushing, Heat Intolorance, Increase in Ring/Shoe/Hat Size, Palpitations, Polydipsia, Polyphagia, Polyuria, Other - Hematologic/Lymphatic Hematologic: As Per HPI Past Patient History - Past Medical History & Family History Past Medical History?: Yes - Past Social History Smoking Status: Unknown If Ever Smoked Chewing Tobacco Use: No Cigar Use: No Alcohol: None Drugs: Denies, Inhalants Home Situation {Lives}: With Family - CARDIAC Hx Cardiac Disorders: No - PULMONARY Hx Respiratory Disorders: Yes Hx Lung Cancer: Yes (stage 4) - NEUROLOGICAL Hx Neurological Disorder: Yes Hx Dizziness: Yes - HEENT Hx HEENT Problems: No - RENAL Hx Chronic Kidney Disease: No - ENDOCRINE/METABOLIC Hx Endocrine Disorders: Yes (pre-diabetes) Hx Hypothyroidism: Yes - HEMATOLOGICAL/ONCOLOGICAL Hx Blood Disorders: No - INTEGUMENTARY Hx Dermatological Problems: No - MUSCULOSKELETAL/RHEUMATOLOGICAL Hx Musculoskeletal Disorders: Yes Hx Falls: Yes - GASTROINTESTINAL Hx Gastrointestinal Disorders: No - GENITOURINARY/GYNECOLOGICAL Hx Genitourinary Disorders: No - PSYCHIATRIC Hx Psychophysiologic Disorder: No Hx Substance Use: No - SURGICAL HISTORY Hx Cholecystectomy: Yes - ANESTHESIA Hx Anesthesia: Yes Hx Anesthesia Reactions: No Meds Allergies/Adverse Reactions: Allergies Allergy/AdvReac Type Severity Reaction Status Date / Time atropine [From Lomotil] Allergy SHORTNESS Verified 11/23/17 19:34 OF BREATH belladonna alkaloids Allergy URTICARIA Verified 11/23/17 19:34 cefadroxil [From Duricef] Allergy SHORTNESS Verified 11/23/17 19:34 OF BREATH diphenoxylate [From Lomotil] Allergy SHORTNESS Verified 11/23/17 19:34 OF BREATH erythromycin base Allergy DIARRHEA Verified 11/23/17 19:34 [From Erythrocin] hyoscyamine [From ] Allergy SHORTNESS Verified 11/23/17 19:34 OF BREATH iodine Allergy RASH Verified 11/23/17 19:34 Opioids - Morphine Analogues Allergy SHORTNESS Verified 11/23/17 19:45 OF BREATH Penicillins Allergy SHORTNESS Verified 11/23/17 19:34 OF BREATH phenobarbital [From ] Allergy SHORTNESS Verified 11/23/17 19:34 OF BREATH scopolamine [From ] Allergy SHORTNESS Verified 11/23/17 19:34 OF BREATH tetracycline Allergy DIARRHEA Verified 11/23/17 19:34 - Medications Medications: Current Medications Acetaminophen (Tylenol 325mg Tab) 650 mg PO Q4 PRN PRN Reason: Headache Last Admin: 11/25/17 03:02 Dose: 650 mg Dexamethasone (Decadron Inj) 4 mg IV Q6 [facility] Last Admin: 11/27/17 16:12 Dose: 4 mg Piperacillin Sod/Tazobactam (Sod 3.375 gm/ Sodium Chloride) 100 mls @ 100 mls/ hr IVPB Q6 [facility] PRN Reason: Protocol Last Admin: 11/27/17 15:35 Dose: 100 mls/hr Vancomycin HCl 750 mg/ Sodium (Chloride) 250 mls @ 166.667 mls/hr IVPB Q12H [facility] PRN Reason: Protocol Last Admin: 11/27/17 12:10 Dose: 166.667 mls/hr Levetiracetam 500 mg/ Sodium (Chloride) 105 mls @ 210 mls/hr IVPB Q12 [facility] Last Admin: 11/27/17 20:54 Dose: 210 mls/hr Insulin Human Regular (Humulin R) 0 units SC ACHS [facility] PRN Reason: Protocol Last Admin: 11/27/17 16:34 Dose: 2 units Levothyroxine Sodium (Synthroid) 60 mcg IVP DAILY [facility] Last Admin: 11/27/17 09:19 Dose: 60 mcg Magnesium Hydroxide (Milk Of Magnesia) 15 ml PO QID PRN PRN Reason: Constipation Last Admin: 11/25/17 20:22 Dose: 15 ml Mannitol (Mannitol) 25 gm IV Q6H [facility] Last Admin: 11/27/17 16:27 Dose: Not Given Pantoprazole Sodium (Protonix Inj) 40 mg IVP DAILY [facility] Last Admin: 11/27/17 09:16 Dose: 40 mg Physical Exam - Constitutional Appears: Well - Head Exam Head Exam: ATRAUMATIC, NORMAL INSPECTION, NORMOCEPHALIC - Eye Exam Eye Exam: EOMI, Normal appearance, PERRL Pupil Exam: NORMAL ACCOMODATION, PERRL - ENT Exam ENT Exam: Mucous Membranes Moist, Normal Exam - Neck Exam Neck exam: Positive for: Normal Inspection - Respiratory Exam Respiratory Exam: Clear to Auscultation Bilateral, NORMAL BREATHING PATTERN - Cardiovascular Exam Cardiovascular Exam: REGULAR RHYTHM, +S1, +S2, Systolic Murmur - GI/Abdominal Exam GI & Abdominal Exam: Normal Bowel Sounds, Soft. absent: Tenderness - Extremities Exam Extremities exam: Positive for: normal inspection - Back Exam Back exam: NORMAL INSPECTION - Neurological Exam Neurological exam: Alert, CN II-XII Intact, Oriented x3, Reflexes Normal - Psychiatric Exam Psychiatric exam: Normal Affect, Normal Mood - Skin Skin Exam: Dry, Intact, Normal Color, Warm Results - Vital Signs Recent Vital Signs: Last Vital Signs Temp 97 F L 11/27/17 20:00 Pulse 79 11/27/17 20:00 Resp 18 11/27/17 20:00 BP 120/65 11/27/17 20:00 Pulse Ox 94 L 11/27/17 20:00 - Labs Result Diagrams: 11/28/17 05:15 11/28/17 05:15 Labs: Laboratory Results - last 24 hr 11/26/17 11/27/17 11/27/17 21:31 04:30 04:30 WBC 6.2 RBC 3.49 L Hgb 10.9 L Hct 32.8 L MCV 94.0 MCH 31.3 H MCHC 33.3 RDW 15.6 H Plt Count 238 Sodium 133 Potassium 4.4 Chloride 100 Carbon Dioxide 27 Anion Gap 10 BUN 19 H Creatinine 0.9 Est GFR ( Amer) > 60 Est GFR (Non-Af Amer) > 60 POC Glucose (mg/dL) 262 H Random Glucose 258 H Calcium 10.3 H Total Bilirubin 0.5 AST 27 ALT 31 Alkaline Phosphatase 81 Total Protein 6.7 Albumin 3.2 L Globulin 3.4 Albumin/Globulin Ratio 0.9 L 11/27/17 11/27/17 11/27/17 06:51 11:31 16:04 WBC RBC Hgb Hct MCV MCH MCHC RDW Plt Count Sodium Potassium Chloride Carbon Dioxide Anion Gap BUN Creatinine Est GFR ( Amer) Est GFR (Non-Af Amer) POC Glucose (mg/dL) 227 H 264 H 245 H Random Glucose Calcium Total Bilirubin AST ALT Alkaline Phosphatase Total Protein Albumin Globulin Albumin/Globulin Ratio Assessment & Plan (1) Preop cardiovascular exam Assessment and Plan: As per ACC/AHA guidelines she can proceed with planned craniotomy with moderate risk for perioperative cardiac event. 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
[2017-11-28] MEDS: Mannitol 12.5 gm/50 ml Inj IV SCH ×4 (03:30→23:02)
[2017-11-28] MEDS: Dexamethasone 4 mg/1 ml IV SCH ×4 (04:00→22:20)
[2017-11-28] MEDS: Piperacillin/Tazobact 3.375 GM in Sodium Chloride 0.9% 100 ML IVPB SCH ×4 (04:18→22:21)
[2017-11-28 05:51] LABS: HEMOGLOBIN 11.7 g/dL (12.0-16.0); MEAN CELL VOLUME 92.7 fl (81.0-99.0); MEAN CORPUSCULAR HEMOGLOBIN 31.7 pg (27.0-31.0); MEAN CORPUSCULAR HGB CONC 34.1 g/dL (33.0-37.0); RBC 3.71 Mil/uL (3.80-5.20); WHITE BLOOD COUNT 6.4 K/uL (4.8-10.8)
[2017-11-28 06:32] LABS: ALB/GLOB RATIO 0.9 (1.0-2.1); ALBUMIN 3.2 g/dL (3.5-5.0); ALT/SGPT 61 U/L (9-52); AST/SGOT 48 U/L (14-36); BLOOD UREA NITROGEN 18 mg/dl (7-17); CALCIUM 9.8 mg/dL (8.4-10.2); GFR AFRICAN-AMERICAN > 60; GFR NON-AFRICAN AMERICAN 53
[2017-11-28 07:02] LABS: PARTIAL THROMBOPLASTIN TIME 20.7 Seconds (25.6-37.1); PROTHROMBIN TIME 11.4 Seconds (9.8-13.1)
[2017-11-28] MEDS: Insulin Regular 100 units/ml SC SCH ×4 (07:24→22:14)
[2017-11-28] MEDS: levETIRAcetam 500 MG in Sodium Chloride 0.9% 100 ML IVPB SCH ×2 (08:27→20:36)
--- NOTE | 2017-11-28 09:27 | CON ---
CONSULTATION DATE OF CONSULT: 11/24/2017 HISTORY OF PRESENT ILLNESS: This rather unfortunate 82-year-old lady that apparently was diagnosed with small cell lung carcinoma. Several months ago, she was diagnosed as stage IV. She was treated with several sessions of radiation. It is believed that she due to intolerance did not finish the full course, and she declined chemotherapy, really has not been following with anyone for a while. She presented to the ER last night with confusion and difficulty walking and was found to have a rather large right parietal hemorrhagic mass consistent with metastatic tumor. She was admitted to the ICU. Interviewing her today, she is much better. She has a more brighter look. She is complaining much more of the IV in her arm than anything else. PAST MEDICAL HISTORY: As above. The rest of her medical history, medications, allergies, social history are reviewed in the chart. PHYSICAL EXAMINATION: GENERAL: She is bright, awake, and alert. She is oriented to the hospital,day, and date. She names all objects presented. She follows all commands. There is a little bit of a language barrier. I think she at worst is very very mildly confused. HEENT: Pupils are equal and reactive. EOMs are full. Face is symmetric. NEUROLOGIC: She does have a left-sided drift. She does have good strength throughout the right side. In the left arm, she is probably 5-/5 and 4+/5 in the left leg. Sensory exam is noted for some sedation throughout, predominantly in the left leg. Her proprioception may be a little bit worse on the left. Reflexes are diminished. Plantars are upgoing bilaterally. CT and subsequently MRI of the brain documented a relatively large hemorrhagic mass in the right parietal area. There is a small amount of midline shift. There is posterior compression, all consistent with a hemorrhagic lung metastasis. No gadolinium was given, and as best could be seen, I did not see any other mass. IMPRESSION AND PLAN: I had a very long discussion with the patient and three members of her family. My recommendation would be a right parietal craniotomy and excision of the mass. The rationale is mostly to revert progressive neurological worsening as well as hopefully prolong her survival; obviously, this will not be curative, and furthermore she probably will be left with some degree of residual hemiparesis, hemisensory loss. This was all discussed at length with the family including the details of the procedure, potential risks, complications, and recovery time, I answered their questions. Understandably, this is a fair amount of information in a short time. I encouraged that they think it over preliminarily. I took some OR time at the beginning of the week; obviously, we are not going to be doing anything for the next three days of 's weekend and I await hearing back from them. Brad Parekh MD
[2017-11-28] MEDS: Levothyroxine 100 mcg (0.1 mg) Inj IVP SCH (10:24)
--- NOTE | 2017-11-28 11:43 | CP.PCM.PN ---
Subjective - Date & Time of Evaluation Date of Evaluation: 11/28/17 Time of Evaluation: 11:42 - Subjective Subjective: feeling fine EKG reviewed - NSR Objective - Vital Signs/Intake and Output Vital Signs (last 24 hours): Temp Pulse Resp BP Pulse Ox 98.1 F 79 21 154/82 H 98 11/28/17 08:00 11/28/17 10:00 11/28/17 10:00 11/28/17 10:00 11/28/17 10:00 Intake and Output: 11/28/17 11/28/17 06:59 18:59 Intake Total 510 Output Total 1000 Balance -490 - Medications Medications: Current Medications Acetaminophen (Tylenol 325mg Tab) 650 mg PO Q4 PRN PRN Reason: Headache Last Admin: 11/25/17 03:02 Dose: 650 mg Dexamethasone (Decadron Inj) 4 mg IV Q6 [facility] Last Admin: 11/28/17 10:24 Dose: 4 mg Piperacillin Sod/Tazobactam (Sod 3.375 gm/ Sodium Chloride) 100 mls @ 100 mls/ hr IVPB Q6 [facility] PRN Reason: Protocol Last Admin: 11/28/17 10:20 Dose: 100 mls/hr Vancomycin HCl 750 mg/ Sodium (Chloride) 250 mls @ 166.667 mls/hr IVPB Q12H [facility] PRN Reason: Protocol Last Admin: 11/28/17 10:19 Dose: 166.667 mls/hr Levetiracetam 500 mg/ Sodium (Chloride) 105 mls @ 210 mls/hr IVPB Q12 [facility] Last Admin: 11/28/17 08:27 Dose: 210 mls/hr Insulin Human Regular (Humulin R) 0 units SC ACHS [facility] PRN Reason: Protocol Last Admin: 11/28/17 07:24 Dose: Not Given Levothyroxine Sodium (Synthroid) 60 mcg IVP DAILY [facility] Last Admin: 11/28/17 10:24 Dose: Not Given Magnesium Hydroxide (Milk Of Magnesia) 15 ml PO QID PRN PRN Reason: Constipation Last Admin: 11/25/17 20:22 Dose: 15 ml Mannitol (Mannitol) 25 gm IV Q6H [facility] Last Admin: 11/28/17 08:30 Dose: 25 gm Pantoprazole Sodium (Protonix Inj) 40 mg IVP DAILY [facility] Last Admin: 11/28/17 08:31 Dose: 40 mg - Labs Labs: 11/28/17 05:15 11/28/17 05:15 PT 11.4 Seconds (9.8-13.1) 11/28/17 05:15 INR 1.0 (0.9-1.2) 11/28/17 05:15 APTT 20.7 Seconds (25.6-37.1) L 11/28/17 05:15 - Constitutional Appears: Well - Head Exam Head Exam: ATRAUMATIC, NORMAL INSPECTION, NORMOCEPHALIC - Eye Exam Eye Exam: EOMI, Normal appearance, PERRL Pupil Exam: NORMAL ACCOMODATION, PERRL - ENT Exam ENT Exam: Mucous Membranes Moist, Normal Exam - Neck Exam Neck Exam: Full ROM, Normal Inspection. absent: Lymphadenopathy - Respiratory Exam Respiratory Exam: Clear to Ausculation Bilateral, NORMAL BREATHING PATTERN - Cardiovascular Exam Cardiovascular Exam: REGULAR RHYTHM, +S1, +S2, Murmur - GI/Abdominal Exam GI & Abdominal Exam: Soft, Normal Bowel Sounds. absent: Tenderness - Extremities Exam Extremities Exam: Full ROM, Normal Capillary Refill, Normal Inspection. 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
[2017-11-28] MEDS ORDERED: APROTININ/FIBRINOGEN(TISSEEL) ONE (11:50)
[2017-11-28] MEDS ORDERED: Thrombin Topical 5,000 Int Units Spray Kit ONE (11:50)
[2017-11-28] MEDS ORDERED: Rocuronium 10 mg/ml (5 ml) ONE (11:51)
[2017-11-28] MEDS ORDERED: Succinylcholine 200 mg/10 ml Inj IV ONE (11:51)
[2017-11-28] MEDS ORDERED: Propofol 10 mg/ml Inj (20 ML) ONE ×3 (11:51→14:14)
[2017-11-28] MEDS ORDERED: Remifentanil 2 MG PDS IV ONE (11:55)
[2017-11-28] MEDS ORDERED: Absorbable Gelatin Sponge Size 100 ONE ×2 (12:07→13:39)
[2017-11-28] MEDS ORDERED: Sodium Chloride 0.9% 30 ML IV ONE (12:08)
[2017-11-28] MEDS ORDERED: Lactated Ringer's 1,000 ML IV ONE (12:20)
[2017-11-28] MEDS ORDERED: Bacitracin Ointment 30 GM TUBE ONE (12:21)
[2017-11-28] MEDS ORDERED: Lidocaine 2% w Epi 1:100,000 Inj IJ ONE ×2 (12:38→13:01)
--- NOTE | 2017-11-28 12:43 | CP.CCUPN ---
CCU Subjective - Physician Review Subjective (Free Text): 11/28/17 The patient was Seen/interviewed and examined by me at the bedside during ICU round, Medical records reviewed and Management issues were discussed and formulated with the house staff. Events reviewed Mrs Moore is 82 years old female with PMHx of Diabetes, Hypothyroidism and Stage IV lung cancer that was recently diagnosed at [facility] with BX ( Likely small cell lung cancer) Who was brought to the Emergency department on 11/23 because she fell in the Bathroom hitting the front and back of her head as well as right rib cage, She Pt complained of dizziness and headache. No Loss of consciousness as per family. Patient with H/O multiple falls at home, she has been unsteady gait at her home , got worse since 5 days ago. In the ED, she had head CT scan showing intracranial bleed, The NIHSS was 7, No external bleeding from the head on exam. 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 Interval Events This morning, Pt clinically and neurologically improved No Vasopressors Awake, comfortable, NAD Pt Alert, follows some commands Denies any chest pain, SOB or Palpitations No N/vomiting Afebrile, NSR on the monitor Bilateral venodyne boots intact I had extensive discussion with the family today, We reviewed the rationale, risks, and alternatives to treatment with them, The patients family was given the opportunity to ask many questions which were answered to his satisfaction. Patient scheduled for craniotomy/excision today CCU Objective - Vital Signs / Intake & Output Vital Signs (Last 4 hours): Vital Signs Pulse Resp BP Pulse Ox 11/28/17 11:00 78 18 158/90 H 96 11/28/17 10:00 79 21 154/82 H 98 11/28/17 09:00 76 16 153/72 H 96 Intake and Output (Last 8hrs): Intake & Output 11/27/17 11/28/17 11/28/17 22:59 06:59 14:59 Intake Total 610 510 Output Total 1100 1000 Balance -490 -490 Intake: IV 150 510 Intake, Piggyback 100 Oral 360 Output: Urine 1100 1000 Urethral (Baker) 1100 1000 - Physical Exam Head: Positive for: Atraumatic, Normocephalic. Negative for: Tenderness, Contusion, Swelling Pupils: Positive for: PERRL. Negative for: Sluggish, Non-Reactive Conjunctiva: Positive for: Normal. Negative for: Injected, Icteric Mouth: Positive for: Moist Mucous Membranes Nose (Internal): Positive for: Normal Inspection Neck: Positive for: Normal Range of Motion, Trachea Midline. Negative for: Meningeal Signs, MIDLINE TENDERNESS, Paraspinal Tenderness, JVD, Lymphadenopathy , Bruit, Other Respiratory/Chest: Positive for: Good Air Exchange, Decreased Breath Sounds ( right side), Rhonchi. Negative for: Respiratory Distress, Accessory Muscle Use , Wheezes, Rales, Retracting Cardiovascular: Positive for: Regular Rate and Rhythm, Normal S1, S2, Peripheal Pulses Present. Negative for: Murmurs, Irregular Rhythm, Tachycardic, Bradycardic Upper Extremity: Positive for: Normal Inspection, NORMAL PULSES, Capillary Refill < 2s. Negative for: Cyanosis, Edema Lower Extremity: Positive for: Normal Inspection, NORMAL PULSES, Capillary Refill < 2 s. Negative for: Edema, CALF TENDERNESS - Medications Active Medications: Active Medications Generic Name Dose Route Start Last Admin Trade Name Freq PRN Reason Stop Dose Admin Acetaminophen 650 mg 11/25/17 02:54 11/25/17 03:02 Tylenol 325mg Tab PO 650 mg Q4 PRN Administration Headache Dexamethasone 4 mg 11/24/17 16:00 11/28/17 10:24 Decadron Inj IV 4 mg Q6 MARY ANN Administration Piperacillin Sod/Tazobactam 100 mls @ 100 mls/hr 11/24/17 10:00 11/28/17 10: 20 Sod 3.375 gm/ Sodium Chloride IVPB 100 mls/hr Q6 MARY ANN Administration Protocol Vancomycin HCl 750 mg/ Sodium 250 mls @ 166.667 mls/hr 11/24/17 08:30 10:19 Chloride IVPB 166.667 mls/hr Q12H MARY ANN Administration Protocol Levetiracetam 500 mg/ Sodium 105 mls @ 210 mls/hr 11/27/17 21:00 11/28/17 08: 27 Chloride IVPB 210 mls/hr Q12 MARY ANN Administration Insulin Human Regular 0 units 12/30/17 22:00 11/28/17 07:24 Humulin R SC Not Given ACHS [facility] Protocol Levothyroxine Sodium 60 mcg 11/25/17 09:00 11/28/17 10:24 Synthroid IVP Not Given DAILY MARY ANN Magnesium Hydroxide 15 ml 11/25/17 20:08 11/25/17 20:22 Milk Of Magnesia PO 15 ml QID PRN Administration Constipation Mannitol 25 gm 11/27/17 15:30 11/28/17 08:30 Mannitol IV 25 gm Q6H MARY ANN Administration Pantoprazole Sodium 40 mg 11/24/17 09:00 11/28/17 08:31 Protonix Inj IVP 40 mg DAILY MARY ANN Administration - Patient Studies Lab Studies: Lab Studies 11/28/17 11/28/17 11/28/17 Range/Units 12:45 11:19 06:22 WBC (4.8-10.8) K/uL RBC (3.80-5.20) Mil/uL Hgb (12.0-16.0) g/dL Hct (34.0-47.0) % MCV (81.0-99.0) fl MCH (27.0-31.0) pg MCHC (33.0-37.0) g/dL RDW (11.5-14.5) % Plt Count (130-400) K/uL PT (9.8-13.1) Seconds INR (0.9-1.2) APTT (25.6-37.1) Seconds Sodium (132-148) mmol/l Potassium (3.6-5.0) MMOL/L Chloride (98-107) mmol/L Carbon Dioxide (22-30) mmol/L Anion Gap (10-20) BUN (7-17) mg/dl Creatinine (0.7-1.2) mg/dl Est GFR ( Amer) Est GFR (Non-Af Amer) POC Glucose (mg/dL) 229 H 238 H (65-110) mg/dL Random Glucose (65-105) mg/dL Calcium (8.4-10.2) mg/dL Total Bilirubin (0.2-1.3) mg/dl AST (14-36) U/L ALT (9-52) U/L Alkaline Phosphatase (38-126) U/L Total Protein (6.3-8.2) G/DL Albumin (3.5-5.0) g/dL Globulin (2.2-3.9) gm/dL Albumin/Globulin Ratio (1.0-2.1) Blood Type O POSITIVE Blood Type Confirm Antibody Screen Negative Crossmatch See Detail BBK History Checked No verified bt 11/28/17 11/28/17 11/28/17 Range/Units 05:15 05:15 05:15 WBC 6.4 (4.8-10.8) K/uL RBC 3.71 L (3.80-5.20) Mil/uL Hgb 11.7 L (12.0-16.0) g/dL Hct 34.4 (34.0-47.0) % MCV 92.7 (81.0-99.0) fl MCH 31.7 H (27.0-31.0) pg MCHC 34.1 (33.0-37.0) g/dL RDW 15.0 H (11.5-14.5) % Plt Count 288 (130-400) K/uL PT 11.4 (9.8-13.1) Seconds INR 1.0 (0.9-1.2) APTT 20.7 L (25.6-37.1) Seconds Sodium 133 (132-148) mmol/l Potassium 4.0 (3.6-5.0) MMOL/L Chloride 97 L (98-107) mmol/L Carbon Dioxide 30 (22-30) mmol/L Anion Gap 10 (10-20) BUN 18 H (7-17) mg/dl Creatinine 1.0 (0.7-1.2) mg/dl Est GFR ( Amer) > 60 Est GFR (Non-Af Amer) 53 POC Glucose (mg/dL) (65-110) mg/dL Random Glucose 274 H (65-105) mg/dL Calcium 9.8 (8.4-10.2) mg/dL Total Bilirubin 0.6 (0.2-1.3) mg/dl AST 48 H D (14-36) U/L ALT 61 H D (9-52) U/L Alkaline Phosphatase 92 (38-126) U/L Total Protein 6.6 (6.3-8.2) G/DL Albumin 3.2 L (3.5-5.0) g/dL Globulin 3.4 (2.2-3.9) gm/dL Albumin/Globulin Ratio 0.9 L (1.0-2.1) Blood Type Blood Type Confirm Antibody Screen Crossmatch BBK History Checked 11/28/17 11/27/17 11/27/17 Range/Units 01:12 21:52 16:04 WBC (4.8-10.8) K/uL RBC (3.80-5.20) Mil/uL Hgb (12.0-16.0) g/dL Hct (34.0-47.0) % MCV (81.0-99.0) fl MCH (27.0-31.0) pg MCHC (33.0-37.0) g/dL RDW (11.5-14.5) % Plt Count (130-400) K/uL PT (9.8-13.1) Seconds INR (0.9-1.2) APTT (25.6-37.1) Seconds Sodium (132-148) mmol/l Potassium (3.6-5.0) MMOL/L Chloride (98-107) mmol/L Carbon Dioxide (22-30) mmol/L Anion Gap (10-20) BUN (7-17) mg/dl Creatinine (0.7-1.2) mg/dl Est GFR ( Amer) Est GFR (Non-Af Amer) POC Glucose (mg/dL) 320 H 245 H (65-110) mg/dL Random Glucose (65-105) mg/dL Calcium (8.4-10.2) mg/dL Total Bilirubin (0.2-1.3) mg/dl AST (14-36) U/L ALT (9-52) U/L Alkaline Phosphatase (38-126) U/L Total Protein (6.3-8.2) G/DL Albumin (3.5-5.0) g/dL Globulin (2.2-3.9) gm/dL Albumin/Globulin Ratio (1.0-2.1) Blood Type Blood Type Confirm O POSITIVE Antibody Screen Crossmatch BBK History Checked Laboratory Results - last 24 hr 11/27/17 11/27/17 11/28/17 16:04 21:52 01:12 WBC RBC Hgb Hct MCV MCH MCHC RDW Plt Count PT INR APTT Sodium Potassium Chloride Carbon Dioxide Anion Gap BUN Creatinine Est GFR ( Amer) Est GFR (Non-Af Amer) POC Glucose (mg/dL) 245 H 320 H Random Glucose Calcium Total Bilirubin AST ALT Alkaline Phosphatase Total Protein Albumin Globulin Albumin/Globulin Ratio Blood Type Blood Type Confirm O POSITIVE Antibody Screen Crossmatch BBK History Checked 11/28/17 11/28/17 11/28/17 05:15 05:15 05:15 WBC 6.4 RBC 3.71 L Hgb 11.7 L Hct 34.4 MCV 92.7 MCH 31.7 H MCHC 34.1 RDW 15.0 H Plt Count 288 PT 11.4 INR 1.0 APTT 20.7 L Sodium 133 Potassium 4.0 Chloride 97 L Carbon Dioxide 30 Anion Gap 10 BUN 18 H Creatinine 1.0 Est GFR ( Amer) > 60 Est GFR (Non-Af Amer) 53 POC Glucose (mg/dL) Random Glucose 274 H Calcium 9.8 Total Bilirubin 0.6 AST 48 H D ALT 61 H D Alkaline Phosphatase 92 Total Protein 6.6 Albumin 3.2 L Globulin 3.4 Albumin/Globulin Ratio 0.9 L Blood Type Blood Type Confirm Antibody Screen Crossmatch BBK History Checked 11/28/17 11/28/17 11/28/17 06:22 11:19 12:45 WBC RBC Hgb Hct MCV MCH MCHC RDW Plt Count PT INR APTT Sodium Potassium Chloride Carbon Dioxide Anion Gap BUN Creatinine Est GFR ( Amer) Est GFR (Non-Af Amer) POC Glucose (mg/dL) 238 H 229 H Random Glucose Calcium Total Bilirubin AST ALT Alkaline Phosphatase Total Protein Albumin Globulin Albumin/Globulin Ratio Blood Type O POSITIVE Blood Type Confirm Antibody Screen Negative Crossmatch See Detail BBK History Checked No verified bt Fingerstick Blood Sugar Results: 229 Review of Systems - Cardiovascular Cardiovascular: absent: Chest Pain, Chest Pain at Rest, Chest Pain with Activity , Claudication, Diaphoresis - Respiratory Respiratory: Cough. absent: Dyspnea, Hemoptysis, Dyspnea on Exertion, Wheezing , Snoring - Gastrointestinal Gastrointestinal: absent: Abdominal Pain, Nausea, Vomiting - Neurological Neurological: Abnormal Gait, Disequilibrium, Dizziness. absent: Abnormal Movements, Abnormal Speech, Behavioral Changes, Convulsions, Numbness, Focal Weakness, Headaches Critical Care Progress Note - Extremities/Vascular Does the Patient have a Central Venous Catheter?: Yes Does the Patient need a Central Venous Catheter?: Yes Does the Patient have a Baker Catheter?: Yes Does the Patient need a Baker Catheter?: Yes - Nutrition Nutrition: Nutrition Category Date Time Status Consistent Carbohydrate [DIET] Diets 11/25/17 Breakfast Active Assessment/Plan (1) Bleeding in brain Current Visit: Yes Status: Acute Priority: High Comment: Hemorrhagic Brain Metastasis Admitted to ICU for frequent neuro checks keep SBP <140 keep HOB >30 Neurology & Neuro surgeon Consulted, suggested surgical intervension Patient scheduled for craniotomy/excision today Keep NPO Swallow Eval DVT prophylaxis with SCD (2) CAP (community acquired pneumonia) Current Visit: Yes Status: Acute Comment: Patient had CXR and chest CT scan comparable with post-obstructive pneumonia, started on IV Vanco and Zosyn (3) Stage 4 malignant neoplasm of lung Current Visit: Yes Status: Acute Priority: High Comment: Patient refused Chemo, received short course of Radiotherapy for 4 cycles then could not tolerate further. Family consent obtained and Faxed to OSH to get all records, records reviewed Pain management Hydration Aggressive pulmonary toilet, chest PT, suctioning (4) Hypothyroidism Current Visit: Yes Status: Acute Priority: Medium (5) Diabetes mellitus Current Visit: Yes Status: Acute Priority: Medium (6) Metastasis to brain Current Visit: Yes Status: Acute Priority: High (7) DVT prophylaxis Current Visit: Yes Status: Acute
[2017-11-28] MEDS ORDERED: Dexamethasone 4 mg/1 ml ONE ×2 (12:46→13:03)
[2017-11-28] MEDS ORDERED: ePHEDrine 50 mg/ml Inj ONE (13:04)
[2017-11-28] MEDS ORDERED: Bacitracin OINT 15GM TOP ONE ×2 (13:05→13:40)
[2017-11-28] MEDS ORDERED: Thrombin Topical 5,000 Int Units Spray Kit TOP ONE (13:10)
[2017-11-28] MEDS ORDERED: HEMOSTATIC MATRIX 10 ML DIS.NEEDLE TOP ONE (13:20)
[2017-11-28] MEDS ORDERED: Absorbable Gelatin Sponge Size 100 TP ONE (13:22)
--- NOTE | 2017-11-28 13:22 | CP.PCM.PN ---
Subjective - Date & Time of Evaluation Date of Evaluation: 11/28/17 Time of Evaluation: 10:00 - Subjective Subjective: For brain lesion resection. Objective - Vital Signs/Intake and Output Vital Signs (last 24 hours): Temp Pulse Resp BP Pulse Ox 98.1 F 78 18 158/90 H 96 11/28/17 08:00 11/28/17 11:00 11/28/17 11:00 11/28/17 11:00 11/28/17 11:00 Intake and Output: 11/28/17 11/28/17 06:59 18:59 Intake Total 510 Output Total 1000 Balance -490 - Medications Medications: Current Medications Acetaminophen (Tylenol 325mg Tab) 650 mg PO Q4 PRN PRN Reason: Headache Last Admin: 11/25/17 03:02 Dose: 650 mg Dexamethasone (Decadron Inj) 4 mg IV Q6 [facility] Last Admin: 11/28/17 10:24 Dose: 4 mg Piperacillin Sod/Tazobactam (Sod 3.375 gm/ Sodium Chloride) 100 mls @ 100 mls/ hr IVPB Q6 MARY ANN PRN Reason: Protocol Last Admin: 11/28/17 10:20 Dose: 100 mls/hr Vancomycin HCl 750 mg/ Sodium (Chloride) 250 mls @ 166.667 mls/hr IVPB Q12H MARY ANN PRN Reason: Protocol Last Admin: 11/28/17 10:19 Dose: 166.667 mls/hr Levetiracetam 500 mg/ Sodium (Chloride) 105 mls @ 210 mls/hr IVPB Q12 MARY ANN Last Admin: 11/28/17 08:27 Dose: 210 mls/hr Insulin Human Regular (Humulin R) 0 units SC ACHS [facility]ARY ANN PRN Reason: Protocol Last Admin: 11/28/17 12:42 Dose: Not Given Levothyroxine Sodium (Synthroid) 60 mcg IVP DAILY [facility] Last Admin: 11/28/17 10:24 Dose: Not Given Magnesium Hydroxide (Milk Of Magnesia) 15 ml PO QID PRN PRN Reason: Constipation Last Admin: 11/25/17 20:22 Dose: 15 ml Mannitol (Mannitol) 25 gm IV Q6H [facility] Last Admin: 11/28/17 08:30 Dose: 25 gm Pantoprazole Sodium (Protonix Inj) 40 mg IVP DAILY [facility] Last Admin: 11/28/17 08:31 Dose: 40 mg - Labs Labs: 11/28/17 05:15 11/28/17 05:15 PT 11.4 Seconds (9.8-13.1) 11/28/17 05:15 INR 1.0 (0.9-1.2) 11/28/17 05:15 APTT 20.7 Seconds (25.6-37.1) L 11/28/17 05:15 - Head Exam Head Exam: ATRAUMATIC - Eye Exam Eye Exam: Normal appearance - ENT Exam ENT Exam: Mucous Membranes Dry - Respiratory Exam Respiratory Exam: NORMAL BREATHING PATTERN - Cardiovascular Exam Cardiovascular Exam: +S1, +S2 - GI/Abdominal Exam GI & Abdominal Exam: Normal Bowel Sounds Assessment and Plan (1) Metastasis to brain Assessment & Plan: for neurosurgical resection Status: Acute (2) Lung cancer Assessment & Plan: deferred chemotherapy prefer homeopathic treatment Status: Acute (3) Anemia Assessment & Plan: chronic disease Status: Acute
[2017-11-28] MEDS ORDERED: Neostigmine Methylsulfate 2 MG/2 ML ML IV ONE (13:43)
[2017-11-28] MEDS ORDERED: Liquid Adhesive TOP ONE (13:49)
[2017-11-28] MEDS ORDERED: Labetalol 5mg/ml (4ml) ONE (14:00)
[2017-11-28] MEDS ORDERED: Fentanyl Citrate 2,500 MCG in Dextrose 5% In Water 200 ML IV SCH (14:45)
--- NOTE | 2017-11-28 15:04 | RAD ---
PROCEDURE: CHEST RADIOGRAPH, 1 VIEW HISTORY: Respiratory failure COMPARISON: 11/26/2017 FINDINGS: LUNGS: extensive opacification of right hemithorax likely due to combination pleural effusion and pulmonary infiltrate. No change from previous. PLEURA: Probable small left pleural effusion. Moderate right pleural effusion with right apical pleural capping. No pneumothorax. CARDIOVASCULAR: New ET tube noted. Two to oblique positioning, tracheal aryan is difficult to identify. The tip is likely approximately 1.4 cm above the tracheal aryan. OSSEOUS STRUCTURES: No significant abnormalities. VISUALIZED UPPER ABDOMEN: Normal. OTHER FINDINGS: None. IMPRESSION: Moderate right pleural effusion and probable small left pleural effusion. No pneumothorax. Diffuse right-sided pulmonary infiltrate. New endotracheal tube. Tip likely approximately 1.4 cm above tracheal aryan.
--- NOTE | 2017-11-28 16:29 | CP.PCM.PN ---
<Deisi Calvillo - Last Filed: 11/28/17 17:01> Subjective - Date & Time of Evaluation Date of Evaluation: 11/28/17 Time of Evaluation: 08:00 - Subjective Subjective: Patient seen and examined at bedside, alert, verbal, asking questions in regards to surgery scheduled for today for resection of brain lesion. Anesthesiologist -Dr. Lopez and patient's daughter Gloria present as well. Witnessed consent obtained by Dr. Lopez for anesthesia, blood transfusion, and extensive discussion took place in regards to plan and adverse reactions to medications as daughter and patient had many concerns. Objective - Vital Signs/Intake and Output Vital Signs (last 24 hours): Temp Pulse Resp BP Pulse Ox 95.6 F L 94 H 16 150/84 100 11/28/17 16:00 11/28/17 16:00 11/28/17 16:00 11/28/17 16:00 11/28/17 16:00 Intake and Output: 11/28/17 11/28/17 06:59 18:59 Intake Total 1410 Output Total 1200 Balance 210 - Medications Medications: Current Medications Acetaminophen (Tylenol 325mg Tab) 650 mg PO Q4 PRN PRN Reason: Headache Last Admin: 11/25/17 03:02 Dose: 650 mg Dexamethasone (Decadron Inj) 4 mg IV Q6 [facility]ARY ANN Last Admin: 11/28/17 16:02 Dose: 4 mg Piperacillin Sod/Tazobactam (Sod 3.375 gm/ Sodium Chloride) 100 mls @ 100 mls/ hr IVPB Q6 [facility]ARY ANN PRN Reason: Protocol Last Admin: 11/28/17 16:09 Dose: 100 mls/hr Vancomycin HCl 750 mg/ Sodium (Chloride) 250 mls @ 166.667 mls/hr IVPB Q12H [facility]ARY ANN PRN Reason: Protocol Last Admin: 11/28/17 10:19 Dose: 166.667 mls/hr Levetiracetam 500 mg/ Sodium (Chloride) 105 mls @ 210 mls/hr IVPB Q12 [facility] ANN Last Admin: 11/28/17 08:27 Dose: 210 mls/hr Fentanyl Citrate 2,500 mcg/ (Dextrose) 250 mls @ 8.84 mls/hr IV .Q24H MARY ANN; 1 MCG/KG/HR PRN Reason: Protocol Last Admin: 11/28/17 15:46 Dose: 1 mcg/kg/hr, 8.84 mls/hr Insulin Human Regular (Humulin R) 0 units SC ACHS [facility] PRN Reason: Protocol Last Admin: 11/28/17 12:42 Dose: Not Given Levothyroxine Sodium (Synthroid) 60 mcg IVP DAILY [facility] Last Admin: 11/28/17 10:24 Dose: Not Given Magnesium Hydroxide (Milk Of Magnesia) 15 ml PO QID PRN PRN Reason: Constipation Last Admin: 11/25/17 20:22 Dose: 15 ml Mannitol (Mannitol) 25 gm IV Q6H [facility] Last Admin: 11/28/17 08:30 Dose: 25 gm Pantoprazole Sodium (Protonix Inj) 40 mg IVP DAILY [facility] Last Admin: 11/28/17 08:31 Dose: 40 mg - Labs Labs: 11/28/17 05:15 11/28/17 05:15 PT 11.4 Seconds (9.8-13.1) 11/28/17 05:15 INR 1.0 (0.9-1.2) 11/28/17 05:15 APTT 20.7 Seconds (25.6-37.1) L 11/28/17 05:15 - Constitutional Appears: No Acute Distress - Head Exam Head Exam: ATRAUMATIC, NORMOCEPHALIC - Eye Exam Eye Exam: EOMI, PERRL - ENT Exam ENT Exam: Mucous Membranes Moist - Neck Exam Neck Exam: Full ROM. absent: Lymphadenopathy - Respiratory Exam Respiratory Exam: NORMAL BREATHING PATTERN. absent: Respiratory Distress - Cardiovascular Exam Cardiovascular Exam: REGULAR RHYTHM, +S1, +S2 - GI/Abdominal Exam GI & Abdominal Exam: Soft (obese), Normal Bowel Sounds. absent: Tenderness - Extremities Exam Extremities Exam: Full ROM - Neurological Exam Neurological Exam: Alert, Awake, CN II-XII Intact, Oriented x3 - Psychiatric Exam Psychiatric exam: Normal Affect, Normal Mood - Skin Skin Exam: Dry, Warm Assessment and Plan - Assessment and Plan (Free Text) Assessment: 1. Hemorrhagic Brain Metastasis -CT Head: Hemorrhagic posterior right parietal/occipital mass and surrounding vasogenic edema consistent with neoplasm; probable small incidental meningioma -s/p :Decadron, Mannitol, Keppra 500mg IVP Q12 -11/24/17 MRI head: elliptical shaped hemorrhagic lesion in right posterior parieto-occipital watershed zone surrounded by vasogenic edema and together they exert considerable surrounding mass effect. -Consult Neuro surgeon appreciated:patient NPO, scheduled for brain lesion resection today -Consult Neurology appreciated: Dr. Bellamy: agree with craniotomy for excision of brain mass -Cardiology consult appreciated: Dr. Hathaway: patient is moderate risk for radha- operative cardiac event, may proceed with surgery - Neuro checks 2. Stage IV Lung cancer -diagnosed 06/2017; s/p radiotherapy -CT Chest:Large pleural-based mass extending from the right apex posteriorly almost to the lung base; right pleural effusion with large subpulmonic component ; atelectatic changes in the right lung greatest in the right lower lobe; mediastinal and right hilar adenopathy not optimally evaluated; age indeterminate posterior right seventh rib fracture - Pulmonology consult appreciated - Conservative/Palliative management - Pain management -Heme/Onc consult appreciated: chemotherapy deferred, on homeopathic treatment, may want immunotherapy in the future 3. Hypothyroidism - Synthroid 60mcg IVP daily 4. Diabetic Mellitus type 2 -controlled, HbA1c 7.4 - IV Fluid NS 75/hr - hypoglycemia protocol in place -POC glucose slightly elevated due to IV steroid treatments and D5 IV fluid 5. DVT Prophylaxis -SCD 6.GI prophylaxis - Pantoprazole 40mg IVP QD <Pedro Snyder K - Last Filed: 12/05/17 12:26> Objective - Vital Signs/Intake and Output Vital Signs (last 24 hours): Temp Pulse Resp BP Pulse Ox 97.3 F L 91 H 20 127/76 93 L 12/05/17 12:22 12/05/17 12:22 12/05/17 12:22 12/05/17 12:22 12/05/17 12:22 - Medications Medications: Current Medications Acetaminophen (Tylenol 325mg Tab) 650 mg PO Q4 PRN PRN Reason: Headache Last Admin: 12/03/17 15:03 Dose: 650 mg Albuterol Sulfate (Albuterol 0.083% Inhal [place] (2.5 Mg/3 Ml) Ud) 2.5 mg INH RQID [facility] Last Admin: 12/05/17 11:06 Dose: 2.5 mg Atorvastatin Calcium (Lipitor) 10 mg PO HS [facility] Last Admin: 12/04/17 23:23 Dose: Not Given Bacitracin (Bacitracin Oint) 1 applic TOP BID [facility] Last Admin: 12/05/17 09:11 Dose: 1 applic Levetiracetam 500 mg/ Sodium (Chloride) 105 mls @ 210 mls/hr IVPB Q12 [facility] Last Admin: 12/05/17 09:09 Dose: 210 mls/hr Vancomycin HCl 750 mg/ Sodium (Chloride) 250 mls @ 166.667 mls/hr IVPB Q12H [facility] PRN Reason: Protocol Last Admin: 12/05/17 11:34 Dose: Not Given Insulin Human Regular (Humulin R) 0 units SC ACHS [facility] PRN Reason: Protocol Last Admin: 12/05/17 10:58 Dose: Not Given Levothyroxine Sodium (Levothyroxine) 60 mcg IVP DAILY [facility] Last Admin: 12/05/17 09:09 Dose: 60 mcg Magnesium Hydroxide (Milk Of Magnesia) 15 ml PO QID PRN PRN Reason: Constipation Last Admin: 12/02/17 21:31 Dose: 15 ml Methylprednisolone (Solu-Medrol) 40 mg IV Q12H [facility] Last Admin: 12/05/17 06:50 Dose: Not Given Pantoprazole Sodium (Protonix Inj) 40 mg IVP DAILY [facility] Last Admin: 12/05/17 09:10 Dose: 40 mg - Labs Labs: 12/04/17 08:24 12/04/17 08:24 PT 11.4 Seconds (9.8-13.1) 11/28/17 05:15 INR 1.0 (0.9-1.2) 11/28/17 05:15 APTT 20.7 Seconds (25.6-37.1) L 11/28/17 05:15 Assessment and Plan - Assessment and Plan (Free Text) Assessment: Patient was personally seen and examined by me in rounds with residents. Available labs and diagnostic data reviewed. Case, Patient's condition and management plan discussed with residents in rounds. Agree with resident's progress note. Plan: As ordered.
--- NOTE | 2017-11-28 22:03 | PN ---
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 She did undergo craniectomy today. Following craniectomy, she is stable with a little sedation. PHYSICAL EXAMINATION: VITAL SIGNS: Blood pressure 151/80, mean arterial pressure of 103, respiratory rate , temperature 96.3. NEUROLOGIC: Patient is awake, alert, communicable. Left arm, she could able to lift 4/5. Weakness, left leg is like 3/5 weakness. Plantars are upgoing on both sides. SENSORY: She responds to pain. Otherwise extraocular movements and she understand the speech very well. When medically stable, patient can be extubated and physical therapy should be resumed. Continue DVT prophylaxis for now. Nasir Bellamy MD
[2017-11-29] MEDS: Mannitol 12.5 gm/50 ml Inj IV SCH ×3 (04:40→16:13)
[2017-11-29] MEDS: Piperacillin/Tazobact 3.375 GM in Sodium Chloride 0.9% 100 ML IVPB SCH ×4 (04:41→21:17)
[2017-11-29] MEDS: Dexamethasone 4 mg/1 ml IV SCH ×4 (04:41→21:22)
[2017-11-29 05:03] LABS: ABG ALLEN TEST YES; ARTERIAL BLOOD GAS HCO3 28.1 mmol/L (21-28); ARTERIAL BLOOD GAS HEMOGLOBIN 10.9 g/dL (11.7-17.4); ARTERIAL BLOOD GAS O2 CAPACITY 15.1 mL/dL (16-24); ARTERIAL BLOOD GAS O2 CONTENT 14.8 ML/dL (15-23); ARTERIAL BLOOD GAS O2 SAT 98.1 % (95-98); ARTERIAL BLOOD GAS PCO2 35 mm/Hg (35-45); ARTERIAL BLOOD GAS PO2 83 mm/Hg (80-100); ARTERIAL BLOOD GAS TCO2 28.4 mmol/L (22-28)
[2017-11-29] MEDS: Insulin Regular 100 units/ml SC SCH ×4 (06:36→21:21)
[2017-11-29 06:50] LABS: MEAN CORPUSCULAR HEMOGLOBIN 30.6 pg (27.0-31.0); MEAN CORPUSCULAR HGB CONC 32.5 g/dL (33.0-37.0); RBC 3.92 Mil/uL (3.80-5.20); RED CELL DISTRIBUTION WIDTH 15.6 % (11.5-14.5); WHITE BLOOD COUNT 11.6 K/uL (4.8-10.8)
[2017-11-29 07:06] LABS: ALBUMIN 3.3 g/dL (3.5-5.0); ALT/SGPT 78 U/L (9-52); AST/SGOT 44 U/L (14-36); BLOOD UREA NITROGEN 22 mg/dl (7-17); CALCIUM 9.9 mg/dL (8.4-10.2); GFR AFRICAN-AMERICAN > 60; GFR NON-AFRICAN AMERICAN 53
[2017-11-29] MEDS: levETIRAcetam 500 MG in Sodium Chloride 0.9% 100 ML IVPB SCH ×2 (08:16→21:16)
[2017-11-29] MEDS: Levothyroxine 100 mcg (0.1 mg) Inj IVP SCH (08:25)
--- NOTE | 2017-11-29 08:26 | CP.PCM.PN ---
<Garima Wilson - Last Filed: 11/29/17 11:44> Subjective - Date & Time of Evaluation Date of Evaluation: 11/29/17 Time of Evaluation: 08:23 - Subjective Subjective: PGY2 progress note for cardiology, Dr. Hathaway Pt seen and examined at bedside. No acute events overnight. Pt is s/p partial craniotomy with excision of tumor POD #1. Currently intubated on PRVC. Responding to verbal stimuli. ROS unobtainable due to intubation. Objective - Vital Signs/Intake and Output Vital Signs (last 24 hours): Temp Pulse Resp BP Pulse Ox 98.7 F 60 14 137/77 96 11/29/17 04:00 11/29/17 06:00 11/29/17 06:00 11/29/17 06:00 11/29/17 06:00 Intake and Output: 11/29/17 11/29/17 06:59 18:59 Intake Total 450 Output Total 500 Balance -50 - Medications Medications: Current Medications Acetaminophen (Tylenol 325mg Tab) 650 mg PO Q4 PRN PRN Reason: Headache Last Admin: 11/25/17 03:02 Dose: 650 mg Dexamethasone (Decadron Inj) 4 mg IV Q6 MARY ANN Last Admin: 11/29/17 04:41 Dose: 4 mg Piperacillin Sod/Tazobactam (Sod 3.375 gm/ Sodium Chloride) 100 mls @ 100 mls/ hr IVPB Q6 MARY ANN PRN Reason: Protocol Last Admin: 11/29/17 04:41 Dose: 100 mls/hr Vancomycin HCl 750 mg/ Sodium (Chloride) 250 mls @ 166.667 mls/hr IVPB Q12H MAR YANN PRN Reason: Protocol Last Admin: 11/28/17 20:35 Dose: 166.667 mls/hr Levetiracetam 500 mg/ Sodium (Chloride) 105 mls @ 210 mls/hr IVPB Q12 MARY ANN Last Admin: 11/29/17 08:16 Dose: 210 mls/hr Fentanyl Citrate 2,500 mcg/ (Dextrose) 250 mls @ 8.84 mls/hr IV .Q24H MARY ANN; 1 MCG/KG/HR PRN Reason: Protocol Last Titration: 11/29/17 05:54 Dose: 2.5 mcg/kg/hr, 22.11 mls/hr Insulin Human Regular (Humulin R) 0 units SC ACHS [facility] PRN Reason: Protocol Last Admin: 11/29/17 06:36 Dose: 2 units Levothyroxine Sodium (Synthroid) 60 mcg IVP DAILY [facility] Last Admin: 11/28/17 10:24 Dose: Not Given Magnesium Hydroxide (Milk Of Magnesia) 15 ml PO QID PRN PRN Reason: Constipation Last Admin: 11/25/17 20:22 Dose: 15 ml Mannitol (Mannitol) 25 gm IV Q6H [facility] Last Admin: 11/29/17 04:40 Dose: 25 gm Pantoprazole Sodium (Protonix Inj) 40 mg IVP DAILY [facility] Last Admin: 11/29/17 08:19 Dose: 40 mg - Labs Labs: 11/29/17 06:45 11/29/17 06:45 PT 11.4 Seconds (9.8-13.1) 11/28/17 05:15 INR 1.0 (0.9-1.2) 11/28/17 05:15 APTT 20.7 Seconds (25.6-37.1) L 11/28/17 05:15 - Constitutional Appears: Non-toxic, No Acute Distress - Head Exam Head Exam: ATRAUMATIC - ENT Exam ENT Exam: Mucous Membranes Moist - Respiratory Exam Respiratory Exam: Decreased Breath Sounds (on right lung ). absent: Accessory Muscle Use, Respiratory Distress (currently intubated on PRVC) - Cardiovascular Exam Cardiovascular Exam: REGULAR RHYTHM, +S1, +S2. absent: Gallop, Rubs, Murmur - GI/Abdominal Exam GI & Abdominal Exam: Soft, Normal Bowel Sounds. absent: Distended, Firm, Guarding, Rigid, Tenderness, Organomegaly - Extremities Exam Extremities Exam: absent: Pedal Edema, Tenderness - Neurological Exam Neurological Exam: Awake. 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 Per note, pt deferred chemotherapy Currently intubated on PRVC (5) Hypothyroid Continue synthroid Case will be discussed with attending, Dr. Hathaway. <Mateusz Hathaway - Last Filed: 11/29/17 22:57> Objective - Vital Signs/Intake and Output Vital Signs (last 24 hours): Temp Pulse Resp BP Pulse Ox 97.7 F 79 20 163/92 H 94 L 11/29/17 20:04 11/29/17 20:04 11/29/17 20:04 11/29/17 20:04 11/29/17 20:04 Intake and Output: 11/29/17 11/30/17 18:59 06:59 Intake Total 1245 Output Total 800 Balance 445 - Medications Medications: Current Medications Acetaminophen (Tylenol 325mg Tab) 650 mg PO Q4 PRN PRN Reason: Headache Last Admin: 11/25/17 03:02 Dose: 650 mg Bacitracin (Bacitracin Oint) 1 applic TOP BID MARY ANN Last Admin: 11/29/17 16:33 Dose: 1 applic Dexamethasone (Decadron Inj) 4 mg IV Q6 MARY ANN Last Admin: 11/29/17 21:22 Dose: 4 mg Piperacillin Sod/Tazobactam (Sod 3.375 gm/ Sodium Chloride) 100 mls @ 100 mls/ hr IVPB Q6 MARY ANN PRN Reason: Protocol Last Admin: 11/29/17 21:17 Dose: 100 mls/hr Vancomycin HCl 750 mg/ Sodium (Chloride) 250 mls @ 166.667 mls/hr IVPB Q12H [facility]ARY ANN PRN Reason: Protocol Last Admin: 11/29/17 21:20 Dose: 166.667 mls/hr Levetiracetam 500 mg/ Sodium (Chloride) 105 mls @ 210 mls/hr IVPB Q12 MARY ANN Last Admin: 11/29/17 21:16 Dose: 210 mls/hr Insulin Human Regular (Humulin R) 0 units SC ACHS [facility]ARY ANN PRN Reason: Protocol Last Admin: 11/29/17 21:21 Dose: Not Given Levothyroxine Sodium (Synthroid) 60 mcg IVP DAILY MARY ANN Last Admin: 11/29/17 08:25 Dose: 60 mcg Magnesium Hydroxide (Milk Of Magnesia) 15 ml PO QID PRN PRN Reason: Constipation Last Admin: 11/25/17 20:22 Dose: 15 ml Pantoprazole Sodium (Protonix Inj) 40 mg IVP DAILY [facility]ARY ANN Last Admin: 11/29/17 08:19 Dose: 40 mg - Labs Labs: 11/29/17 06:45 11/29/17 06:45 PT 11.4 Seconds (9.8-13.1) 11/28/17 05:15 INR 1.0 (0.9-1.2) 11/28/17 05:15 APTT 20.7 Seconds (25.6-37.1) L 11/28/17 05:15 Assessment and Plan (1) Preop cardiovascular exam Status: Acute (2) Anemia Status: Acute (3) Bleeding in brain Status: Acute (4) Lung cancer Status: Acute (5) Metastasis to brain Status: Acute (6) Stage 4 malignant neoplasm of lung Status: Acute Attending/Attestation - Attestation I have personally seen and examined this patient.: Yes I have fully participated in the care of the patient.: Yes I have reviewed all pertinent clinical information, including history, physical exam and plan: Yes
--- NOTE | 2017-11-29 08:56 | OP ---
DATE: 11/28/2017 PREOPERATIVE DIAGNOSIS: Large right occipitoparietal hemorrhagic mass. POSTOPERATIVE DIAGNOSIS: Large right occipitoparietal hemorrhagic mass. PROCEDURE: Right parietooccipital craniotomy, excisional biopsy, and decompression of mass. SURGEON: Brad Parekh MD. CEMENT BLOCK MAKER: Shade Wills MD. TYPE OF ANESTHESIA: General endotracheal. ESTIMATED BLOOD LOSS: 100 mL. COMPLICATIONS: None. JUSTIFICATION: The patient is an 82-year-old lady with advanced stage IV lung carcinoma, who presented to the ER somewhat after a fall with confusion, difficulty walking and a left hemibody deficit, was found to have mild left hemiparesis, left anayeli-sensory loss, and a significant field cut. MR imaging document is a hemorrhagic mass, most consistent with metastasis of blood in the right parietooccipital region. After much discussion with the patient and the family, we decided to proceed with operative extirpational biopsy. The nature of this procedure, the rationale behind it, alternatives, potential risks and complications were discussed with the family at length. All questions were answered. They fully understood and the patient agreed to proceed. DESCRIPTION OF PROCEDURE: The patient was taken to the operating room. She was intubated, anesthetized, and placed in [place] 3-point head fixator, she was placed on the OR table in a prone position on chest bolsters. It was fixed to the table in a somewhat elevated, but generally neutral position. The right occipitoparietal region was then hair-clipped, scrubbed with acetone, prepped and draped in the usual sterile fashion. The incision was localized using the MRI document, the ideal entrance as just off the midline, approximately 5 to 6 cm up from the inion. A lazy-S incision was traced out with it's ends at the mid point. The incision was made with a 10-blade knife and carried down to the level of the calvarium. Self-retaining Gelpi retractors were placed appropriately, was used to make ej holes in the anterior frontal extent of the skull calvarium. The dura was reflected off the inner table with a [place]. The craniotome was used to elevate this flap. Markedly tensed blue dura was encountered. This was then opened with a #15 blade, and then a Metzenbaum. Cortex was under so much pressure that it almost herniated through the most minimal opening. We reflected the dural leaflets back. The bipolar cautery was used to make a corticectomy, which we then headed anteriorly and medially. We almost immediately encountered liquefied hematoma, which was followed by maze hypervascular structures and some abnormal tissue. There was no well-defined cortex seen. Multiple specimens were taken with the pituitary rongeur. The bulk of the tumor was moved with suction bipolar technique. Multiple crossing vessels were coagulated and transected. In order to get a little bit more medial, we opened our initial craniotomy a little bit more medially, taking it to the fork and then removing more tumor. At this point, we inspected in a circumferential fashion all the surrounding cavity, which was noted to be mostly edematous white matter at this point in time. We assured general hemostasis with bipolar cautery and then packed the cavity with a mix of thrombinated powdered Gelfoam, Surgicel, and a cotton ball. We allowed this to sit several minutes and then removed it in order to confirm the hemostasis was complete. At this point we asked the anesthesiologist to raise the blood pressure to the normal 120 to 130 range and there was no bleeding encountered. We then reapproximated the dura with a couple of Nurolon sutures. We lined the entire cavity and exposed brain with Surgicel and then further covered the dural opening with thrombinated Gelfoam. The two bone flaps were reapproximated using a RapidFix plate and further RapidFix plates were used to secure the entire bone flap back to the surrounding calvarium. At this point, the wound was copiously irrigated with antibiotic solution. The galea was closed using interrupted inverted 2-0 Vicryl, the skin closed with levi. Bacitracin ointment and a self-securing dressing was placed. The patient was disconnected from table, turned back on to supine position on the ICU bed. Sanders was removed. She was then aroused from anesthesia. Noted to have her eyes opened. Pupils small and reactive. Moving all four extremities. Anesthesiologist recommended, because of her severe pulmonary disease, that we keep her intubated and extubate her in the ICU, thus she was brought directly over to ICU in stable fashion. All counts were correct. There were no complications. Brad Parekh MD [facility] # [id number]
--- NOTE | 2017-11-29 09:43 | CP.PCM.PN ---
Subjective - Date & Time of Evaluation Date of Evaluation: 11/29/17 Time of Evaluation: 09:44 - Subjective Subjective: S/P CRANIOTOMY AND EXCISSION OF TUMOR ON THE VENT Objective - Vital Signs/Intake and Output Vital Signs (last 24 hours): Temp Pulse Resp BP Pulse Ox 98.3 F 61 16 100/53 L 97 11/29/17 08:00 11/29/17 08:00 11/29/17 08:00 11/29/17 08:00 11/29/17 08:00 Intake and Output: 11/29/17 11/29/17 06:59 18:59 Intake Total 450 Output Total 500 Balance -50 - Medications Medications: Current Medications Acetaminophen (Tylenol 325mg Tab) 650 mg PO Q4 PRN PRN Reason: Headache Last Admin: 11/25/17 03:02 Dose: 650 mg Dexamethasone (Decadron Inj) 4 mg IV Q6 MARY ANN Last Admin: 11/29/17 04:41 Dose: 4 mg Piperacillin Sod/Tazobactam (Sod 3.375 gm/ Sodium Chloride) 100 mls @ 100 mls/ hr IVPB Q6 MARY ANN PRN Reason: Protocol Last Admin: 11/29/17 04:41 Dose: 100 mls/hr Vancomycin HCl 750 mg/ Sodium (Chloride) 250 mls @ 166.667 mls/hr IVPB Q12H MARY ANN PRN Reason: Protocol Last Admin: 11/29/17 08:35 Dose: 166.667 mls/hr Levetiracetam 500 mg/ Sodium (Chloride) 105 mls @ 210 mls/hr IVPB Q12 MARY ANN Last Admin: 11/29/17 08:16 Dose: 210 mls/hr Fentanyl Citrate 2,500 mcg/ (Dextrose) 250 mls @ 8.84 mls/hr IV .Q24H MARY ANN; 1 MCG/KG/HR PRN Reason: Protocol Last Titration: 11/29/17 05:54 Dose: 2.5 mcg/kg/hr, 22.11 mls/hr Insulin Human Regular (Humulin R) 0 units SC ACHS MARY ANN PRN Reason: Protocol Last Admin: 11/29/17 06:36 Dose: 2 units Levothyroxine Sodium (Synthroid) 60 mcg IVP DAILY [facility]ARY [facility] Last Admin: 11/29/17 08:25 Dose: 60 mcg Magnesium Hydroxide (Milk Of Magnesia) 15 ml PO QID PRN PRN Reason: Constipation Last Admin: 11/25/17 20:22 Dose: 15 ml Mannitol (Mannitol) 25 gm IV Q6H [facility] Last Admin: 11/29/17 04:40 Dose: 25 gm Pantoprazole Sodium (Protonix Inj) 40 mg IVP DAILY [facility] Last Admin: 11/29/17 08:19 Dose: 40 mg - Labs Labs: 11/29/17 06:45 11/29/17 06:45 PT 11.4 Seconds (9.8-13.1) 11/28/17 05:15 INR 1.0 (0.9-1.2) 11/28/17 05:15 APTT 20.7 Seconds (25.6-37.1) L 11/28/17 05:15 - Constitutional Appears: Chronically Ill - Head Exam Head Exam: ATRAUMATIC, NORMAL INSPECTION, NORMOCEPHALIC - Eye Exam Eye Exam: EOMI, Normal appearance, PERRL Pupil Exam: NORMAL ACCOMODATION, PERRL - ENT Exam ENT Exam: Mucous Membranes Moist, Normal Exam - Neck Exam Neck Exam: Full ROM, Normal Inspection. absent: Lymphadenopathy - Respiratory Exam Additional comments: ON THE VENT - Cardiovascular Exam Cardiovascular Exam: REGULAR RHYTHM, +S1, +S2. absent: Murmur - GI/Abdominal Exam GI & Abdominal Exam: Soft, Normal Bowel Sounds. absent: Tenderness - Rectal Exam Rectal Exam: NORMAL INSPECTION - Extremities Exam Extremities Exam: Full ROM, Normal Capillary Refill, Normal Inspection. absent : Joint Swelling, Pedal Edema - Back Exam Back Exam: NORMAL INSPECTION - Psychiatric Exam Psychiatric exam: Normal Affect, Normal Mood - Skin Skin Exam: Dry, Intact, Normal Color, Warm Assessment and Plan - Assessment and Plan (Free Text) Assessment: METASTATIC LUNG CANCER S/P CRAIOTOMY Plan: ATTEMPT TO EXTUBATE
--- NOTE | 2017-11-29 10:20 | CP.PCM.PN ---
Subjective - Date & Time of Evaluation Date of Evaluation: 11/29/17 Time of Evaluation: 10:00 - Subjective Subjective: S/p brain tumor excision Objective - Vital Signs/Intake and Output Vital Signs (last 24 hours): Temp Pulse Resp BP Pulse Ox 98.3 F 61 16 100/53 L 97 11/29/17 08:00 11/29/17 08:00 11/29/17 08:00 11/29/17 08:00 11/29/17 08:00 Intake and Output: 11/29/17 11/29/17 06:59 18:59 Intake Total 450 Output Total 500 Balance -50 - Medications Medications: Current Medications Acetaminophen (Tylenol 325mg Tab) 650 mg PO Q4 PRN PRN Reason: Headache Last Admin: 11/25/17 03:02 Dose: 650 mg Dexamethasone (Decadron Inj) 4 mg IV Q6 MARY ANN Last Admin: 11/29/17 09:58 Dose: 4 mg Piperacillin Sod/Tazobactam (Sod 3.375 gm/ Sodium Chloride) 100 mls @ 100 mls/ hr IVPB Q6 MARY ANN PRN Reason: Protocol Last Admin: 11/29/17 10:00 Dose: 100 mls/hr Vancomycin HCl 750 mg/ Sodium (Chloride) 250 mls @ 166.667 mls/hr IVPB Q12H MARY ANN PRN Reason: Protocol Last Admin: 11/29/17 08:35 Dose: 166.667 mls/hr Levetiracetam 500 mg/ Sodium (Chloride) 105 mls @ 210 mls/hr IVPB Q12 MARY ANN Last Admin: 11/29/17 08:16 Dose: 210 mls/hr Fentanyl Citrate 2,500 mcg/ (Dextrose) 250 mls @ 8.84 mls/hr IV .Q24H MARY ANN; 1 MCG/KG/HR PRN Reason: Protocol Last Titration: 11/29/17 05:54 Dose: 2.5 mcg/kg/hr, 22.11 mls/hr Insulin Human Regular (Humulin R) 0 units SC ACHS MARY ANN PRN Reason: Protocol Last Admin: 11/29/17 06:36 Dose: 2 units Levothyroxine Sodium (Synthroid) 60 mcg IVP DAILY [facility] Last Admin: 11/29/17 08:25 Dose: 60 mcg Magnesium Hydroxide (Milk Of Magnesia) 15 ml PO QID PRN PRN Reason: Constipation Last Admin: 11/25/17 20:22 Dose: 15 ml Mannitol (Mannitol) 25 gm IV Q6H [facility] Last Admin: 11/29/17 09:58 Dose: 25 gm Pantoprazole Sodium (Protonix Inj) 40 mg IVP DAILY [facility] Last Admin: 11/29/17 08:19 Dose: 40 mg - Labs Labs: 11/29/17 06:45 11/29/17 06:45 PT 11.4 Seconds (9.8-13.1) 11/28/17 05:15 INR 1.0 (0.9-1.2) 11/28/17 05:15 APTT 20.7 Seconds (25.6-37.1) L 11/28/17 05:15 - Head Exam Head Exam: ATRAUMATIC - Eye Exam Eye Exam: Normal appearance - ENT Exam ENT Exam: Mucous Membranes Dry - Respiratory Exam Respiratory Exam: NORMAL BREATHING PATTERN - Cardiovascular Exam Cardiovascular Exam: +S1, +S2 - GI/Abdominal Exam GI & Abdominal Exam: Normal Bowel Sounds Assessment and Plan (1) Metastasis to brain Assessment & Plan: s/p brain tumor excision f/u path Status: Acute (2) Lung cancer Assessment & Plan: stage IV deferred chemotherapy Status: Acute (3) Anemia Status: Acute
--- NOTE | 2017-11-29 10:35 | CP.PCM.PN ---
<Deisi Calvillo - Last Filed: 11/29/17 10:54> Subjective - Date & Time of Evaluation Date of Evaluation: 11/29/17 Time of Evaluation: 07:05 - Subjective Subjective: Patient seen and examined at bedside with attending- . Patient intubated , awake, alert, restless, moving upper extremities repeatedly and forcefully despite restraints, squeezing/pinching my hand, pulling on sheets and lines. Daughter at bedside states she would not like patient to be sedated and wants her to be extubated, discussed with daughter that the plan is for extubation once patient is weaned off the ventilator. Objective - Vital Signs/Intake and Output Vital Signs (last 24 hours): Temp Pulse Resp BP Pulse Ox 98.3 F 61 16 100/53 L 97 11/29/17 08:00 11/29/17 08:00 11/29/17 08:00 11/29/17 08:00 11/29/17 08:00 Intake and Output: 11/29/17 11/29/17 06:59 18:59 Intake Total 450 Output Total 500 Balance -50 - Medications Medications: Current Medications Acetaminophen (Tylenol 325mg Tab) 650 mg PO Q4 PRN PRN Reason: Headache Last Admin: 11/25/17 03:02 Dose: 650 mg Dexamethasone (Decadron Inj) 4 mg IV Q6 MARY ANN Last Admin: 11/29/17 09:58 Dose: 4 mg Piperacillin Sod/Tazobactam (Sod 3.375 gm/ Sodium Chloride) 100 mls @ 100 mls/ hr IVPB Q6 MARY ANN PRN Reason: Protocol Last Admin: 11/29/17 10:00 Dose: 100 mls/hr Vancomycin HCl 750 mg/ Sodium (Chloride) 250 mls @ 166.667 mls/hr IVPB Q12H MARY ANN PRN Reason: Protocol Last Admin: 11/29/17 08:35 Dose: 166.667 mls/hr Levetiracetam 500 mg/ Sodium (Chloride) 105 mls @ 210 mls/hr IVPB Q12 MARY ANN Last Admin: 11/29/17 08:16 Dose: 210 mls/hr Fentanyl Citrate 2,500 mcg/ (Dextrose) 250 mls @ 8.84 mls/hr IV .Q24H MARY ANN; 1 MCG/KG/HR PRN Reason: Protocol Last Titration: 11/29/17 05:54 Dose: 2.5 mcg/kg/hr, 22.11 mls/hr Insulin Human Regular (Humulin R) 0 units SC ACHS MARY ANN PRN Reason: Protocol Last Admin: 11/29/17 06:36 Dose: 2 units Levothyroxine Sodium (Synthroid) 60 mcg IVP DAILY [facility] Last Admin: 11/29/17 08:25 Dose: 60 mcg Magnesium Hydroxide (Milk Of Magnesia) 15 ml PO QID PRN PRN Reason: Constipation Last Admin: 11/25/17 20:22 Dose: 15 ml Mannitol (Mannitol) 25 gm IV Q6H [facility] Last Admin: 11/29/17 09:58 Dose: 25 gm Pantoprazole Sodium (Protonix Inj) 40 mg IVP DAILY [facility] Last Admin: 11/29/17 08:19 Dose: 40 mg - Labs Labs: 11/29/17 06:45 11/29/17 06:45 PT 11.4 Seconds (9.8-13.1) 11/28/17 05:15 INR 1.0 (0.9-1.2) 11/28/17 05:15 APTT 20.7 Seconds (25.6-37.1) L 11/28/17 05:15 - Constitutional Appears: Combative - Eye Exam Eye Exam: EOMI, PERRL - ENT Exam ENT Exam: Mucous Membranes Moist - Neck Exam Neck Exam: Full ROM - Respiratory Exam Respiratory Exam: absent: Respiratory Distress (intubated) Additional comments: intubated - Cardiovascular Exam Cardiovascular Exam: REGULAR RHYTHM, +S1, +S2 - GI/Abdominal Exam GI & Abdominal Exam: Soft (obese), Normal Bowel Sounds. absent: Tenderness - Extremities Exam Extremities Exam: Full ROM (strength 5/5, restraints in place) - Neurological Exam Neurological Exam: Alert, Awake - Psychiatric Exam Psychiatric exam: Agitated - Skin Skin Exam: Dry, Normal Color, Warm Assessment and Plan - Assessment and Plan (Free Text) Assessment: 1. Hemorrhagic Brain Metastasis -POD # 1 s/p parietal craniotomy and tumor resection -CT Head: Hemorrhagic posterior right parietal/occipital mass and surrounding vasogenic edema consistent with neoplasm; probable small incidental meningioma -s/p :Decadron, Mannitol, Keppra 500mg IVP Q12 -11/24/17 MRI head: elliptical shaped hemorrhagic lesion in right posterior parieto-occipital watershed zone surrounded by vasogenic edema and together they exert considerable surrounding mass effect. -Neuro surgery on consult appreciated: POD #1 s/p tumor resection -Neurology on consult appreciated: Dr. Bellamy: agree with current management, will follow patient -Cardiology consult appreciated: Dr. Hathaway: patient is moderate risk for radha- operative cardiac event - Neuro checks 2. Stage IV Lung cancer -diagnosed 06/2017; s/p radiotherapy -CT Chest:Large pleural-based mass extending from the right apex posteriorly almost to the lung base; right pleural effusion with large subpulmonic component ; atelectatic changes in the right lung greatest in the right lower lobe; mediastinal and right hilar adenopathy not optimally evaluated; age indeterminate posterior right seventh rib fracture - Pulmonology consult appreciated - Conservative/Palliative management - Pain management -Heme/Onc consult appreciated: chemotherapy deferred, on homeopathic treatment, may want immunotherapy in the future 3. Hypothyroidism - Synthroid 60mcg IVP daily 4. Diabetic Mellitus type 2 -controlled, HbA1c 7.4 - hypoglycemia protocol in place -POC glucose slightly elevated due to IV steroid treatments and D5 IV fluid -Regular Insulin low dose protocol coverage scale -SC ACHS 5. DVT Prophylaxis -SCD's 6.GI prophylaxis - Pantoprazole 40mg IVP QD <Pedro Snyder - Last Filed: 12/05/17 12:30> Objective - Vital Signs/Intake and Output Vital Signs (last 24 hours): Temp Pulse Resp BP Pulse Ox 97.3 F L 91 H 20 127/76 93 L 12/05/17 12:22 12/05/17 12:22 12/05/17 12:22 12/05/17 12:22 12/05/17 12:22 - Medications Medications: Current Medications Acetaminophen (Tylenol 325mg Tab) 650 mg PO Q4 PRN PRN Reason: Headache Last Admin: 12/03/17 15:03 Dose: 650 mg Albuterol Sulfate (Albuterol 0.083% Inhal [place] (2.5 Mg/3 Ml) Ud) 2.5 mg INH RQID [facility] Last Admin: 12/05/17 11:06 Dose: 2.5 mg Atorvastatin Calcium (Lipitor) 10 mg PO HS [facility] Last Admin: 12/04/17 23:23 Dose: Not Given Bacitracin (Bacitracin Oint) 1 applic TOP BID [facility] Last Admin: 12/05/17 09:11 Dose: 1 applic Levetiracetam 500 mg/ Sodium (Chloride) 105 mls @ 210 mls/hr IVPB Q12 [facility] Last Admin: 12/05/17 09:09 Dose: 210 mls/hr Vancomycin HCl 750 mg/ Sodium (Chloride) 250 mls @ 166.667 mls/hr IVPB Q12H [facility]ARY ANN PRN Reason: Protocol Last Admin: 12/05/17 11:34 Dose: Not Given Insulin Human Regular (Humulin R) 0 units SC ACHS MARY ANN PRN Reason: Protocol Last Admin: 12/05/17 10:58 Dose: Not Given Levothyroxine Sodium (Levothyroxine) 60 mcg IVP DAILY [facility] Last Admin: 12/05/17 09:09 Dose: 60 mcg Magnesium Hydroxide (Milk Of Magnesia) 15 ml PO QID PRN PRN Reason: Constipation Last Admin: 12/02/17 21:31 Dose: 15 ml Methylprednisolone (Solu-Medrol) 40 mg IV Q12H [facility] Last Admin: 12/05/17 06:50 Dose: Not Given Pantoprazole Sodium (Protonix Inj) 40 mg IVP DAILY [facility] Last Admin: 12/05/17 09:10 Dose: 40 mg - Labs Labs: 12/04/17 08:24 12/04/17 08:24 PT 11.4 Seconds (9.8-13.1) 11/28/17 05:15 INR 1.0 (0.9-1.2) 11/28/17 05:15 APTT 20.7 Seconds (25.6-37.1) L 11/28/17 05:15 Assessment and Plan - Assessment and Plan (Free Text) Assessment: Patient was personally seen and examined by me in rounds with residents. Available labs and diagnostic data reviewed. Case, Patient's condition and management plan discussed with residents in rounds. Agree with resident's progress note. Plan: As ordered.
--- NOTE | 2017-11-29 11:09 | PCM.PROC ---
Procedures Attestation:: I certify that I have explained the specified Operation(s) or Procedure(s), risks, benefits and reasonable alternatives to the Patient and/or other person responsible. The opportunity was given to ask questions and all questions answered - Extubation Clinical Parameters: Hemodynamically Stable, Intact Cough/Gag Reflex, Spontaneous Respirations, Acceptable Vent Settings (FIO2<50%, PEEP<8, PaO2>75, pH>7.25) Weaning Criteria Met: Yes General Weaning Approaches: Pressure Support Ventilation (PSV) Weaning Patient Condition: Patient has been successfully extubated and assessed Oxygen Therapy: O2 via Venti Mask Patient Tolerated Procedure: Well, No Complications
--- NOTE | 2017-11-29 11:29 | CARD ---
APPROVED REPORT EKG Measurement Heart [id number] <Conclusion> Normal sinus rhythm Low voltage QRS Borderline ECG
--- NOTE | 2017-11-29 11:36 | CP.CCUPN ---
CCU Subjective - Physician Review Subjective (Free Text): Remains orally intubated from post-op status yesterday, with immediate transfer to ICU post surgery, kept intubated overnight. Daughter at the bedside, was on sedation, now off for several hours, nods yes to simple commands and is agitated with attempts to self extubate. Re-oriented and compliant now with assistance from daughter in calming the patient. Tolerated CPAP PS trial with Fio2 at 45%. Subsequently extubated without difficulty and ETT removed without any immediate stridor or distress. Denies any new or worse head pain, wound pain, nausea, dizziness, visual changes nor any new focal deficits. Other vitals and I/O's reviewed. No fever spikes noted. ROS: No other pertinent negs or positives on 10+ system review. PMSFH: All other Nursing and physician documentation reviewed to date; no new pertinent info noted relevant to current medical problems. CXR: (my interp)- ETT position Ok above aryan, essentially unchanged from previous films on 11/26, and . IMPRESSION / MAJOR PROBLEMS NOW: 1. POD # 1 2 craniotomy for decompression of hemorrhagic mass and biopsy. 2. Acute Resp Insuff on MV support post-op 3. Metastatic Right Lung CA 4. Uncontrolled DM II PLAN: 1. Extubated, monitor resp status, especially regarding need for any re- intubation, though appears stable now. Should re-clarify Code status and Intubation status. 2. On Decadron, Mannitol, Keppra. Check Serum Osmolarity. 3. Improve glycemic control, justyna while on IV steroids. 4. Empiric Zosyn / Vanco coverage noted. 5. Pall Care eval. CCU Objective - Vital Signs / Intake & Output Vital Signs (Last 4 hours): Vital Signs Temp Pulse Resp BP Pulse Ox 11/29/17 08:00 98.3 F 61 16 100/53 L 97 Intake and Output (Last 8hrs): Intake & Output 11/28/17 11/29/17 11/29/17 22:59 06:59 14:59 Intake Total 550 100 645 Output Total 500 500 200 Balance 50 -400 445 Intake: IV 200 0 645 Intake, Piggyback 350 100 Output: Urine 500 500 200 Urethral (Baker) 500 500 200 - Physical Exam Head: Negative for: Tenderness, Contusion, Swelling Pupils: Positive for: PERRL, Other (R Ptosis- old). Negative for: Sluggish, Non -Reactive Conjunctiva: Positive for: Normal. Negative for: Injected, Icteric Mouth: Positive for: Moist Mucous Membranes Nose (Internal): Positive for: Normal Inspection Neck: Positive for: Normal Range of Motion, Trachea Midline. Negative for: Meningeal Signs, MIDLINE TENDERNESS, Paraspinal Tenderness, JVD, Lymphadenopathy , Bruit, Other Respiratory/Chest: Positive for: Good Air Exchange, Decreased Breath Sounds ( right side), Rhonchi. Negative for: Respiratory Distress, Accessory Muscle Use , Wheezes, Rales, Retracting Cardiovascular: Positive for: Regular Rate and Rhythm, Normal S1, S2, Peripheal Pulses Present. Negative for: Murmurs, Irregular Rhythm, Bradycardic, Rub Abdomen: Positive for: Normal Bowel Sounds. Negative for: Tenderness, Distention, Mass/Organomegaly Upper Extremity: Positive for: Normal Inspection, NORMAL PULSES, Capillary Refill < 2s. Negative for: Cyanosis, Edema Lower Extremity: Positive for: Normal Inspection, NORMAL PULSES, Capillary Refill < 2 s. Negative for: Edema, CALF TENDERNESS Skin: Positive for: Warm, Dry. Negative for: Rashes - Medications Active Medications: Active Medications Generic Name Dose Route Start Last Admin Trade Name Freq PRN Reason Stop Dose Admin Acetaminophen 650 mg 11/25/17 02:54 11/25/17 03:02 Tylenol 325mg Tab PO 650 mg Q4 PRN Administration Headache Dexamethasone 4 mg 11/24/17 16:00 11/29/17 09:58 Decadron Inj IV 4 mg Q6 MARY ANN Administration Piperacillin Sod/Tazobactam 100 mls @ 100 mls/hr 11/24/17 10:00 11/29/17 10: 00 Sod 3.375 gm/ Sodium Chloride IVPB 100 mls/hr Q6 MARY ANN Administration Protocol Vancomycin HCl 750 mg/ Sodium 250 mls @ 166.667 mls/hr 11/24/17 08:30 08:35 Chloride IVPB 166.667 mls/hr Q12H MARY ANN Administration Protocol Levetiracetam 500 mg/ Sodium 105 mls @ 210 mls/hr 11/27/17 21:00 11/29/17 08: 16 Chloride IVPB 210 mls/hr Q12 MARY ANN Administration Insulin Human Regular 0 units 11/25/17 22:00 11/29/17 06:36 Humulin R SC 2 units ACHS MARY ANN Administration Protocol Levothyroxine Sodium 60 mcg 11/25/17 09:00 11/29/17 08:25 Synthroid IVP 60 mcg DAILY MARY ANN Administration Magnesium Hydroxide 15 ml 11/25/17 20:08 11/25/17 20:22 Milk Of Magnesia PO 15 ml QID PRN Administration Constipation Mannitol 25 gm 11/27/17 15:30 11/29/17 09:58 Mannitol IV 25 gm Q6H MARY ANN Administration Pantoprazole Sodium 40 mg 11/24/17 09:00 11/29/17 08:19 Protonix Inj IVP 40 mg DAILY MARY ANN Administration - Patient Studies Lab Studies: Lab Studies 11/29/17 11/29/17 11/29/17 Range/Units 06:45 06:45 04:53 WBC 11.6 H D (4.8-10.8) K/uL RBC 3.92 (3.80-5.20) Mil/uL Hgb 12.0 (12.0-16.0) g/dL Hct 36.8 (34.0-47.0) % MCV 94.0 (81.0-99.0) fl MCH 30.6 (27.0-31.0) pg MCHC 32.5 L (33.0-37.0) g/dL RDW 15.6 H (11.5-14.5) % Plt Count 290 (130-400) K/uL pCO2 35 (35-45) mm/Hg pO2 83 (80-100) mm/Hg HCO3 28.1 H (21-28) mmol/L ABG pH 7.50 H (7.35-7.45) ABG Total CO2 28.4 H (22-28) mmol/L ABG O2 Saturation 98.1 H (95-98) % ABG O2 Content 14.8 L (15-23) ML/dL ABG Base Excess 4.1 H (-2.0-3.0) mmol/L ABG Hemoglobin 10.9 L (11.7-17.4) g/dL ABG Carboxyhemoglobin 1.1 (0.5-1.5) % POC ABG HHb (Measured) 1.9 (0.0-5.0) % ABG Methemoglobin 1.0 (0.0-3.0) % ABG O2 Capacity 15.1 L (16-24) mL/dL Osito Test Yes A-a O2 Difference 301.0 mm/Hg Hgb O2 Saturation 96.0 (95.0-98.0) % Vent Mode Prvc ac Mechanical Rate 14 FiO2 60.0 % Tidal Volume 450 PEEP 5 Sodium 135 (132-148) mmol/l Potassium 3.7 (3.6-5.0) MMOL/L Chloride 99 (98-107) mmol/L Carbon Dioxide 26 (22-30) mmol/L Anion Gap 14 (10-20) BUN 22 H (7-17) mg/dl Creatinine 1.0 (0.7-1.2) mg/dl Est GFR ( Amer) > 60 Est GFR (Non-Af Amer) 53 POC Glucose (mg/dL) (65-110) mg/dL Random Glucose 270 H (65-105) mg/dL Calcium 9.9 (8.4-10.2) mg/dL Total Bilirubin 0.5 (0.2-1.3) mg/dl AST 44 H (14-36) U/L ALT 78 H D (9-52) U/L Alkaline Phosphatase 96 (38-126) U/L Total Protein 6.6 (6.3-8.2) G/DL Albumin 3.3 L (3.5-5.0) g/dL Globulin 3.3 (2.2-3.9) gm/dL Albumin/Globulin Ratio 1.0 (1.0-2.1) 11/29/17 11/28/17 11/28/17 Range/Units 04:39 21:58 16:36 WBC (4.8-10.8) K/uL RBC (3.80-5.20) Mil/uL Hgb (12.0-16.0) g/dL Hct (34.0-47.0) % MCV (81.0-99.0) fl MCH (27.0-31.0) pg MCHC (33.0-37.0) g/dL RDW (11.5-14.5) % Plt Count (130-400) K/uL pCO2 (35-45) mm/Hg pO2 (80-100) mm/Hg HCO3 (21-28) mmol/L ABG pH (7.35-7.45) ABG Total CO2 (22-28) mmol/L ABG O2 Saturation (95-98) % ABG O2 Content (15-23) ML/dL ABG Base Excess (-2.0-3.0) mmol/L ABG Hemoglobin (11.7-17.4) g/dL ABG Carboxyhemoglobin (0.5-1.5) % POC ABG HHb (Measured) (0.0-5.0) % ABG Methemoglobin (0.0-3.0) % ABG O2 Capacity (16-24) mL/dL Osito Test A-a O2 Difference mm/Hg Hgb O2 Saturation (95.0-98.0) % Vent Mode Mechanical Rate FiO2 % Tidal Volume PEEP Sodium (132-148) mmol/l Potassium (3.6-5.0) MMOL/L Chloride (98-107) mmol/L Carbon Dioxide (22-30) mmol/L Anion Gap (10-20) BUN (7-17) mg/dl Creatinine (0.7-1.2) mg/dl Est GFR ( Amer) Est GFR (Non-Af Amer) POC Glucose (mg/dL) 246 H 292 H 280 H (65-110) mg/dL Random Glucose (65-105) mg/dL Calcium (8.4-10.2) mg/dL Total Bilirubin (0.2-1.3) mg/dl AST (14-36) U/L ALT (9-52) U/L Alkaline Phosphatase (38-126) U/L Total Protein (6.3-8.2) G/DL Albumin (3.5-5.0) g/dL Globulin (2.2-3.9) gm/dL Albumin/Globulin Ratio (1.0-2.1) Laboratory Results - last 24 hr 11/28/17 11/28/17 11/29/17 16:36 21:58 04:39 WBC RBC Hgb Hct MCV MCH MCHC RDW Plt Count pCO2 pO2 HCO3 ABG pH ABG Total CO2 ABG O2 Saturation ABG O2 Content ABG Base Excess ABG Hemoglobin ABG Carboxyhemoglobin POC ABG HHb (Measured) ABG Methemoglobin ABG O2 Capacity Osito Test A-a O2 Difference Hgb O2 Saturation Vent Mode Mechanical Rate FiO2 Tidal Volume PEEP Sodium Potassium Chloride Carbon Dioxide Anion Gap BUN Creatinine Est GFR ( Amer) Est GFR (Non-Af Amer) POC Glucose (mg/dL) 280 H 292 H 246 H Random Glucose Calcium Total Bilirubin AST ALT Alkaline Phosphatase Total Protein Albumin Globulin Albumin/Globulin Ratio 11/29/17 11/29/17 11/29/17 04:53 06:45 06:45 WBC 11.6 H D RBC 3.92 Hgb 12.0 Hct 36.8 MCV 94.0 MCH 30.6 MCHC 32.5 L RDW 15.6 H Plt Count 290 pCO2 35 pO2 83 HCO3 28.1 H ABG pH 7.50 H ABG Total CO2 28.4 H ABG O2 Saturation 98.1 H ABG O2 Content 14.8 L ABG Base Excess 4.1 H ABG Hemoglobin 10.9 L ABG Carboxyhemoglobin 1.1 POC ABG HHb (Measured) 1.9 ABG Methemoglobin 1.0 ABG O2 Capacity 15.1 L Osito Test Yes A-a O2 Difference 301.0 Hgb O2 Saturation 96.0 Vent Mode Prvc ac Mechanical Rate 14 FiO2 60.0 Tidal Volume 450 PEEP 5 Sodium 135 Potassium 3.7 Chloride 99 Carbon Dioxide 26 Anion Gap 14 BUN 22 H Creatinine 1.0 Est GFR ( Amer) > 60 Est GFR (Non-Af Amer) 53 POC Glucose (mg/dL) Random Glucose 270 H Calcium 9.9 Total Bilirubin 0.5 AST 44 H ALT 78 H D Alkaline Phosphatase 96 Total Protein 6.6 Albumin 3.3 L Globulin 3.3 Albumin/Globulin Ratio 1.0 Radiology Interpretations (Free Text): See Above. Fingerstick Blood Sugar Results: 246 Review of Systems - Review of Systems All systems: reviewed and no additional remarkable complaints except (as above.) Critical Care Progress Note - Nutrition Nutrition: Nutrition Category Date Time Status Consistent Carbohydrate [DIET] Diets 11/25/17 Breakfast Active
--- NOTE | 2017-11-29 12:08 | RAD ---
PROCEDURE: CHEST RADIOGRAPH, 1 VIEW HISTORY: Intubated. COMPARISON: Chest portable 11/28/2017 at 2:[address] Chest abdomen and pelvic report 11/23/2017 noted FINDINGS: LUNGS: No interval left lung pathology suggested The shallow left lung volume appears clear Shallow right lung volume re- demonstrated. The extensive hazy coalescent opacity over the right anayeli thorax suggests some minimal partial clearing in this patient with known right lung cancer and other right pleural parenchymal infiltrates and/or atelectasis and or neoplastic changes please note the CT findings. Right perihilar postsurgical changes suggested PLEURA: No pneumothorax Right pleural effusion noted. Probably slightly less than before CARDIOVASCULAR: Top-normal heart size probable right paratracheal/superior mediastinal lymphadenopathy -similar-appearing OSSEOUS STRUCTURES: Thoracic spondylosis. CT referenced fractures which are difficult to appreciate on this exam. - CT be more sensitive in this regards. VISUALIZED UPPER ABDOMEN: Normal. OTHER FINDINGS: Endotracheal tube tip approximately 1.6 cm from the aryan. Right PICC line tip cavoatrial junction. Additional tubing probably extrinsic to patient projecting over the inferior left axilla an additional crisscrossing EKG like lead suggestive over the chest IMPRESSION: Known advanced right lung cancer. Interval improved patchy aeration of the prior coalescing airspace opacities in the right lung. Right paramediastinal lymphadenopathy [id number] Support lines tubes as above. Smaller right pleural effusion.
--- NOTE | 2017-11-29 13:19 | CP.PCM.PN ---
Subjective - Date & Time of Evaluation Date of Evaluation: 11/29/17 Time of Evaluation: 13:16 - Subjective Subjective: POD 1 extubated doing well a a o x 3 follows all commands good strength throughout L side good sens on L wound c and d P OOB PT OT await path Objective - Vital Signs/Intake and Output Vital Signs (last 24 hours): Temp Pulse Resp BP Pulse Ox 97.8 F 81 18 141/72 95 11/29/17 12:00 11/29/17 12:00 11/29/17 12:00 11/29/17 12:00 11/29/17 12:00 Intake and Output: 11/29/17 11/29/17 06:59 18:59 Intake Total 450 645 Output Total 500 400 Balance -50 245 - Medications Medications: Current Medications Acetaminophen (Tylenol 325mg Tab) 650 mg PO Q4 PRN PRN Reason: Headache Last Admin: 11/25/17 03:02 Dose: 650 mg Dexamethasone (Decadron Inj) 4 mg IV Q6 [facility] Last Admin: 11/29/17 09:58 Dose: 4 mg Piperacillin Sod/Tazobactam (Sod 3.375 gm/ Sodium Chloride) 100 mls @ 100 mls/ hr IVPB Q6 MARY ANN PRN Reason: Protocol Last Admin: 11/29/17 10:00 Dose: 100 mls/hr Vancomycin HCl 750 mg/ Sodium (Chloride) 250 mls @ 166.667 mls/hr IVPB Q12H MARY ANN PRN Reason: Protocol Last Admin: 11/29/17 08:35 Dose: 166.667 mls/hr Levetiracetam 500 mg/ Sodium (Chloride) 105 mls @ 210 mls/hr IVPB Q12 MARY ANN Last Admin: 11/29/17 08:16 Dose: 210 mls/hr Insulin Human Regular (Humulin R) 0 units SC ACHS MARY ANN PRN Reason: Protocol Last Admin: 11/29/17 11:47 Dose: 2 units Levothyroxine Sodium (Synthroid) 60 mcg IVP DAILY [facility] Last Admin: 11/29/17 08:25 Dose: 60 mcg Magnesium Hydroxide (Milk Of Magnesia) 15 ml PO QID PRN PRN Reason: Constipation Last Admin: 11/25/17 20:22 Dose: 15 ml Mannitol (Mannitol) 25 gm IV Q6H [facility] Last Admin: 11/29/17 09:58 Dose: 25 gm Pantoprazole Sodium (Protonix Inj) 40 mg IVP DAILY MARY ANN Last Admin: 11/29/17 08:19 Dose: 40 mg - Labs Labs: 11/29/17 06:45 11/29/17 06:45 PT 11.4 Seconds (9.8-13.1) 11/28/17 05:15 INR 1.0 (0.9-1.2) 11/28/17 05:15 APTT 20.7 Seconds (25.6-37.1) L 11/28/17 05:15
[2017-11-29 15:24] LABS: HDL CHOLESTEROL 53 MG/DL (30-70)
[2017-11-29 15:35] LABS: LDL CHOLESTEROL 121 mg/dL (0-129)
[2017-11-29] MEDS: Bacitracin OINT 15GM TOP SCH (16:33)
[2017-11-30] MEDS: Dexamethasone 4 mg/1 ml IV SCH ×4 (04:57→21:54)
[2017-11-30] MEDS: Piperacillin/Tazobact 3.375 GM in Sodium Chloride 0.9% 100 ML IVPB SCH ×4 (04:57→21:53)
[2017-11-30 05:26] LABS: BASO % 0.3 % (0.0-2.0); EOS % 0.1 % (0.0-4.0); HEMOGLOBIN 11.8 g/dL (12.0-16.0); LYMPH # 0.6 K/uL (1.0-4.3); LYMPH % 5.4 % (20.0-40.0); MEAN CELL VOLUME 94.4 fl (81.0-99.0); MEAN CORPUSCULAR HEMOGLOBIN 31.2 pg (27.0-31.0); MEAN CORPUSCULAR HGB CONC 33.1 g/dL (33.0-37.0); MEAN PLATELET VOLUME 8.9 fl (7.2-11.7); MONO # 0.6 K/uL (0.0-0.8); MONO % 5.7 % (0.0-10.0); NEUT # 9.6 K/uL (1.8-7.0); NEUT % 88.5 % (50.0-75.0); PLATELET COUNT 288 K/uL (130-400); RBC 3.78 Mil/uL (3.80-5.20); RED CELL DISTRIBUTION WIDTH 15.6 % (11.5-14.5); WHITE BLOOD COUNT 10.8 K/uL (4.8-10.8)
[2017-11-30 05:56] LABS: ALBUMIN 3.4 g/dL (3.5-5.0); ALT/SGPT 66 U/L (9-52); AST/SGOT 40 U/L (14-36); BLOOD UREA NITROGEN 24 mg/dl (7-17); GFR AFRICAN-AMERICAN > 60; GFR NON-AFRICAN AMERICAN > 60
[2017-11-30] MEDS: Insulin Regular 100 units/ml SC SCH ×4 (07:51→21:52)
--- NOTE | 2017-11-30 09:12 | CP.PCM.PN ---
<Garima Wilson - Last Filed: 11/30/17 09:09> Subjective - Date & Time of Evaluation Date of Evaluation: 11/30/17 Time of Evaluation: 09:09 - Subjective Subjective: PGY2 progress note for cardiology, Dr. Hathaway Pt seen and examined at bedside. Pt anxious this morning. stated that she was unable to sleep throughout the night. This morning, pt complained of chest tightness with difficulty breathing. Stat EKG, CXR and troponin done. Pt given nitro SL with some improvement of chest tightness but pt continued to c/o SOB. EKG was NSR, CXR unchanged from yesterday, troponin was negative. Pt was on NC sating at 95%. Nurse and daughter were at bedside. Per nurse, pt had argument with daughter a few times overnight which could have contributed to the anxiety. Pt denies having any DUKES, abd pain, N/V/D/C, F/C. Objective - Vital Signs/Intake and Output Vital Signs (last 24 hours): Temp Pulse Resp BP Pulse Ox 97.9 F 74 18 151/81 H 92 L 11/30/17 07:47 11/30/17 07:47 11/30/17 07:47 11/30/17 07:47 11/30/17 07:47 - Medications Medications: Current Medications Acetaminophen (Tylenol 325mg Tab) 650 mg PO Q4 PRN PRN Reason: Headache Last Admin: 11/25/17 03:02 Dose: 650 mg Atorvastatin Calcium (Lipitor) 10 mg PO DAILY [facility] Bacitracin (Bacitracin Oint) 1 applic TOP BID [facility] Last Admin: 11/29/17 16:33 Dose: 1 applic Dexamethasone (Decadron Inj) 4 mg IV Q6 [facility] Last Admin: 11/30/17 04:57 Dose: 4 mg Piperacillin Sod/Tazobactam (Sod 3.375 gm/ Sodium Chloride) 100 mls @ 100 mls/ hr IVPB Q6 MARY ANN PRN Reason: Protocol Last Admin: 11/30/17 04:57 Dose: 100 mls/hr Vancomycin HCl 750 mg/ Sodium (Chloride) 250 mls @ 166.667 mls/hr IVPB Q12H MARY ANN PRN Reason: Protocol Last Admin: 11/29/17 21:20 Dose: 166.667 mls/hr Levetiracetam 500 mg/ Sodium (Chloride) 105 mls @ 210 mls/hr IVPB Q12 MARY ANN Last Admin: 11/29/17 21:16 Dose: 210 mls/hr Insulin Human Regular (Humulin R) 0 units SC ACHS MARY ANN PRN Reason: Protocol Levothyroxine Sodium (Synthroid) 60 mcg IVP DAILY [facility] Last Admin: 11/29/17 08:25 Dose: 60 mcg Magnesium Hydroxide (Milk Of Magnesia) 15 ml PO QID PRN PRN Reason: Constipation Last Admin: 11/25/17 20:22 Dose: 15 ml Pantoprazole Sodium (Protonix Inj) 40 mg IVP DAILY [facility] Last Admin: 11/29/17 08:19 Dose: 40 mg - Labs Labs: 11/30/17 05:20 11/30/17 05:20 PT 11.4 Seconds (9.8-13.1) 11/28/17 05:15 INR 1.0 (0.9-1.2) 11/28/17 05:15 APTT 20.7 Seconds (25.6-37.1) L 11/28/17 05:15 - Constitutional Appears: Non-toxic - Head Exam Head Exam: ATRAUMATIC Additional comments: levi in place on scalp. no hematoma or erythema noted in area - ENT Exam ENT Exam: Mucous Membranes Moist - Respiratory Exam Respiratory Exam: Decreased Breath Sounds (right lung ), Clear to Ausculation Bilateral. absent: Rales, Rhonchi, Wheezes - Cardiovascular Exam Cardiovascular Exam: REGULAR RHYTHM, +S1, +S2. absent: Gallop, Rubs, Murmur - GI/Abdominal Exam GI & Abdominal Exam: Soft, Normal Bowel Sounds. 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 Per note, pt deferred chemotherapy NC 2 L sating at 95% (3) Chest pressure r/o ACS Initial troponin and EKG were normal Will repeat troponin and EKG in 6 hour Echo done prior to craniotomy showed EF of 45-50% and was normal (4) DM HgbA1c is 7.4 Currently pt is on medium dose ISS Started pt on lipitor Will consider adding ACEI once cleared by neurosx for stricter BP control Case will be discussed with attending, Dr. Hathaway. <Mateusz Hathaway - Last Filed: 11/30/17 12:08> Objective - Vital Signs/Intake and Output Vital Signs (last 24 hours): Temp Pulse Resp BP Pulse Ox 97.9 F 73 18 158/86 H 97 11/30/17 12:01 11/30/17 12:01 11/30/17 12:01 11/30/17 12:01 11/30/17 12:01 - Medications Medications: Current Medications Acetaminophen (Tylenol 325mg Tab) 650 mg PO Q4 PRN PRN Reason: Headache Last Admin: 11/25/17 03:02 Dose: 650 mg Albuterol/Ipratropium (Duoneb 3 Mg/0.5 Mg (3 Ml) Ud) 3 ml INH RQID MARY ANN Atorvastatin Calcium (Lipitor) 10 mg PO HS MARY ANN Bacitracin (Bacitracin Oint) 1 applic TOP BID [facility] Last Admin: 11/30/17 10:25 Dose: 1 applic Dexamethasone (Decadron Inj) 4 mg IV Q6 [facility] Last Admin: 11/30/17 10:24 Dose: 4 mg Piperacillin Sod/Tazobactam (Sod 3.375 gm/ Sodium Chloride) 100 mls @ 100 mls/ hr IVPB Q6 MARY ANN PRN Reason: Protocol Last Admin: 11/30/17 10:00 Dose: 100 mls/hr Levetiracetam 500 mg/ Sodium (Chloride) 105 mls @ 210 mls/hr IVPB Q12 MARY ANN Last Admin: 11/30/17 09:21 Dose: 210 mls/hr Vancomycin HCl 750 mg/ Sodium (Chloride) 250 mls @ 166.667 mls/hr IVPB Q12H MARY ANN PRN Reason: Protocol Last Admin: 11/30/17 12:05 Dose: 166.667 mls/hr Insulin Human Regular (Humulin R) 0 units SC ACHS MARY ANN PRN Reason: Protocol Levothyroxine Sodium (Synthroid) 60 mcg IVP DAILY MARY ANN Last Admin: 11/30/17 10:26 Dose: 60 mcg Magnesium Hydroxide (Milk Of Magnesia) 15 ml PO QID PRN PRN Reason: Constipation Last Admin: 11/25/17 20:22 Dose: 15 ml Methylprednisolone (Solu-Medrol) 80 mg IV Q12H MARY ANN Pantoprazole Sodium (Protonix Inj) 40 mg IVP DAILY MARY ANN Last Admin: 11/30/17 10:25 Dose: 40 mg - Labs Labs: 11/30/17 05:20 11/30/17 05:20 PT 11.4 Seconds (9.8-13.1) 11/28/17 05:15 INR 1.0 (0.9-1.2) 11/28/17 05:15 APTT 20.7 Seconds (25.6-37.1) L 11/28/17 05:15 Assessment and Plan (1) Preop cardiovascular exam Status: Acute (2) Anemia Status: Acute (3) Bleeding in brain Status: Acute (4) Lung cancer Status: Acute (5) Metastasis to brain Status: Acute (6) Stage 4 malignant neoplasm of lung Status: Acute Attending/Attestation - Attestation I have personally seen and examined this patient.: Yes I have fully participated in the care of the patient.: Yes I have reviewed all pertinent clinical information, including history, physical exam and plan: Yes
[2017-11-30] MEDS: levETIRAcetam 500 MG in Sodium Chloride 0.9% 100 ML IVPB SCH ×2 (09:21→21:53)
--- NOTE | 2017-11-30 09:53 | RAD ---
HISTORY: chest heaviness COMPARISON: 11/29/2017 FINDINGS: LUNGS: No definite infiltrate. Cannot exclude infiltrate due to superimposed density of right pleural effusion. PLEURA: Moderate right pleural effusion with apical pleural capping. Minimal blunting of left costophrenic angle may reflect small pleural effusion. No pneumothorax. CARDIOVASCULAR: Right PICC catheter unchanged. Status post extubation. OSSEOUS STRUCTURES: No significant abnormalities. VISUALIZED UPPER ABDOMEN: Normal. OTHER FINDINGS: None. IMPRESSION: Right pleural effusion. Possible very small left pleural effusion. Can't exclude right-sided pulmonary infiltrate.
[2017-11-30] MEDS: Bacitracin OINT 15GM TOP SCH ×2 (10:25→18:00)
[2017-11-30] MEDS: Levothyroxine 100 mcg (0.1 mg) Inj IVP SCH (10:26)
--- NOTE | 2017-11-30 10:43 | CARD ---
APPROVED REPORT EKG Measurement Heart [id number] ID [id number] <Conclusion> Normal sinus rhythm Normal ECG
--- NOTE | 2017-11-30 11:00 | CP.PCM.PN ---
Subjective - Date & Time of Evaluation Date of Evaluation: 11/30/17 Time of Evaluation: 10:59 - Subjective Subjective: APPREHENSIVE AND CRYING EXTUBATED AND TRANSFERRED OUT OF ICU Objective - Vital Signs/Intake and Output Vital Signs (last 24 hours): Temp Pulse Resp BP Pulse Ox 97.9 F 74 18 151/81 H 92 L 11/30/17 07:47 11/30/17 07:47 11/30/17 07:47 11/30/17 07:47 11/30/17 07:47 - Medications Medications: Current Medications Acetaminophen (Tylenol 325mg Tab) 650 mg PO Q4 PRN PRN Reason: Headache Last Admin: 11/25/17 03:02 Dose: 650 mg Atorvastatin Calcium (Lipitor) 10 mg PO HS [facility] Bacitracin (Bacitracin Oint) 1 applic TOP BID [facility] Last Admin: 11/30/17 10:25 Dose: 1 applic Dexamethasone (Decadron Inj) 4 mg IV Q6 [facility] Last Admin: 11/30/17 10:24 Dose: 4 mg Piperacillin Sod/Tazobactam (Sod 3.375 gm/ Sodium Chloride) 100 mls @ 100 mls/ hr IVPB Q6 [facility]ARY ANN PRN Reason: Protocol Last Admin: 11/30/17 10:00 Dose: 100 mls/hr Vancomycin HCl 750 mg/ Sodium (Chloride) 250 mls @ 166.667 mls/hr IVPB Q12H [facility]ARY ANN PRN Reason: Protocol Last Admin: 11/29/17 21:20 Dose: 166.667 mls/hr Levetiracetam 500 mg/ Sodium (Chloride) 105 mls @ 210 mls/hr IVPB Q12 [facility] Last Admin: 11/30/17 09:21 Dose: 210 mls/hr Insulin Human Regular (Humulin R) 0 units SC ACHS MARY ANN PRN Reason: Protocol Levothyroxine Sodium (Synthroid) 60 mcg IVP DAILY [facility] Last Admin: 11/30/17 10:26 Dose: 60 mcg Magnesium Hydroxide (Milk Of Magnesia) 15 ml PO QID PRN PRN Reason: Constipation Last Admin: 11/25/17 20:22 Dose: 15 ml Pantoprazole Sodium (Protonix Inj) 40 mg IVP DAILY [facility] Last Admin: 11/30/17 10:25 Dose: 40 mg - Labs Labs: 01/04/18 05:20 11/30/17 05:20 PT 11.4 Seconds (9.8-13.1) 11/28/17 05:15 INR 1.0 (0.9-1.2) 11/28/17 05:15 APTT 20.7 Seconds (25.6-37.1) L 11/28/17 05:15 - Constitutional Appears: Chronically Ill - Head Exam Head Exam: ATRAUMATIC, NORMAL INSPECTION, NORMOCEPHALIC - Eye Exam Eye Exam: EOMI, Normal appearance, PERRL Pupil Exam: NORMAL ACCOMODATION, PERRL - ENT Exam ENT Exam: Mucous Membranes Moist, Normal Exam - Neck Exam Neck Exam: Full ROM, Normal Inspection. absent: Lymphadenopathy - Respiratory Exam Respiratory Exam: Decreased Breath Sounds, Clear to Ausculation Bilateral, Rales , NORMAL BREATHING PATTERN - Cardiovascular Exam Cardiovascular Exam: REGULAR RHYTHM, +S1, +S2. absent: Murmur - GI/Abdominal Exam GI & Abdominal Exam: Soft, Normal Bowel Sounds. absent: Tenderness - Rectal Exam Rectal Exam: NORMAL INSPECTION - Extremities Exam Extremities Exam: Full ROM, Normal Capillary Refill, Normal Inspection. absent : Joint Swelling, Pedal Edema - Back Exam Back Exam: NORMAL INSPECTION - Neurological Exam Neurological Exam: Alert, Awake, CN II-XII Intact, Normal Gait, Oriented x3 - Psychiatric Exam Psychiatric exam: Normal Affect, Normal Mood - Skin Skin Exam: Dry, Intact, Normal Color, Warm Assessment and Plan - Assessment and Plan (Free Text) Assessment: LUNG CANCER WITH METS PLEURAL EFFUSION S/P CRANIOTOMY Plan: CONTINUE CURRENT RX
[2017-11-30 11:44] LABS: ANISOCYTOSIS SLIGHT; BANDS 1 % (0-2); HYPOCHROMIC SLIGHT; LYMPHOCYTE 6 % (20-50); MONOCYTE 6 % (0-10); NEUTROPHIL 87 % (42-75); PLATELET ESTIMATE NORMAL (NORMAL); TOTAL CELLS COUNTED 100
[2017-11-30] MEDS ORDERED: methylPREDNISolone 80 MG in Sodium Chloride 0.9% 50 ML IVPB SCH (11:45)
--- NOTE | 2017-11-30 12:33 | CP.PCM.PN ---
<Deisi Calvillo - Last Filed: 11/30/17 16:10> Subjective - Date & Time of Evaluation Date of Evaluation: 11/30/17 Time of Evaluation: 07:30 - Subjective Subjective: Patient seen and examined at bedside with attending- Dr. Snyder. Patient was extubated yesterday is awake, alert, following commands. Mildly agitated and anxious requesting her daughter Nery be called and to have her call her. Telemetry reviewed, overnight had chest tightness and SOB which imporved s/p nitroglycerin, EKG was normal, troponin negative, nurse reported patient argued a few times with daughter at bedside. Currently denies chest pain, SOB, weakness or dizziness. Objective - Vital Signs/Intake and Output Vital Signs (last 24 hours): Temp Pulse Resp BP Pulse Ox 97.9 F 73 18 158/86 H 97 11/30/17 12:01 11/30/17 12:01 11/30/17 12:01 11/30/17 12:01 11/30/17 12:01 - Medications Medications: Current Medications Acetaminophen (Tylenol 325mg Tab) 650 mg PO Q4 PRN PRN Reason: Headache Last Admin: 11/25/17 03:02 Dose: 650 mg Albuterol/Ipratropium (Duoneb 3 Mg/0.5 Mg (3 Ml) Ud) 3 ml INH RQID [facility] Atorvastatin Calcium (Lipitor) 10 mg PO HS [facility] Bacitracin (Bacitracin Oint) 1 applic TOP BID [facility] Last Admin: 11/30/17 10:25 Dose: 1 applic Dexamethasone (Decadron Inj) 4 mg IV Q6 [facility] Last Admin: 11/30/17 10:24 Dose: 4 mg Piperacillin Sod/Tazobactam (Sod 3.375 gm/ Sodium Chloride) 100 mls @ 100 mls/ hr IVPB Q6 [facility] PRN Reason: Protocol Last Admin: 11/30/17 10:00 Dose: 100 mls/hr Levetiracetam 500 mg/ Sodium (Chloride) 105 mls @ 210 mls/hr IVPB Q12 [facility] Last Admin: 11/30/17 09:21 Dose: 210 mls/hr Vancomycin HCl 750 mg/ Sodium (Chloride) 250 mls @ 166.667 mls/hr IVPB Q12H [facility] PRN Reason: Protocol Last Admin: 11/30/17 12:05 Dose: 166.667 mls/hr Insulin Human Regular (Humulin R) 0 units SC ACHS MARY ANN PRN Reason: Protocol Levothyroxine Sodium (Synthroid) 60 mcg IVP DAILY [facility] Last Admin: 11/30/17 10:26 Dose: 60 mcg Magnesium Hydroxide (Milk Of Magnesia) 15 ml PO QID PRN PRN Reason: Constipation Last Admin: 11/25/17 20:22 Dose: 15 ml Methylprednisolone (Solu-Medrol) 80 mg IV Q12H [facility] Pantoprazole Sodium (Protonix Inj) 40 mg IVP DAILY [facility] Last Admin: 11/30/17 10:25 Dose: 40 mg - Labs Labs: 11/30/17 05:20 11/30/17 05:20 PT 11.4 Seconds (9.8-13.1) 11/28/17 05:15 INR 1.0 (0.9-1.2) 11/28/17 05:15 APTT 20.7 Seconds (25.6-37.1) L 11/28/17 05:15 - Constitutional Appears: Chronically Ill - Head Exam Additional comments: right posterior parietal wound clean and dry - Eye Exam Eye Exam: EOMI, PERRL - ENT Exam ENT Exam: Mucous Membranes Moist - Neck Exam Neck Exam: Full ROM - Respiratory Exam Respiratory Exam: NORMAL BREATHING PATTERN - Cardiovascular Exam Cardiovascular Exam: REGULAR RHYTHM, +S1, +S2 - GI/Abdominal Exam GI & Abdominal Exam: Soft (obese), Normal Bowel Sounds - Extremities Exam Extremities Exam: Full ROM. absent: Calf Tenderness, Pedal Edema - Neurological Exam Neurological Exam: Alert, Awake, CN II-XII Intact - Psychiatric Exam Psychiatric exam: Agitated (mild), Anxious (mild) - Skin Skin Exam: Dry, Normal Color, Warm Assessment and Plan - Assessment and Plan (Free Text) Assessment: 1. Hemorrhagic Brain Metastasis -POD # 2 s/p parietal craniotomy and tumor resection -CT Head: Hemorrhagic posterior right parietal/occipital mass and surrounding vasogenic edema consistent with neoplasm; probable small incidental meningioma -s/p :Decadron, Mannitol, Keppra 500mg IVP Q12 -11/24/17 MRI head: elliptical shaped hemorrhagic lesion in right posterior parieto-occipital watershed zone surrounded by vasogenic edema and together they exert considerable surrounding mass effect. -Neuro surgery on consult appreciated: POD #2 s/p tumor resection, awaiting pathology -Neurology on consult appreciated: Dr. Bellamy: agree with current management, will follow patient -Cardiology consult appreciated: Dr. Hathaway: patient stable cardiac davis - Neuro checks 2. Stage IV Lung cancer -diagnosed 06/2017; s/p radiotherapy -CT Chest:Large pleural-based mass extending from the right apex posteriorly almost to the lung base; right pleural effusion with large subpulmonic component ; atelectatic changes in the right lung greatest in the right lower lobe; mediastinal and right hilar adenopathy not optimally evaluated; age indeterminate posterior right seventh rib fracture -11/30/16 CXR: right pleural effusion, small left pleurtal effusion, cannot exclude right sided pulmonary infiltrate -Omid on board - Pulmonology consult appreciated - Conservative/Palliative management - Pain management -Heme/Onc consult appreciated: chemotherapy deferred, on homeopathic treatment, may want immunotherapy in the future 3. Hypothyroidism - Synthroid 60mcg IVP daily 4. Diabetic Mellitus type 2 -controlled, HbA1c 7.4 - hypoglycemia protocol in place -POC glucose slightly elevated due to IV steroid treatments and D5 IV fluid -Regular Insulin low dose protocol coverage scale -SC ACHS 5. DVT Prophylaxis -SCD's 6.GI prophylaxis - Pantoprazole 40mg IVP QD <Pedro Snyder - Last Filed: 12/05/17 12:42> Objective - Vital Signs/Intake and Output Vital Signs (last 24 hours): Temp Pulse Resp BP Pulse Ox 97.3 F L 91 H 20 127/76 93 L 12/05/17 12:22 12/05/17 12:22 12/05/17 12:22 12/05/17 12:22 12/05/17 12:22 - Medications Medications: Current Medications Acetaminophen (Tylenol 325mg Tab) 650 mg PO Q4 PRN PRN Reason: Headache Last Admin: 12/03/17 15:03 Dose: 650 mg Albuterol Sulfate (Albuterol 0.083% Inhal Deedee (2.5 Mg/3 Ml) Ud) 2.5 mg INH RQID [facility]ARY [facility] Last Admin: 12/05/17 11:06 Dose: 2.5 mg Atorvastatin Calcium (Lipitor) 10 mg PO HS [facility] Last Admin: 12/04/17 23:23 Dose: Not Given Bacitracin (Bacitracin Oint) 1 applic TOP BID [facility] Last Admin: 12/05/17 09:11 Dose: 1 applic Levetiracetam 500 mg/ Sodium (Chloride) 105 mls @ 210 mls/hr IVPB Q12 [facility] Last Admin: 12/05/17 09:09 Dose: 210 mls/hr Vancomycin HCl 750 mg/ Sodium (Chloride) 250 mls @ 166.667 mls/hr IVPB Q12H [facility] PRN Reason: Protocol Last Admin: 12/05/17 11:34 Dose: Not Given Insulin Human Regular (Humulin R) 0 units SC ACHS MARY ANN PRN Reason: Protocol Last Admin: 12/05/17 10:58 Dose: Not Given Levothyroxine Sodium (Levothyroxine) 60 mcg IVP DAILY [facility] Last Admin: 12/05/17 09:09 Dose: 60 mcg Magnesium Hydroxide (Milk Of Magnesia) 15 ml PO QID PRN PRN Reason: Constipation Last Admin: 12/02/17 21:31 Dose: 15 ml Methylprednisolone (Solu-Medrol) 40 mg IV Q12H [facility] Last Admin: 12/05/17 06:50 Dose: Not Given Pantoprazole Sodium (Protonix Inj) 40 mg IVP DAILY [facility] Last Admin: 12/05/17 09:10 Dose: 40 mg - Labs Labs: 12/04/17 08:24 12/04/17 08:24 PT 11.4 Seconds (9.8-13.1) 11/28/17 05:15 INR 1.0 (0.9-1.2) 11/28/17 05:15 APTT 20.7 Seconds (25.6-37.1) L 11/28/17 05:15 Assessment and Plan - Assessment and Plan (Free Text) Assessment: Patient was personally seen and examined by me in rounds with residents. Available labs and diagnostic data reviewed. Case, Patient's condition and management plan discussed with residents in rounds. Agree with resident's progress note. Plan: As ordered.
[2017-11-30] MEDS: Albuterol-Ipratrop 3 mg / 0.5 (3 ml) UD INH SCH ×3 (13:08→19:09)
[2017-11-30] MEDS ORDERED: Albuterol-Ipratrop 3 mg / 0.5 (3 ml) UD INH STA (23:29)
[2017-12-01] MEDS: Dexamethasone 4 mg/1 ml IV SCH ×4 (04:45→22:38)
[2017-12-01] MEDS: Piperacillin/Tazobact 3.375 GM in Sodium Chloride 0.9% 100 ML IVPB SCH ×4 (04:46→22:42)
[2017-12-01 05:45] LABS: MEAN CELL VOLUME 95.4 fl (81.0-99.0); MEAN CORPUSCULAR HEMOGLOBIN 30.9 pg (27.0-31.0); MEAN CORPUSCULAR HGB CONC 32.4 g/dL (33.0-37.0); RBC 3.9 Mil/uL (3.80-5.20); RED CELL DISTRIBUTION WIDTH 15.4 % (11.5-14.5); WHITE BLOOD COUNT 10.7 K/uL (4.8-10.8)
[2017-12-01 06:09] LABS: ALB/GLOB RATIO 1.1 (1.0-2.1); ALBUMIN 3.4 g/dL (3.5-5.0); ALT/SGPT 47 U/L (9-52); AST/SGOT 31 U/L (14-36); BLOOD UREA NITROGEN 26 mg/dl (7-17); CALCIUM 9.9 mg/dL (8.4-10.2); GFR AFRICAN-AMERICAN > 60; GFR NON-AFRICAN AMERICAN > 60
[2017-12-01] MEDS: Insulin Regular 100 units/ml SC SCH ×4 (06:33→22:31)
--- NOTE | 2017-12-01 07:23 | CP.PCM.PN ---
<Garima Wilson - Last Filed: 12/01/17 08:48> Subjective - Date & Time of Evaluation Date of Evaluation: 12/01/17 Time of Evaluation: 07:21 - Subjective Subjective: PGY2 progress note for cardiology, Dr. Hathaway Pt seen and examined at bedside. No acute events overnight. Pt c/o difficulty breathing. Currently on NC sating at 95%. Denies having any CP, abd pain, N/V/D /C, F/C. 12 point ROS negative except for the above mentioned. Objective - Vital Signs/Intake and Output Vital Signs (last 24 hours): Temp Pulse Resp BP Pulse Ox 97.4 F L 89 20 134/85 93 L 12/01/17 05:00 12/01/17 05:00 12/01/17 05:00 12/01/17 05:00 12/01/17 05:00 - Medications Medications: Current Medications Acetaminophen (Tylenol 325mg Tab) 650 mg PO Q4 PRN PRN Reason: Headache Last Admin: 12/01/17 06:17 Dose: 650 mg Albuterol/Ipratropium (Duoneb 3 Mg/0.5 Mg (3 Ml) Ud) 3 ml INH RQID [facility] Last Admin: 11/30/17 19:09 Dose: Not Given Atorvastatin Calcium (Lipitor) 10 mg PO HS [facility] Last Admin: 11/30/17 21:55 Dose: 10 mg Bacitracin (Bacitracin Oint) 1 applic TOP BID [facility] Last Admin: 11/30/17 18:00 Dose: 1 applic Dexamethasone (Decadron Inj) 4 mg IV Q6 [facility] Last Admin: 12/01/17 04:45 Dose: 4 mg Piperacillin Sod/Tazobactam (Sod 3.375 gm/ Sodium Chloride) 100 mls @ 100 mls/ hr IVPB Q6 [facility] PRN Reason: Protocol Last Admin: 12/01/17 04:46 Dose: 100 mls/hr Levetiracetam 500 mg/ Sodium (Chloride) 105 mls @ 210 mls/hr IVPB Q12 [facility] Last Admin: 11/30/17 21:53 Dose: 210 mls/hr Vancomycin HCl 750 mg/ Sodium (Chloride) 250 mls @ 166.667 mls/hr IVPB Q12H [facility]ARY ANN PRN Reason: Protocol Last Admin: 12/01/17 00:49 Dose: 166.667 mls/hr Insulin Human Regular (Humulin R) 0 units SC ACHS MARY ANN PRN Reason: Protocol Last Admin: 12/01/17 06:33 Dose: 4 units Levothyroxine Sodium (Synthroid) 60 mcg IVP DAILY [facility] Last Admin: 11/30/17 10:26 Dose: 60 mcg Magnesium Hydroxide (Milk Of Magnesia) 15 ml PO QID PRN PRN Reason: Constipation Last Admin: 11/25/17 20:22 Dose: 15 ml Methylprednisolone (Solu-Medrol) 80 mg IV Q12H [facility] Last Admin: 12/01/17 00:40 Dose: 80 mg Pantoprazole Sodium (Protonix Inj) 40 mg IVP DAILY [facility] Last Admin: 11/30/17 10:25 Dose: 40 mg - Labs Labs: 12/01/17 05:00 12/01/17 05:00 PT 11.4 Seconds (9.8-13.1) 11/28/17 05:15 INR 1.0 (0.9-1.2) 11/28/17 05:15 APTT 20.7 Seconds (25.6-37.1) L 11/28/17 05:15 - Constitutional Appears: Non-toxic, No Acute Distress - Head Exam Head Exam: ATRAUMATIC Additional comments: levi intact in scalp - ENT Exam ENT Exam: Mucous Membranes Moist - Respiratory Exam Respiratory Exam: Clear to Ausculation Bilateral. absent: Accessory Muscle Use , Rales, Rhonchi, Wheezes, Respiratory Distress - Cardiovascular Exam Cardiovascular Exam: REGULAR RHYTHM, +S1, +S2. absent: Gallop, Rubs, Murmur - GI/Abdominal Exam GI & Abdominal Exam: Soft, Normal Bowel Sounds. 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 Per note, pt deferred chemotherapy NC 2 L sating at 95% (3) Chest pressure r/o ACS EKG and trop x2 normal Echo done prior to craniotomy showed EF of 45-50% and was normal (4) DM HgbA1c is 7.4 Currently pt is on medium dose ISS Started pt on lipitor Will consider adding ACEI once cleared by neurosx for stricter BP control Case will be discussed with attending, Dr. Hathaway. Will sign off, please feel free to reconsult if necessary. <Mateusz Hathaway - Last Filed: 12/04/17 08:57> Objective - Vital Signs/Intake and Output Vital Signs (last 24 hours): Temp Pulse Resp BP Pulse Ox 97.2 F L 78 18 122/75 94 L 12/04/17 08:16 12/04/17 08:16 12/04/17 08:16 12/04/17 08:16 12/04/17 08:16 - Medications Medications: Current Medications Acetaminophen (Tylenol 325mg Tab) 650 mg PO Q4 PRN PRN Reason: Headache Last Admin: 12/03/17 15:03 Dose: 650 mg Albuterol Sulfate (Albuterol 0.083% Inhal Deedee (2.5 Mg/3 Ml) Ud) 2.5 mg INH RQID [facility] Last Admin: 12/04/17 07:42 Dose: 2.5 mg Atorvastatin Calcium (Lipitor) 10 mg PO HS [facility] Last Admin: 12/03/17 22:33 Dose: Not Given Bacitracin (Bacitracin Oint) 1 applic TOP BID [facility] Last Admin: 12/03/17 16:47 Dose: 1 applic Levetiracetam 500 mg/ Sodium (Chloride) 105 mls @ 210 mls/hr IVPB Q12 [facility] Last Admin: 12/03/17 22:24 Dose: 210 mls/hr Vancomycin HCl 750 mg/ Sodium (Chloride) 250 mls @ 166.667 mls/hr IVPB Q12H [facility] PRN Reason: Protocol Last Admin: 12/04/17 01:50 Dose: 166.667 mls/hr Insulin Human Regular (Humulin R) 0 units SC ACHS [facility] ANN PRN Reason: Protocol Last Admin: 12/04/17 06:30 Dose: 4 units Levothyroxine Sodium (Levothyroxine) 60 mcg IVP DAILY [facility] Last Admin: 12/03/17 09:15 Dose: 60 mcg Magnesium Hydroxide (Milk Of Magnesia) 15 ml PO QID PRN PRN Reason: Constipation Last Admin: 12/02/17 21:31 Dose: 15 ml Methylprednisolone (Solu-Medrol) 40 mg IV Q12H [facility] Last Admin: 12/04/17 06:28 Dose: 40 mg Pantoprazole Sodium (Protonix Inj) 40 mg IVP DAILY [facility] Last Admin: 12/03/17 09:08 Dose: 40 mg - Labs Labs: 12/04/17 08:24 12/03/17 06:30 PT 11.4 Seconds (9.8-13.1) 11/28/17 05:15 INR 1.0 (0.9-1.2) 11/28/17 05:15 APTT 20.7 Seconds (25.6-37.1) L 11/28/17 05:15 Assessment and Plan (1) Preop cardiovascular exam Status: Acute (2) Anemia Status: Acute (3) Bleeding in brain Status: Acute (4) Lung cancer Status: Acute (5) Metastasis to brain Status: Acute (6) Stage 4 malignant neoplasm of lung Status: Acute Attending/Attestation - Attestation I have personally seen and examined this patient.: Yes I have fully participated in the care of the patient.: Yes I have reviewed all pertinent clinical information, including history, physical exam and plan: Yes
--- NOTE | 2017-12-01 07:48 | CP.PCM.PN ---
<Deisi Calvillo - Last Filed: 12/01/17 10:54> Subjective - Date & Time of Evaluation Date of Evaluation: 12/01/17 Time of Evaluation: 07:50 - Subjective Subjective: Patient seen and examined at bedside with attending- Dr. Snyder, telemetry reviewed. Awake, alert, cooperative, reports she feels SOB worsened when she moves around in bed from side to side, despite being on 3L supplemental O2 via nasal cannula. Patient reports at home she uses an oxygen tank -4L via nasal cannula. Otherwise denies headache, weakness, dizziness or chest pain. Objective - Vital Signs/Intake and Output Vital Signs (last 24 hours): Temp Pulse Resp BP Pulse Ox 97.4 F L 89 20 134/85 93 L 12/01/17 05:00 12/01/17 05:00 12/01/17 05:00 12/01/17 05:00 12/01/17 05:00 - Medications Medications: Current Medications Acetaminophen (Tylenol 325mg Tab) 650 mg PO Q4 PRN PRN Reason: Headache Last Admin: 12/01/17 06:17 Dose: 650 mg Albuterol/Ipratropium (Duoneb 3 Mg/0.5 Mg (3 Ml) Ud) 3 ml INH RQID [facility] Last Admin: 11/30/17 19:09 Dose: Not Given Atorvastatin Calcium (Lipitor) 10 mg PO HS [facility] Last Admin: 11/30/17 21:55 Dose: 10 mg Bacitracin (Bacitracin Oint) 1 applic TOP BID [facility] Last Admin: 11/30/17 18:00 Dose: 1 applic Dexamethasone (Decadron Inj) 4 mg IV Q6 [facility] Last Admin: 12/01/17 04:45 Dose: 4 mg Piperacillin Sod/Tazobactam (Sod 3.375 gm/ Sodium Chloride) 100 mls @ 100 mls/ hr IVPB Q6 [facility] PRN Reason: Protocol Last Admin: 12/01/17 04:46 Dose: 100 mls/hr Levetiracetam 500 mg/ Sodium (Chloride) 105 mls @ 210 mls/hr IVPB Q12 [facility] Last Admin: 11/30/17 21:53 Dose: 210 mls/hr Vancomycin HCl 750 mg/ Sodium (Chloride) 250 mls @ 166.667 mls/hr IVPB Q12H [facility] PRN Reason: Protocol Last Admin: 12/01/17 00:49 Dose: 166.667 mls/hr Insulin Human Regular (Humulin R) 0 units SC ACHS [facility] PRN Reason: Protocol Last Admin: 12/01/17 06:33 Dose: 4 units Levothyroxine Sodium (Synthroid) 60 mcg IVP DAILY [facility] Last Admin: 11/30/17 10:26 Dose: 60 mcg Magnesium Hydroxide (Milk Of Magnesia) 15 ml PO QID PRN PRN Reason: Constipation Last Admin: 11/25/17 20:22 Dose: 15 ml Methylprednisolone (Solu-Medrol) 80 mg IV Q12H [facility] Last Admin: 12/01/17 00:40 Dose: 80 mg Pantoprazole Sodium (Protonix Inj) 40 mg IVP DAILY [facility] Last Admin: 11/30/17 10:25 Dose: 40 mg - Labs Labs: 12/01/17 05:00 12/01/17 05:00 PT 11.4 Seconds (9.8-13.1) 11/28/17 05:15 INR 1.0 (0.9-1.2) 11/28/17 05:15 APTT 20.7 Seconds (25.6-37.1) L 11/28/17 05:15 - Constitutional Appears: Chronically Ill - Head Exam Additional comments: right parietal wound clean and dry, levi in place - Eye Exam Eye Exam: EOMI - ENT Exam ENT Exam: Mucous Membranes Moist - Neck Exam Neck Exam: Full ROM - Respiratory Exam Additional comments: taking shallow breaths, normal O2 sat on 3L supplemental O2 via nasal cannula - Cardiovascular Exam Cardiovascular Exam: REGULAR RHYTHM, +S1, +S2 - GI/Abdominal Exam GI & Abdominal Exam: Soft (obese), Normal Bowel Sounds - Extremities Exam Extremities Exam: Full ROM. absent: Calf Tenderness, Pedal Edema - Neurological Exam Neurological Exam: Alert, Awake, CN II-XII Intact - Psychiatric Exam Psychiatric exam: Normal Affect, Normal Mood - Skin Skin Exam: Dry, Normal Color, Warm Assessment and Plan - Assessment and Plan (Free Text) Assessment: POD # 3 s/p parietal craniotomy and tumor resection. Per neurosurgery, patient is cleared to be discharged or go to rehabilitation. 1. Hemorrhagic Brain Metastasis -POD # 3 s/p parietal craniotomy and tumor resection -CT Head: Hemorrhagic posterior right parietal/occipital mass and surrounding vasogenic edema consistent with neoplasm; probable small incidental meningioma -s/p :Decadron, Mannitol, Keppra 500mg IVP Q12 -11/24/17 MRI head: elliptical shaped hemorrhagic lesion in right posterior parieto-occipital watershed zone surrounded by vasogenic edema and together they exert considerable surrounding mass effect. -Neuro surgery on consult appreciated: POD #3 s/p tumor resection, awaiting pathology, patient is cleared for discharge or to go to rehab -Neurology on consult appreciated: Dr. Bellamy: agree with current management, will follow patient -Cardiology consult appreciated: Dr. Hathaway: patient stable cardiac davis - Neuro checks 2. Stage IV Lung cancer -diagnosed 06/2017; s/p radiotherapy -CT Chest:Large pleural-based mass extending from the right apex posteriorly almost to the lung base; right pleural effusion with large subpulmonic component ; atelectatic changes in the right lung greatest in the right lower lobe; mediastinal and right hilar adenopathy not optimally evaluated; age indeterminate posterior right seventh rib fracture -11/30/16 CXR: right pleural effusion, small left pleural effusion, cannot exclude right sided pulmonary infiltrate -Omid on board - Pulmonology consult appreciated - Conservative/Palliative management - Pain management -Heme/Onc consult appreciated: chemotherapy deferred, on homeopathic treatment, may want immunotherapy in the future 3. Hypothyroidism - Synthroid 60mcg IVP daily 4. Diabetic Mellitus type 2 -controlled, HbA1c 7.4 - hypoglycemia protocol in place -POC glucose slightly elevated due to IV steroid treatments and D5 IV fluid -Regular Insulin low dose protocol coverage scale -SC ACHS 5. DVT Prophylaxis -SCD's 6.GI prophylaxis - Pantoprazole 40mg IVP QD <Pedro Snyder K - Last Filed: 12/05/17 13:00> Objective - Vital Signs/Intake and Output Vital Signs (last 24 hours): Temp Pulse Resp BP Pulse Ox 97.3 F L 91 H 20 127/76 93 L 12/05/17 12:22 12/05/17 12:22 12/05/17 12:22 12/05/17 12:22 12/05/17 12:22 - Medications Medications: Current Medications Acetaminophen (Tylenol 325mg Tab) 650 mg PO Q4 PRN PRN Reason: Headache Last Admin: 12/03/17 15:03 Dose: 650 mg Albuterol Sulfate (Albuterol 0.083% Inhal [place]edee (2.5 Mg/3 Ml) Ud) 2.5 mg INH RQID [facility] Last Admin: 12/05/17 11:06 Dose: 2.5 mg Atorvastatin Calcium (Lipitor) 10 mg PO HS [facility] Last Admin: 12/04/17 23:23 Dose: Not Given Bacitracin (Bacitracin Oint) 1 applic TOP BID [facility] Last Admin: 12/05/17 09:11 Dose: 1 applic Levetiracetam 500 mg/ Sodium (Chloride) 105 mls @ 210 mls/hr IVPB Q12 [facility] Last Admin: 12/05/17 09:09 Dose: 210 mls/hr Vancomycin HCl 750 mg/ Sodium (Chloride) 250 mls @ 166.667 mls/hr IVPB Q12H [facility] PRN Reason: Protocol Last Admin: 12/05/17 11:34 Dose: Not Given Insulin Human Regular (Humulin R) 0 units SC ACHS [facility] PRN Reason: Protocol Last Admin: 12/05/17 10:58 Dose: Not Given Levothyroxine Sodium (Levothyroxine) 60 mcg IVP DAILY [facility] Last Admin: 12/05/17 09:09 Dose: 60 mcg Magnesium Hydroxide (Milk Of Magnesia) 15 ml PO QID PRN PRN Reason: Constipation Last Admin: 12/02/17 21:31 Dose: 15 ml Methylprednisolone (Solu-Medrol) 40 mg IV Q12H [facility] Last Admin: 12/05/17 06:50 Dose: Not Given Pantoprazole Sodium (Protonix Inj) 40 mg IVP DAILY [facility] Last Admin: 12/05/17 09:10 Dose: 40 mg - Labs Labs: 12/04/17 08:24 12/04/17 08:24 PT 11.4 Seconds (9.8-13.1) 11/28/17 05:15 INR 1.0 (0.9-1.2) 11/28/17 05:15 APTT 20.7 Seconds (25.6-37.1) L 11/28/17 05:15 Assessment and Plan - Assessment and Plan (Free Text) Assessment: Patient was personally seen and examined by me in rounds with residents. Available labs and diagnostic data reviewed. Case, Patient's condition and management plan discussed with residents in rounds. Agree with resident's progress note. Plan: As ordered.
[2017-12-01] MEDS: Albuterol-Ipratrop 3 mg / 0.5 (3 ml) UD INH SCH ×4 (08:02→18:59)
[2017-12-01] MEDS: Bacitracin OINT 15GM TOP SCH ×2 (08:24→16:00)
[2017-12-01] MEDS: Levothyroxine 100 mcg (0.1 mg) Inj IVP SCH (08:25)
[2017-12-01] MEDS: levETIRAcetam 500 MG in Sodium Chloride 0.9% 100 ML IVPB SCH ×2 (08:46→22:36)
--- NOTE | 2017-12-01 09:58 | CP.PCM.PN ---
Subjective - Date & Time of Evaluation Date of Evaluation: 12/01/17 Time of Evaluation: 09:57 - Subjective Subjective: fully awake alert orineted moving all ext with good st wound clean doing well from our point of view can be d/c or sent to rehab at any time Objective - Vital Signs/Intake and Output Vital Signs (last 24 hours): Temp Pulse Resp BP Pulse Ox 97.4 F L 91 H 18 121/80 94 L 12/01/17 08:02 12/01/17 08:02 12/01/17 08:02 12/01/17 08:02 12/01/17 08:02 - Medications Medications: Current Medications Acetaminophen (Tylenol 325mg Tab) 650 mg PO Q4 PRN PRN Reason: Headache Last Admin: 12/01/17 06:17 Dose: 650 mg Albuterol/Ipratropium (Duoneb 3 Mg/0.5 Mg (3 Ml) Ud) 3 ml INH RQID [facility] Last Admin: 12/01/17 08:02 Dose: 3 ml Atorvastatin Calcium (Lipitor) 10 mg PO HS [facility] Last Admin: 11/30/17 21:55 Dose: 10 mg Bacitracin (Bacitracin Oint) 1 applic TOP BID [facility] Last Admin: 12/01/17 08:24 Dose: 1 applic Dexamethasone (Decadron Inj) 4 mg IV Q6 [facility] Last Admin: 12/01/17 04:45 Dose: 4 mg Piperacillin Sod/Tazobactam (Sod 3.375 gm/ Sodium Chloride) 100 mls @ 100 mls/ hr IVPB Q6 [facility] PRN Reason: Protocol Last Admin: 12/01/17 09:12 Dose: 100 mls/hr Levetiracetam 500 mg/ Sodium (Chloride) 105 mls @ 210 mls/hr IVPB Q12 [facility] Last Admin: 12/01/17 08:46 Dose: 210 mls/hr Vancomycin HCl 750 mg/ Sodium (Chloride) 250 mls @ 166.667 mls/hr IVPB Q12H [facility] PRN Reason: Protocol Last Admin: 12/01/17 00:49 Dose: 166.667 mls/hr Insulin Human Regular (Humulin R) 0 units SC ACHS [facility] PRN Reason: Protocol Last Admin: 12/01/17 06:33 Dose: 4 units Levothyroxine Sodium (Synthroid) 60 mcg IVP DAILY [facility] Last Admin: 12/01/17 08:25 Dose: 60 mcg Magnesium Hydroxide (Milk Of Magnesia) 15 ml PO QID PRN PRN Reason: Constipation Last Admin: 11/25/17 20:22 Dose: 15 ml Methylprednisolone (Solu-Medrol) 80 mg IV Q12H [facility] Last Admin: 12/01/17 00:40 Dose: 80 mg Pantoprazole Sodium (Protonix Inj) 40 mg IVP DAILY [facility] Last Admin: 12/01/17 08:27 Dose: 40 mg - Labs Labs: 12/01/17 05:00 12/01/17 05:00 PT 11.4 Seconds (9.8-13.1) 11/28/17 05:15 INR 1.0 (0.9-1.2) 11/28/17 05:15 APTT 20.7 Seconds (25.6-37.1) L 11/28/17 05:15
--- NOTE | 2017-12-01 10:52 | CARD ---
APPROVED REPORT EKG Measurement Heart [id number] [place] 114P-1 [id number] <Conclusion> Normal sinus rhythm Normal ECG
--- NOTE | 2017-12-01 13:42 | PQF GENQUE ---
This form is a permanent part of the medical record 12/01/17 Dr. Snyder, Patient with a history of DM II presents with Hemorrhagic Brain Metastasis with vasogenic edema. Medication includes Decadron. S/P right parieto-occipital craniotomy, excisional biopsy and decompression of mass. Accuchecks running 156-323. Please specify status of DM: > Controlled > With Hyperglycemia > Other ( please specify ) > Clinically unable to determine > Unknown Clarification of your documentation is requested to better reflect the severity of illness and intensity of treatment of your patient. Indicators present [] Specify: [] [] Specify: [] [] Specify: [] [] Specify: [] Location in the medical record that reflects the above clinical findings: [] Treatment Provided: [] PHYSICIAN'S RESPONSE Please specify status of DM: [] Controlled [] With Hyperglycemia [] Other ( please specify ) [] Clinically unable to determine [] Unknown Based on your medical judgment of the clinical indicators outlined above please clarify the following: [] Practitioner response [] If unable to determine, please check the box, sign and date. Present On Admission (POA) Indicator: [] Present at the time of admission [] Not present at the time of admission [] Clinically Undetermined In responding to this query, please exercise your independent professional judgment. The fact that a question is asked does not imply that any particular answer is desired or expected. Thank you for your clarification on this documentation. If you have any questions please call:extension [phone] * Thank you, Wendi Burnham RN CDMP MTDD
--- NOTE | 2017-12-01 13:48 | CP.PCM.PN ---
Subjective - Date & Time of Evaluation Date of Evaluation: 12/01/17 Time of Evaluation: 13:48 - Subjective Subjective: NO NEW CLINICAL FINDINGS SOB LESS WILL CONTINUE CURRENT RX Objective - Vital Signs/Intake and Output Vital Signs (last 24 hours): Temp Pulse Resp BP Pulse Ox 97.6 F 93 H 18 119/77 97 12/01/17 12:08 12/01/17 12:08 12/01/17 12:08 12/01/17 12:08 12/01/17 12:08 - Medications Medications: Current Medications Acetaminophen (Tylenol 325mg Tab) 650 mg PO Q4 PRN PRN Reason: Headache Last Admin: 12/01/17 06:17 Dose: 650 mg Albuterol/Ipratropium (Duoneb 3 Mg/0.5 Mg (3 Ml) Ud) 3 ml INH RQID [facility] Last Admin: 12/01/17 12:06 Dose: 3 ml Atorvastatin Calcium (Lipitor) 10 mg PO HS [facility] Last Admin: 11/30/17 21:55 Dose: 10 mg Bacitracin (Bacitracin Oint) 1 applic TOP BID [facility] Last Admin: 12/01/17 08:24 Dose: 1 applic Dexamethasone (Decadron Inj) 4 mg IV Q6 [facility] Last Admin: 12/01/17 11:47 Dose: 4 mg Piperacillin Sod/Tazobactam (Sod 3.375 gm/ Sodium Chloride) 100 mls @ 100 mls/ hr IVPB Q6 [facility] PRN Reason: Protocol Last Admin: 12/01/17 09:12 Dose: 100 mls/hr Levetiracetam 500 mg/ Sodium (Chloride) 105 mls @ 210 mls/hr IVPB Q12 [facility] Last Admin: 12/01/17 08:46 Dose: 210 mls/hr Vancomycin HCl 750 mg/ Sodium (Chloride) 250 mls @ 166.667 mls/hr IVPB Q12H [facility] PRN Reason: Protocol Last Admin: 12/01/17 11:57 Dose: 166.667 mls/hr Insulin Human Regular (Humulin R) 0 units SC ACHS [facility] PRN Reason: Protocol Last Admin: 12/01/17 11:49 Dose: 6 units Levothyroxine Sodium (Synthroid) 60 mcg IVP DAILY [facility] Last Admin: 12/01/17 08:25 Dose: 60 mcg Magnesium Hydroxide (Milk Of Magnesia) 15 ml PO QID PRN PRN Reason: Constipation Last Admin: 11/25/17 20:22 Dose: 15 ml Methylprednisolone (Solu-Medrol) 80 mg IV Q12H [facility] Last Admin: 12/01/17 11:48 Dose: 80 mg Pantoprazole Sodium (Protonix Inj) 40 mg IVP DAILY [facility] Last Admin: 12/01/17 08:27 Dose: 40 mg - Labs Labs: 12/01/17 05:00 12/01/17 05:00 PT 11.4 Seconds (9.8-13.1) 11/28/17 05:15 INR 1.0 (0.9-1.2) 11/28/17 05:15 APTT 20.7 Seconds (25.6-37.1) L 11/28/17 05:15
[2017-12-01] MEDS ORDERED: Albuterol-Ipratrop 3 mg / 0.5 (3 ml) UD INH STA (18:24)
[2017-12-02] MEDS: Piperacillin/Tazobact 3.375 GM in Sodium Chloride 0.9% 100 ML IVPB SCH ×4 (03:35→21:00)
[2017-12-02] MEDS: Dexamethasone 4 mg/1 ml IV SCH ×4 (03:36→21:00)
[2017-12-02] MEDS: Insulin Regular 100 units/ml SC SCH ×4 (07:30→21:38)
[2017-12-02 07:50] LABS: ALB/GLOB RATIO 1.1 (1.0-2.1); ALBUMIN 3.5 g/dL (3.5-5.0); ALT/SGPT 52 U/L (9-52); AST/SGOT 27 U/L (14-36); BLOOD UREA NITROGEN 25 mg/dl (7-17); CALCIUM 10.6 mg/dL (8.4-10.2); GFR AFRICAN-AMERICAN > 60; GFR NON-AFRICAN AMERICAN > 60
[2017-12-02 07:51] LABS: MEAN CELL VOLUME 94.6 fl (81.0-99.0); MEAN CORPUSCULAR HEMOGLOBIN 31.3 pg (27.0-31.0); MEAN CORPUSCULAR HGB CONC 33.1 g/dL (33.0-37.0); RBC 3.81 Mil/uL (3.80-5.20); RED CELL DISTRIBUTION WIDTH 15.3 % (11.5-14.5); WHITE BLOOD COUNT 10.9 K/uL (4.8-10.8)
[2017-12-02] MEDS: Albuterol 0.083% Inhal Sol (2.5 mg/3 mL) UD INH SCH ×4 (07:58→19:36)
[2017-12-02] MEDS: levETIRAcetam 500 MG in Sodium Chloride 0.9% 100 ML IVPB SCH ×2 (09:00→20:49)
[2017-12-02] MEDS: Levothyroxine 100 mcg (0.1 mg) Inj IVP SCH (09:28)
[2017-12-02] MEDS: Bacitracin OINT 15GM TOP SCH ×2 (09:29→17:27)
--- NOTE | 2017-12-02 18:45 | CP.PCM.PN ---
Subjective - Date & Time of Evaluation Date of Evaluation: 12/01/17 Time of Evaluation: 10:00 - Subjective Subjective: Has mild post op pain Objective - Vital Signs/Intake and Output Vital Signs (last 24 hours): Temp Pulse Resp BP Pulse Ox 98.1 F 90 16 132/84 94 L 12/02/17 16:05 12/02/17 16:05 12/02/17 16:05 12/02/17 16:05 12/02/17 16:05 - Medications Medications: Current Medications Acetaminophen (Tylenol 325mg Tab) 650 mg PO Q4 PRN PRN Reason: Headache Last Admin: 12/01/17 06:17 Dose: 650 mg Albuterol Sulfate (Albuterol 0.083% Inhal [place]edee (2.5 Mg/3 Ml) Ud) 2.5 mg INH RQID [facility] Last Admin: 12/02/17 15:04 Dose: 2.5 mg Atorvastatin Calcium (Lipitor) 10 mg PO HS [facility] Last Admin: 12/01/17 22:39 Dose: 10 mg Bacitracin (Bacitracin Oint) 1 applic TOP BID [facility] Last Admin: 12/02/17 17:27 Dose: 1 applic Dexamethasone (Decadron Inj) 4 mg IV Q6 [facility] Last Admin: 12/02/17 16:00 Dose: 4 mg Piperacillin Sod/Tazobactam (Sod 3.375 gm/ Sodium Chloride) 100 mls @ 100 mls/ hr IVPB Q6 [facility] PRN Reason: Protocol Last Admin: 12/02/17 16:00 Dose: 100 mls/hr Levetiracetam 500 mg/ Sodium (Chloride) 105 mls @ 210 mls/hr IVPB Q12 [facility] Last Admin: 12/02/17 09:00 Dose: 210 mls/hr Vancomycin HCl 750 mg/ Sodium (Chloride) 250 mls @ 166.667 mls/hr IVPB Q12H [facility] PRN Reason: Protocol Last Admin: 12/02/17 12:00 Dose: 166.667 mls/hr Insulin Human Regular (Humulin R) 0 units SC ACHS [facility] PRN Reason: Protocol Last Admin: 12/02/17 17:20 Dose: 4 units Levothyroxine Sodium (Synthroid) 60 mcg IVP DAILY [facility] Last Admin: 12/02/17 09:28 Dose: 60 mcg Magnesium Hydroxide (Milk Of Magnesia) 15 ml PO QID PRN PRN Reason: Constipation Last Admin: 11/25/17 20:22 Dose: 15 ml Methylprednisolone (Solu-Medrol) 60 mg IV Q12H [facility] Last Admin: 12/02/17 17:42 Dose: 60 mg Pantoprazole Sodium (Protonix Inj) 40 mg IVP DAILY [facility] Last Admin: 12/02/17 09:26 Dose: 40 mg - Labs Labs: 12/02/17 06:30 12/02/17 06:30 PT 11.4 Seconds (9.8-13.1) 11/28/17 05:15 INR 1.0 (0.9-1.2) 11/28/17 05:15 APTT 20.7 Seconds (25.6-37.1) L 11/28/17 05:15 - Head Exam Head Exam: ATRAUMATIC - Eye Exam Eye Exam: Normal appearance - ENT Exam ENT Exam: Mucous Membranes Dry - Respiratory Exam Respiratory Exam: NORMAL BREATHING PATTERN - Cardiovascular Exam Cardiovascular Exam: +S1, +S2 - GI/Abdominal Exam GI & Abdominal Exam: Normal Bowel Sounds - Extremities Exam Extremities Exam: Pedal Edema Assessment and Plan (1) Metastasis to brain Assessment & Plan: s/p neurosurgery resection f/u official report Status: Acute (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
--- NOTE | 2017-12-02 18:46 | CP.PCM.PN ---
Subjective - Date & Time of Evaluation Date of Evaluation: 12/02/17 Time of Evaluation: 14:00 - Subjective Subjective: No complaints. Objective - Vital Signs/Intake and Output Vital Signs (last 24 hours): Temp Pulse Resp BP Pulse Ox 98.1 F 90 16 132/84 94 L 12/02/17 16:05 12/02/17 16:05 12/02/17 16:05 12/02/17 16:05 12/02/17 16:05 - Medications Medications: Current Medications Acetaminophen (Tylenol 325mg Tab) 650 mg PO Q4 PRN PRN Reason: Headache Last Admin: 12/01/17 06:17 Dose: 650 mg Albuterol Sulfate (Albuterol 0.083% Inhal [place]edee (2.5 Mg/3 Ml) Ud) 2.5 mg INH RQID [facility] Last Admin: 12/02/17 15:04 Dose: 2.5 mg Atorvastatin Calcium (Lipitor) 10 mg PO HS [facility] Last Admin: 12/01/17 22:39 Dose: 10 mg Bacitracin (Bacitracin Oint) 1 applic TOP BID [facility] Last Admin: 12/02/17 17:27 Dose: 1 applic Dexamethasone (Decadron Inj) 4 mg IV Q6 [facility] Last Admin: 12/02/17 16:00 Dose: 4 mg Piperacillin Sod/Tazobactam (Sod 3.375 gm/ Sodium Chloride) 100 mls @ 100 mls/ hr IVPB Q6 [facility] PRN Reason: Protocol Last Admin: 12/02/17 16:00 Dose: 100 mls/hr Levetiracetam 500 mg/ Sodium (Chloride) 105 mls @ 210 mls/hr IVPB Q12 [facility] Last Admin: 12/02/17 09:00 Dose: 210 mls/hr Vancomycin HCl 750 mg/ Sodium (Chloride) 250 mls @ 166.667 mls/hr IVPB Q12H [facility] PRN Reason: Protocol Last Admin: 12/02/17 12:00 Dose: 166.667 mls/hr Insulin Human Regular (Humulin R) 0 units SC ACHS [facility] PRN Reason: Protocol Last Admin: 12/02/17 17:20 Dose: 4 units Levothyroxine Sodium (Synthroid) 60 mcg IVP DAILY [facility] Last Admin: 12/02/17 09:28 Dose: 60 mcg Magnesium Hydroxide (Milk Of Magnesia) 15 ml PO QID PRN PRN Reason: Constipation Last Admin: 11/25/17 20:22 Dose: 15 ml Methylprednisolone (Solu-Medrol) 60 mg IV Q12H [facility] Last Admin: 12/02/17 17:42 Dose: 60 mg Pantoprazole Sodium (Protonix Inj) 40 mg IVP DAILY [facility] Last Admin: 12/02/17 09:26 Dose: 40 mg - Labs Labs: 12/02/17 06:30 12/02/17 06:30 PT 11.4 Seconds (9.8-13.1) 11/28/17 05:15 INR 1.0 (0.9-1.2) 11/28/17 05:15 APTT 20.7 Seconds (25.6-37.1) L 11/28/17 05:15 - Head Exam Head Exam: ATRAUMATIC - Eye Exam Eye Exam: Normal appearance - ENT Exam ENT Exam: Mucous Membranes Dry - Respiratory Exam Respiratory Exam: NORMAL BREATHING PATTERN - Cardiovascular Exam Cardiovascular Exam: +S1, +S2 - GI/Abdominal Exam GI & Abdominal Exam: Normal Bowel Sounds Assessment and Plan (1) Metastasis to brain Assessment & Plan: s/p neurosurgical resection f/u official path report Status: Acute (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
[2017-12-02] MEDS: Magnesium Hydroxide Susp 30 ml UD PO PRN (21:31)
[2017-12-03] MEDS ORDERED: Albuterol-Ipratrop 3 mg / 0.5 (3 ml) UD INH SCH (03:45)
[2017-12-03] MEDS: Piperacillin/Tazobact 3.375 GM in Sodium Chloride 0.9% 100 ML IVPB SCH ×3 (03:52→16:50)
[2017-12-03] MEDS: Dexamethasone 4 mg/1 ml IV SCH ×3 (03:54→16:44)
[2017-12-03] MEDS ORDERED: Albuterol-Ipratrop 3 mg / 0.5 (3 ml) UD INH ONE (04:00)
[2017-12-03] MEDS: MethylPREDNISolone 40 mg Vial IV SCH ×2 (06:51→18:52)
[2017-12-03 07:17] LABS: HEMOGLOBIN 11.5 g/dL (12.0-16.0); MEAN CELL VOLUME 94.8 fl (81.0-99.0); MEAN CORPUSCULAR HEMOGLOBIN 31.3 pg (27.0-31.0); RBC 3.69 Mil/uL (3.80-5.20); RED CELL DISTRIBUTION WIDTH 15.3 % (11.5-14.5)
[2017-12-03] MEDS: Albuterol 0.083% Inhal Sol (2.5 mg/3 mL) UD INH SCH ×4 (07:35→20:01)
[2017-12-03] MEDS: Insulin Regular 100 units/ml SC SCH ×4 (07:40→22:25)
[2017-12-03 07:55] LABS: BLOOD UREA NITROGEN 29 mg/dl (7-17)
[2017-12-03 07:56] LABS: ALBUMIN 3.1 g/dL (3.5-5.0); ALT/SGPT 46 U/L (9-52); AST/SGOT 33 U/L (14-36); CALCIUM 10.6 mg/dL (8.4-10.2); GFR AFRICAN-AMERICAN > 60; GFR NON-AFRICAN AMERICAN > 60
[2017-12-03] MEDS: Bacitracin OINT 15GM TOP SCH ×2 (09:08→16:47)
[2017-12-03] MEDS: levETIRAcetam 500 MG in Sodium Chloride 0.9% 100 ML IVPB SCH ×2 (09:13→22:24)
[2017-12-03] MEDS: Levothyroxine 200 mcg (0.2 mg) Inj IVP SCH (09:15)
--- NOTE | 2017-12-03 10:24 | CP.PCM.PN ---
Subjective - Date & Time of Evaluation Date of Evaluation: 12/03/17 Time of Evaluation: 10:25 - Subjective Subjective: AWAKE AND ALERT STILL HAS DYSPNEA AT REST REFUSES RADHA SHERIFF AT BEDSIDE AND CASE WAS DISCUSSED WITH HER--SHE INDICATES THAT PT IS PLANNING ON GOING TO [facility] Objective - Vital Signs/Intake and Output Vital Signs (last 24 hours): Temp Pulse Resp BP Pulse Ox 97.8 F 94 H 20 143/83 94 L 12/03/17 08:18 12/03/17 08:18 12/03/17 08:18 12/03/17 08:18 12/03/17 08:18 - Medications Medications: Current Medications Acetaminophen (Tylenol 325mg Tab) 650 mg PO Q4 PRN PRN Reason: Headache Last Admin: 12/01/17 06:17 Dose: 650 mg Albuterol Sulfate (Albuterol 0.083% Inhal [place]edee (2.5 Mg/3 Ml) Ud) 2.5 mg INH RQID [facility] Last Admin: 12/03/17 07:35 Dose: 2.5 mg Atorvastatin Calcium (Lipitor) 10 mg PO HS [facility] Last Admin: 12/02/17 21:00 Dose: 10 mg Bacitracin (Bacitracin Oint) 1 applic TOP BID [facility] Last Admin: 12/03/17 09:08 Dose: 1 applic Dexamethasone (Decadron Inj) 4 mg IV Q6 [facility] Last Admin: 12/03/17 09:07 Dose: 4 mg Piperacillin Sod/Tazobactam (Sod 3.375 gm/ Sodium Chloride) 100 mls @ 100 mls/ hr IVPB Q6 [facility] PRN Reason: Protocol Last Admin: 12/03/17 09:24 Dose: 100 mls/hr Levetiracetam 500 mg/ Sodium (Chloride) 105 mls @ 210 mls/hr IVPB Q12 [facility] Last Admin: 12/03/17 09:13 Dose: 210 mls/hr Vancomycin HCl 750 mg/ Sodium (Chloride) 250 mls @ 166.667 mls/hr IVPB Q12H [facility] PRN Reason: Protocol Last Admin: 12/02/17 23:44 Dose: 166.667 mls/hr Insulin Human Regular (Humulin R) 0 units SC ACHS [facility] PRN Reason: Protocol Last Admin: 12/03/17 07:40 Dose: 6 units Levothyroxine Sodium (Levothyroxine) 60 mcg IVP DAILY [facility] Last Admin: 12/03/17 09:15 Dose: 60 mcg Magnesium Hydroxide (Milk Of Magnesia) 15 ml PO QID PRN PRN Reason: Constipation Last Admin: 12/02/17 21:31 Dose: 15 ml Methylprednisolone (Solu-Medrol) 40 mg IV Q12H [facility] Last Admin: 12/03/17 06:51 Dose: 40 mg Pantoprazole Sodium (Protonix Inj) 40 mg IVP DAILY [facility] Last Admin: 12/03/17 09:08 Dose: 40 mg - Labs Labs: 12/03/17 06:30 12/03/17 06:30 PT 11.4 Seconds (9.8-13.1) 11/28/17 05:15 INR 1.0 (0.9-1.2) 11/28/17 05:15 APTT 20.7 Seconds (25.6-37.1) L 11/28/17 05:15 - Constitutional Appears: Chronically Ill - Head Exam Head Exam: ATRAUMATIC, NORMAL INSPECTION, NORMOCEPHALIC - Eye Exam Eye Exam: EOMI, Normal appearance, PERRL Pupil Exam: NORMAL ACCOMODATION, PERRL - ENT Exam ENT Exam: Mucous Membranes Moist, Normal Exam - Neck Exam Neck Exam: Full ROM, Normal Inspection. absent: Lymphadenopathy - Respiratory Exam Respiratory Exam: Decreased Breath Sounds, Rales - Cardiovascular Exam Cardiovascular Exam: REGULAR RHYTHM, +S1, +S2. absent: Murmur - GI/Abdominal Exam GI & Abdominal Exam: Soft, Normal Bowel Sounds. absent: Tenderness - Rectal Exam Rectal Exam: NORMAL INSPECTION - Extremities Exam Extremities Exam: Full ROM, Normal Capillary Refill, Normal Inspection. absent : Joint Swelling, Pedal Edema - Back Exam Back Exam: NORMAL INSPECTION - Neurological Exam Neurological Exam: Alert, Awake, CN II-XII Intact, Oriented x3 - Psychiatric Exam Psychiatric exam: Normal Affect, Normal Mood - Skin Skin Exam: Dry, Intact, Normal Color, Warm Assessment and Plan - Assessment and Plan (Free Text) Assessment: LUNG CANCER WITH METS S/P CRANIOTOMY FOR DEBULKING OF INTRACRANIAL TUMOR Plan: CONTINUE CURRENT RX PROGNOSIS IS GUARDED
--- NOTE | 2017-12-03 11:53 | PN ---
DATE: 12/03/2017 SUBJECTIVE: The patient seen and examined. Interim events noted. Consults noted and appreciated. The patient remains in Progressive Care Unit on telemetry monitoring. The patient feels okay with complaints of periods of anxiety. No chest pain, no shortness of breath. PHYSICAL EXAMINATION: GENERAL: The patient is in no acute distress. VITAL SIGNS: Stable. HEART: S1 and S2 normal and regular. LUNGS: Improved bilateral air exchange. ABDOMEN: Soft, nontender. EXTREMITIES: No edema. No calf swelling. No tenderness. No acute ischemia. CENTRAL NERVOUS SYSTEM: Essentially unchanged. DIAGNOSTIC DATA: Available diagnostic data reviewed. Telemetry monitoring does not reveal significant arrhythmia. WBC 10.9, hemoglobin 12, hematocrit 36.1, platelets 203,000. Accu-Cheks are still high, but the patient is . SMA-12 otherwise is unremarkable. ASSESSMENT AND PLAN: Hematology/Oncology followup and intervention noted and appreciated. Overall, the patient is clinically stable. The patient is for subacute rehab, which will be arranged tomorrow. Case and plan discussed with the patient and the patient's family at bedside at length. Pedro Snyder MD
[2017-12-04] MEDS: MethylPREDNISolone 40 mg Vial IV SCH ×2 (06:28→17:31)
[2017-12-04] MEDS: Insulin Regular 100 units/ml SC SCH ×4 (06:30→22:34)
--- NOTE | 2017-12-04 06:47 | PQF GENQUE ---
This form is a permanent part of the medical record 12/04/17 Dr. Snyder, Patient developed chest pain/tightness and sob. Documentation of chest pain r/o ACS. EKG: NSR, Troponin x 3 normal. 1)Would you please clarify if the ACS is ruled in or ruled out 2) Please provide the underlying diagnosis causing the patient's documented symptom of chest pain if known. Clarification of your documentation is requested to better reflect the severity of illness and intensity of treatment of your patient. Indicators present [] Specify: [] [] Specify: [] [] Specify: [] [] Specify: [] Location in the medical record that reflects the above clinical findings: [] Treatment Provided: [] PHYSICIAN'S RESPONSE Based on your medical judgment of the clinical indicators outlined above please clarify the following: [] Practitioner response [] If unable to determine, please check the box, sign and date. Present On Admission (POA) Indicator: [] Present at the time of admission [] Not present at the time of admission [] Clinically Undetermined In responding to this query, please exercise your independent professional judgment. The fact that a question is asked does not imply that any particular answer is desired or expected. Thank you for your clarification on this documentation. If you have any questions please call:extension [phone] * Thank you, Wendi Burnham RN [facility]
[2017-12-04] MEDS: Albuterol 0.083% Inhal Sol (2.5 mg/3 mL) UD INH SCH ×4 (07:42→19:24)
[2017-12-04 08:53] LABS: HEMOGLOBIN 11.6 g/dL (12.0-16.0); MEAN CELL VOLUME 95.3 fl (81.0-99.0); MEAN CORPUSCULAR HEMOGLOBIN 30.7 pg (27.0-31.0); MEAN CORPUSCULAR HGB CONC 32.2 g/dL (33.0-37.0); RBC 3.79 Mil/uL (3.80-5.20); RED CELL DISTRIBUTION WIDTH 15.3 % (11.5-14.5)
[2017-12-04] MEDS: levETIRAcetam 500 MG in Sodium Chloride 0.9% 100 ML IVPB SCH ×2 (09:06→23:23)
[2017-12-04] MEDS: Bacitracin OINT 15GM TOP SCH ×2 (09:06→16:09)
[2017-12-04] MEDS: Levothyroxine 200 mcg (0.2 mg) Inj IVP SCH (09:07)
[2017-12-04 09:24] LABS: ALB/GLOB RATIO 1.1 (1.0-2.1); ALBUMIN 3.3 g/dL (3.5-5.0); ALT/SGPT 42 U/L (9-52); AST/SGOT 20 U/L (14-36); BLOOD UREA NITROGEN 31 mg/dl (7-17); CALCIUM 11.3 mg/dL (8.4-10.2); GFR AFRICAN-AMERICAN > 60; GFR NON-AFRICAN AMERICAN 53
--- NOTE | 2017-12-04 12:19 | CP.PCM.PCO ---
Assessment/Plan - Assessment and Plan (Free Text) Assessment: Patient seen and examined this afternoon. Vital signs stable, in NAD. Periods of anxiety. Plan for dc discussed with YECENIA, Rosanna Anguiano. Patient with debilitation and requiring oxygen therapy, would benefit from ALPHONSO, patient and family (GAMALIEL Castro) are refusing rehab at this time, prefer to go home. DC plan discussed with Dr Snyder who agrees with dc. Neurosurgery and Neurology have cleared patient with outpatient follow up, keppra rx will be given to patient. Pt to follow up in 1-2 weeks Patient has been seen by Dr Leon but patient refuses chemotherapy at this time , will pursue the homeopathic route of treatment.
--- NOTE | 2017-12-04 16:26 | CP.PCM.PN ---
<Jaci Todd - Last Filed: 12/04/17 16:24> Subjective - Subjective Subjective: Pt is for discharge to home today, no CP, has some mild dyspnea on exertion Objective - Vital Signs/Intake and Output Vital Signs (last 24 hours): Temp Pulse Resp BP Pulse Ox 97.3 F L 84 19 132/74 94 L 12/04/17 16:17 12/04/17 16:17 12/04/17 16:17 12/04/17 16:17 12/04/17 16:17 - Medications Medications: Current Medications Acetaminophen (Tylenol 325mg Tab) 650 mg PO Q4 PRN PRN Reason: Headache Last Admin: 12/03/17 15:03 Dose: 650 mg Albuterol Sulfate (Albuterol 0.083% Inhal Deedee (2.5 Mg/3 Ml) Ud) 2.5 mg INH RQID [facility] Last Admin: 12/04/17 15:57 Dose: 2.5 mg Atorvastatin Calcium (Lipitor) 10 mg PO HS [facility] Last Admin: 12/03/17 22:33 Dose: Not Given Bacitracin (Bacitracin Oint) 1 applic TOP BID [facility] Last Admin: 12/04/17 16:09 Dose: 1 applic Levetiracetam 500 mg/ Sodium (Chloride) 105 mls @ 210 mls/hr IVPB Q12 [facility]ARY ANN Last Admin: 12/04/17 09:06 Dose: 210 mls/hr Vancomycin HCl 750 mg/ Sodium (Chloride) 250 mls @ 166.667 mls/hr IVPB Q12H [facility] ANN PRN Reason: Protocol Last Admin: 12/04/17 12:47 Dose: 166.667 mls/hr Insulin Human Regular (Humulin R) 0 units SC ACHS [facility] ANN PRN Reason: Protocol Last Admin: 12/04/17 16:09 Dose: 2 units Levothyroxine Sodium (Levothyroxine) 60 mcg IVP DAILY [facility] Last Admin: 12/04/17 09:07 Dose: 60 mcg Magnesium Hydroxide (Milk Of Magnesia) 15 ml PO QID PRN PRN Reason: Constipation Last Admin: 12/02/17 21:31 Dose: 15 ml Methylprednisolone (Solu-Medrol) 40 mg IV Q12H [facility] Last Admin: 12/04/17 06:28 Dose: 40 mg Pantoprazole Sodium (Protonix Inj) 40 mg IVP DAILY [facility] Last Admin: 12/04/17 09:07 Dose: 40 mg - Labs Labs: 12/04/17 08:24 12/04/17 08:24 PT 11.4 Seconds (9.8-13.1) 11/28/17 05:15 INR 1.0 (0.9-1.2) 11/28/17 05:15 APTT 20.7 Seconds (25.6-37.1) L 11/28/17 05:15 - Constitutional Appears: Non-toxic, Chronically Ill - Head Exam Head Exam: ATRAUMATIC Additional comments: s/p craniotomy scalp - Eye Exam Eye Exam: EOMI, PERRL - Respiratory Exam Respiratory Exam: Clear to Ausculation Bilateral - Cardiovascular Exam Cardiovascular Exam: REGULAR RHYTHM - GI/Abdominal Exam GI & Abdominal Exam: Soft, Normal Bowel Sounds - Neurological Exam Neurological Exam: Alert, Awake, Oriented x3 - Psychiatric Exam Psychiatric exam: Normal Affect, Normal Mood - Skin Skin Exam: Normal Color Assessment and Plan - Assessment and Plan (Free Text) Assessment: (1) 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 s/p partial craniotomy with excision of tumor Keppra for seizure prophylaxis Doesn't want any conventional treatment, pt is to go home today (2) Lung cancer stage IV with metastasis to brain Heme/onc consult note in chart and appreciated (3) Atypical Chest pressure Echo showed EF of 45-50% and was normal, cardiology consult appreciated (4) DM HgbA1c is 7.4, continue current treatment pt is to d/c home, follow up out pt with oncology, pt refused treatment above d/w dr Snyder <Pedro Snyder - Last Filed: 12/05/17 13:03> Objective - Vital Signs/Intake and Output Vital Signs (last 24 hours): Temp Pulse Resp BP Pulse Ox 97.3 F L 91 H 20 127/76 93 L 12/05/17 12:22 12/05/17 12:22 12/05/17 12:22 12/05/17 12:22 12/05/17 12:22 - Medications Medications: Current Medications Acetaminophen (Tylenol 325mg Tab) 650 mg PO Q4 PRN PRN Reason: Headache Last Admin: 12/03/17 15:03 Dose: 650 mg Albuterol Sulfate (Albuterol 0.083% Inhal Deedee (2.5 Mg/3 Ml) Ud) 2.5 mg INH RQID [facility] Last Admin: 12/05/17 11:06 Dose: 2.5 mg Atorvastatin Calcium (Lipitor) 10 mg PO HS [facility] Last Admin: 12/04/17 23:23 Dose: Not Given Bacitracin (Bacitracin Oint) 1 applic TOP BID [facility] Last Admin: 12/05/17 09:11 Dose: 1 applic Levetiracetam 500 mg/ Sodium (Chloride) 105 mls @ 210 mls/hr IVPB Q12 [facility] Last Admin: 12/05/17 09:09 Dose: 210 mls/hr Vancomycin HCl 750 mg/ Sodium (Chloride) 250 mls @ 166.667 mls/hr IVPB Q12H [facility] PRN Reason: Protocol Last Admin: 12/05/17 11:34 Dose: Not Given Insulin Human Regular (Humulin R) 0 units SC ACHS [facility] PRN Reason: Protocol Last Admin: 12/05/17 10:58 Dose: Not Given Levothyroxine Sodium (Levothyroxine) 60 mcg IVP DAILY [facility] Last Admin: 12/05/17 09:09 Dose: 60 mcg Magnesium Hydroxide (Milk Of Magnesia) 15 ml PO QID PRN PRN Reason: Constipation Last Admin: 12/02/17 21:31 Dose: 15 ml Methylprednisolone (Solu-Medrol) 40 mg IV Q12H [facility] Last Admin: 12/05/17 06:50 Dose: Not Given Pantoprazole Sodium (Protonix Inj) 40 mg IVP DAILY [facility] Last Admin: 12/05/17 09:10 Dose: 40 mg - Labs Labs: 12/04/17 08:24 12/04/17 08:24 PT 11.4 Seconds (9.8-13.1) 11/28/17 05:15 INR 1.0 (0.9-1.2) 11/28/17 05:15 APTT 20.7 Seconds (25.6-37.1) L 11/28/17 05:15 Assessment and Plan - Assessment and Plan (Free Text) Assessment: Patient was personally seen and examined by me in rounds with residents. Available labs and diagnostic data reviewed. Case, Patient's condition and management plan discussed with residents in rounds. Agree with resident's progress note. Plan: As ordered.
[2017-12-05] MEDS: Insulin Regular 100 units/ml SC SCH ×3 (06:50→16:09)
[2017-12-05] MEDS: MethylPREDNISolone 40 mg Vial IV SCH (06:50)
[2017-12-05] MEDS: Albuterol 0.083% Inhal Sol (2.5 mg/3 mL) UD INH SCH ×3 (07:48→15:25)
[2017-12-05 08:18] VITALS: PULSE 91; RESP 20
[2017-12-05] MEDS: levETIRAcetam 500 MG in Sodium Chloride 0.9% 100 ML IVPB SCH (09:09)
[2017-12-05] MEDS: Levothyroxine 200 mcg (0.2 mg) Inj IVP SCH (09:09)
[2017-12-05] MEDS: Bacitracin OINT 15GM TOP SCH (09:11)
[2017-12-05 12:24] VITALS: BP 127/76; TEMP 97.3; O2SAT 93
--- NOTE | 2017-12-05 13:11 | CP.PCM.PN ---
<Isabela Flynn V - Last Filed: 12/05/17 17:12> Subjective - Subjective Subjective: Pt reevaluated prior to discharge Received 125mg of solumedrol, duoneb via INH, dyspnea has improved O2 level 92% on 4L NC, ambulance to transport patient with Oxygen via NC, PICC line removed. Ambulance picked up patient, uneventful. Rx given for commode, glucometer, bp machine, medications. All reviewed with patient and daughters at bedside in a detailed manner. All of the above discussed with Dr Snyder and patient has been cleared by consultants. Objective - Vital Signs/Intake and Output Vital Signs (last 24 hours): Temp Pulse Resp BP Pulse Ox 97.3 F L 91 H 20 127/76 93 L 12/05/17 12:22 12/05/17 12:22 12/05/17 12:22 12/05/17 12:22 12/05/17 12:22 - Medications Medications: Current Medications Acetaminophen (Tylenol 325mg Tab) 650 mg PO Q4 PRN PRN Reason: Headache Last Admin: 12/03/17 15:03 Dose: 650 mg Albuterol Sulfate (Albuterol 0.083% Inhal Deedee (2.5 Mg/3 Ml) Ud) 2.5 mg INH RQID [facility] Last Admin: 12/05/17 15:25 Dose: 2.5 mg Atorvastatin Calcium (Lipitor) 10 mg PO HS [facility] Last Admin: 12/04/17 23:23 Dose: Not Given Bacitracin (Bacitracin Oint) 1 applic TOP BID [facility] Last Admin: 12/05/17 09:11 Dose: 1 applic Levetiracetam 500 mg/ Sodium (Chloride) 105 mls @ 210 mls/hr IVPB Q12 [facility] Last Admin: 12/05/17 09:09 Dose: 210 mls/hr Vancomycin HCl 750 mg/ Sodium (Chloride) 250 mls @ 166.667 mls/hr IVPB Q12H [facility]ARY ANN PRN Reason: Protocol Last Admin: 12/05/17 11:34 Dose: Not Given Insulin Human Regular (Humulin R) 0 units SC ACHS [facility] PRN Reason: Protocol Last Admin: 12/05/17 16:09 Dose: 3 units Levothyroxine Sodium (Levothyroxine) 60 mcg IVP DAILY [facility] Last Admin: 12/05/17 09:09 Dose: 60 mcg Magnesium Hydroxide (Milk Of Magnesia) 15 ml PO QID PRN PRN Reason: Constipation Last Admin: 12/02/17 21:31 Dose: 15 ml Methylprednisolone (Solu-Medrol) 40 mg IV Q12H [facility] Last Admin: 12/05/17 06:50 Dose: Not Given Pantoprazole Sodium (Protonix Inj) 40 mg IVP DAILY [facility] Last Admin: 12/05/17 09:10 Dose: 40 mg - Labs Labs: 12/04/17 08:24 12/04/17 08:24 PT 11.4 Seconds (9.8-13.1) 11/28/17 05:15 INR 1.0 (0.9-1.2) 11/28/17 05:15 APTT 20.7 Seconds (25.6-37.1) L 11/28/17 05:15 <Lonny Leon - Last Filed: 12/05/17 22:41> Subjective - Date & Time of Evaluation Date of Evaluation: 12/05/17 Time of Evaluation: 11:30 - Subjective Subjective: Appears fatigued Objective - Vital Signs/Intake and Output Vital Signs (last 24 hours): Temp Pulse Resp BP Pulse Ox 97.3 F L 91 H 20 127/76 93 L 12/05/17 12:22 12/05/17 12:22 12/05/17 12:22 12/05/17 12:22 12/05/17 12:22 - Medications Medications: Current Medications Acetaminophen (Tylenol 325mg Tab) 650 mg PO Q4 PRN PRN Reason: Headache Last Admin: 12/03/17 15:03 Dose: 650 mg Albuterol Sulfate (Albuterol 0.083% Inhal Deedee (2.5 Mg/3 Ml) Ud) 2.5 mg INH RQID [facility] Last Admin: 12/05/17 11:06 Dose: 2.5 mg Atorvastatin Calcium (Lipitor) 10 mg PO HS [facility] Last Admin: 12/04/17 23:23 Dose: Not Given Bacitracin (Bacitracin Oint) 1 applic TOP BID [facility] Last Admin: 12/05/17 09:11 Dose: 1 applic Levetiracetam 500 mg/ Sodium (Chloride) 105 mls @ 210 mls/hr IVPB Q12 [facility] Last Admin: 12/05/17 09:09 Dose: 210 mls/hr Vancomycin HCl 750 mg/ Sodium (Chloride) 250 mls @ 166.667 mls/hr IVPB Q12H [facility]ARY ANN PRN Reason: Protocol Last Admin: 12/05/17 11:34 Dose: Not Given Insulin Human Regular (Humulin R) 0 units SC ACHS MARY ANN PRN Reason: Protocol Last Admin: 12/05/17 10:58 Dose: Not Given Levothyroxine Sodium (Levothyroxine) 60 mcg IVP DAILY [facility] Last Admin: 12/05/17 09:09 Dose: 60 mcg Magnesium Hydroxide (Milk Of Magnesia) 15 ml PO QID PRN PRN Reason: Constipation Last Admin: 12/02/17 21:31 Dose: 15 ml Methylprednisolone (Solu-Medrol) 40 mg IV Q12H [facility] Last Admin: 12/05/17 06:50 Dose: Not Given Pantoprazole Sodium (Protonix Inj) 40 mg IVP DAILY [facility] Last Admin: 12/05/17 09:10 Dose: 40 mg - Labs Labs: 12/04/17 08:24 12/04/17 08:24 PT 11.4 Seconds (9.8-13.1) 11/28/17 05:15 INR 1.0 (0.9-1.2) 11/28/17 05:15 APTT 20.7 Seconds (25.6-37.1) L 11/28/17 05:15 - Head Exam Head Exam: ATRAUMATIC - Eye Exam Eye Exam: Normal appearance - ENT Exam ENT Exam: Mucous Membranes Dry - Respiratory Exam Respiratory Exam: NORMAL BREATHING PATTERN - Cardiovascular Exam Cardiovascular Exam: +S1, +S2 - GI/Abdominal Exam GI & Abdominal Exam: Normal Bowel Sounds Assessment and Plan (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
--- NOTE | 2017-12-05 15:45 | CP.PCM.PCO ---
Assessment and Plan - Assessment and Plan (Free Text) Assessment: Called by RN to evaluate patient prior to discharge Pt seen in bed, on 4L NC, saturation 85% with some respiratory distress. Asked by Daughter Gloria to call Dr oJhnson for pulmonary recommendations. Spoke with , recommended oxygen therapy, duonebs and solumedrol for this patient with Stage 4 Lung Ca . Will order and continue to monitor patient. Patient and family still wish to pursue discharge this evening.
--- NOTE | 2017-12-05 19:14 | CP.PCM.DIS ---
Provider - Provider Date of Admission: 11/23/17 22:09 Attending physician: Pedro Snyder MD Primary care physician: Elis Rincon Consults: Dr. Leon-heme/onc; Dr. Johnson-pulmonology; Dr. Wills-neurosurgery; Dr. Htahaway- cardiology; Dr. Bellamy-neurology Time Spent in preparation of Discharge (in minutes): 30 Diagnosis - Discharge Diagnosis (1) Bleeding in brain Status: Resolved Priority: Low (2) Diabetes mellitus Status: Acute Priority: Medium (3) Lung cancer Status: Chronic Priority: Medium (4) Metastasis to brain Status: Acute Priority: Medium Hospital Course - Lab Results Lab Results: Micro Results 11/29/17 00:00 Naris MRSA Culture (Admit) - Final MRSA NOT DETECTED 11/24/17 10:00 Naris MRSA Culture (Admit) - Final MRSA NOT DETECTED Most Recent Lab Values WBC 13.0 K/uL (4.8-10.8) H 12/04/17 08:24 RBC 3.79 Mil/uL (3.80-5.20) L 12/04/17 08:24 Hgb 11.6 g/dL (12.0-16.0) L 12/04/17 08:24 Hct 36.1 % (34.0-47.0) 12/04/17 08:24 MCV 95.3 fl (81.0-99.0) 12/04/17 08:24 MCH 30.7 pg (27.0-31.0) 12/04/17 08:24 MCHC 32.2 g/dL (33.0-37.0) L 12/04/17 08:24 RDW 15.3 % (11.5-14.5) H 12/04/17 08:24 Plt Count 229 K/uL (130-400) 12/04/17 08:24 MPV 8.9 fl (7.2-11.7) 11/30/17 05:20 Neut % (Auto) 88.5 % (50.0-75.0) H 11/30/17 05:20 Lymph % (Auto) 5.4 % (20.0-40.0) L 11/30/17 05:20 [place] % (Auto) 5.7 % (0.0-10.0) 11/30/17 05:20 Eos % (Auto) 0.1 % (0.0-4.0) 11/30/17 05:20 Baso % (Auto) 0.3 % (0.0-2.0) 11/30/17 05:20 Neut # 9.6 K/uL (1.8-7.0) H 11/30/17 05:20 Lymph # 0.6 K/uL (1.0-4.3) L 11/30/17 05:20 [place] # 0.6 K/uL (0.0-0.8) 11/30/17 05:20 Eos # 0.0 K/uL (0.0-0.7) 11/30/17 05:20 Baso # 0.0 K/uL (0.0-0.2) 11/30/17 05:20 Neutrophils % (Manual) 87 % (42-75) H 11/30/17 05:20 Band Neutrophils % 1 % (0-2) 11/30/17 05:20 Lymphocytes % (Manual) 6 % (20-50) L 11/30/17 05:20 Monocytes % (Manual) 6 % (0-10) 11/30/17 05:20 Eosinophils % (Manual) 1 % (0-7) 11/24/17 04:50 Basophils % (Manual) 1 % (0-2) 11/24/17 04:50 Platelet Estimate Normal (NORMAL) 11/30/17 05:20 Hypochromasia (manual) Slight 11/30/17 05:20 Anisocytosis (manual) Slight 11/30/17 05:20 PT 11.4 Seconds (9.8-13.1) 11/28/17 05:15 INR 1.0 (0.9-1.2) 11/28/17 05:15 APTT 20.7 Seconds (25.6-37.1) L 11/28/17 05:15 pCO2 35 mm/Hg (35-45) 11/29/17 04:53 pO2 83 mm/Hg (80-100) 11/29/17 04:53 HCO3 28.1 mmol/L (21-28) H 11/29/17 04:53 ABG pH 7.50 (7.35-7.45) H 11/29/17 04:53 ABG Total CO2 28.4 mmol/L (22-28) H 11/29/17 04:53 ABG O2 Saturation 98.1 % (95-98) H 11/29/17 04:53 ABG O2 Content 14.8 ML/dL (15-23) L 11/29/17 04:53 ABG Base Excess 4.1 mmol/L (-2.0-3.0) H 11/29/17 04:53 ABG Hemoglobin 10.9 g/dL (11.7-17.4) L 11/29/17 04:53 ABG Carboxyhemoglobin 1.1 % (0.5-1.5) 11/29/17 04:53 POC ABG HHb (Measured) 1.9 % (0.0-5.0) 11/29/17 04:53 ABG Methemoglobin 1.0 % (0.0-3.0) 11/29/17 04:53 ABG O2 Capacity 15.1 mL/dL (16-24) L 11/29/17 04:53 [place] Test Yes 11/29/17 04:53 A-a O2 Difference 301.0 mm/Hg 11/29/17 04:53 Hgb O2 Saturation 96.0 % (95.0-98.0) 11/29/17 04:53 Vent Mode Prvc ac 11/29/17 04:53 Mechanical Rate 14 11/29/17 04:53 FiO2 60.0 % 11/29/17 04:53 Tidal Volume 450 11/29/17 04:53 PEEP 5 11/29/17 04:53 Sodium 136 mmol/l (132-148) 12/04/17 08:24 Potassium 3.9 MMOL/L (3.6-5.0) 12/04/17 08:24 Chloride 102 mmol/L (98-107) 12/04/17 08:24 Carbon Dioxide 26 mmol/L (22-30) 12/04/17 08:24 Anion Gap 12 (10-20) 12/04/17 08:24 BUN 31 mg/dl (7-17) H 12/04/17 08:24 Creatinine 1.0 mg/dl (0.7-1.2) 12/04/17 08:24 Est GFR ( Amer) > 60 12/04/17 08:24 Est GFR (Non-Af Amer) 53 12/04/17 08:24 POC Glucose (mg/dL) 226 mg/dL (65-110) H 12/05/17 10:56 Random Glucose 288 mg/dL (65-105) H 12/04/17 08:24 Hemoglobin A1c 7.1 % (4.2-6.5) H 11/27/17 04:30 Serum Osmolality 297 mosm/kg (272-300) 11/30/17 05:20 Calcium 11.3 mg/dL (8.4-10.2) H 12/04/17 08:24 Total Bilirubin 0.7 mg/dl (0.2-1.3) 12/04/17 08:24 AST 20 U/L (14-36) 12/04/17 08:24 ALT 42 U/L (9-52) 12/04/17 08:24 Alkaline Phosphatase 77 U/L (38-126) 12/04/17 08:24 Total Creatine Kinase 76 U/L (30-135) 11/23/17 22:10 Troponin I < 0.0120 ng/mL (0.00-0.120) 11/30/17 13:25 NT-Pro-B Natriuret Pep 281 pg/ml (0-900) 11/23/17 22:10 Total Protein 6.5 G/DL (6.3-8.2) 12/04/17 08:24 Albumin 3.3 g/dL (3.5-5.0) L 12/04/17 08:24 Globulin 3.1 gm/dL (2.2-3.9) 12/04/17 08:24 Albumin/Globulin Ratio 1.1 (1.0-2.1) 12/04/17 08:24 Triglycerides 78 mg/DL (0-149) 11/29/17 14:47 Cholesterol 198 mg/dL (0-199) 11/29/17 14:47 LDL Cholesterol Direct 121 mg/dL (0-129) 11/29/17 14:47 HDL Cholesterol 53 MG/DL (30-70) 11/29/17 14:47 Free T4 0.60 ng/dL (0.78-2.19) L 11/24/17 12:59 Total T3 0.475 nmol/L (1.49-2.60) L 11/24/17 12:59 TSH 3rd Generation 17.30 mIU/ML (0.46-4.68) H 11/24/17 10:04 Urine Color Yellow (YELLOW) 11/23/17 22:00 Urine Clarity Slighty-cloudy (Clear) 11/23/17 22:00 Urine pH 7.0 (5.0-8.0) 11/23/17 22:00 Ur Specific [place] 1.008 (1.003-1.030) 11/23/17 22:00 Urine Protein Negative mg/dL (NEGATIVE) 11/23/17 22:00 Urine Glucose (UA) Neg mg/dL (Normal) 11/23/17 22:00 Urine Ketones Negative mg/dL (NEGATIVE) 11/23/17 22:00 Urine Blood Negative (NEGATIVE) 11/23/17 22:00 Urine Nitrate Negative (NEGATIVE) 11/23/17 22:00 Urine Bilirubin Negative (NEGATIVE) 11/23/17 22:00 Urine Urobilinogen 0.2-1.0 mg/dL (0.2-1.0) 11/23/17 22:00 Ur Leukocyte Esterase Small [place]/uL (Negative) 11/23/17 22:00 Urine RBC (Auto) 1 /hpf (0-3) 11/23/17 22:00 Urine Microscopic WBC 8 /hpf (0-5) H 11/23/17 22:00 Ur Squamous Epith Cells 2 /hpf (0-5) 11/23/17 22:00 Hyaline Casts 3-5 /hpf (0-2) H 11/23/17 22:00 Blood Type O POSITIVE 11/28/17 12:45 Blood Type Confirm O POSITIVE 11/28/17 01:12 Antibody Screen Negative 11/28/17 12:45 Crossmatch See Detail 11/28/17 12:45 BBK History Checked No verified bt 11/28/17 12:45 - Hospital Course Hospital Course: 82 yr old F with Stage IV Lung cancer s/p radiation treatment admitted for worsening gait instability and 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 Patient was cleared for transfer to rehabilitation but family and patient refused and requested to be discharged to home. Patient was discharged to home via ambulance with O2 via nasal cannula, duonebs, solumedrol, BP meds, rx for commode/glucometer, and instructions to follow up with PMD, pulmonology, neurology, neurosurgery, and hematology/oncology within 1 week. - Date & Time of H&P Date of H&P: 11/24/17 Time of H&P: 08:23 Discharge Exam - Head Exam Additional comments: right parietal wound clean and dry - Eye Exam Eye Exam: EOMI - ENT Exam ENT Exam: Mucous Membranes Moist - Neck Exam Neck exam: Full Rom - Respiratory Exam Additional comments: mild dyspnea at baseline - Cardiovascular Exam Cardiovascular Exam: REGULAR RHYTHM, +S1, +S2 - GI/Abdominal Exam GI & Abdominal Exam: Normal Bowel Sounds, Soft (obese) - Extremities Exam Extremities exam: full ROM - Neurological Exam Neurological exam: Alert, CN II-XII Intact, Oriented x3 - Psychiatric Exam Psychiatric exam: Normal Affect, Normal Mood - Skin Skin Exam: Dry, Warm Discharge Plan - Discharge Medications Prescriptions: Albuterol 0.083% [Albuterol 0.083% Inhal Deedee (2.5 mg/3 ml) UD] 2.5 mg INH RQID # 90 neb Atorvastatin [Lipitor] 10 mg PO HS #30 tab Levetiracetam [Keppra] 500 mg PO Q12 #60 tablet Methylprednisolone [Medrol Dose Pack (21 tabs)] 4 mg PO DAILY #21 mg - Follow Up Plan Condition: STABLE Disposition: HOME/ ROUTINE Instructions: Levetiracetam (By mouth), Craniotomy for Tumor Resection (DC) Referrals: Lonny Leon MD [Staff Provider] - Mateusz Hathaway MD [Staff Provider] - Nasir Bellamy MD [Medical Doctor] - Brad Parekh MD [Staff Provider] - Clinical Quality Measures - Date & Time of Discharge Summary Date of Discharge Summary: 12/05/17 Time of Discharge Summary: 19:30
== END 2017-12-05 17:12 | disposition home or self-care (01) | DRG 25 ==
LOC: H.ER 19:08 → H.ERHOLD 22:09 → H.ICU/CCU 11-24 00:45 → H.TEL 11-29 18:59
PROVIDERS: ADMIT Internal Medicine; ATTEND Internal Medicine
PROC: 02HV33Z Insertion of Infusion Device into Superior Vena Cava, Percutaneous Approach (ICD-10-PCS; 2017-11-24)
PROC: B518ZZA Fluoroscopy of Superior Vena Cava, Guidance (ICD-10-PCS; 2017-11-24)
PROC: B548ZZA Ultrasonography of Superior Vena Cava, Guidance (ICD-10-PCS; 2017-11-24)
PROC: 00N00ZZ Release Brain, Open Approach (ICD-10-PCS; 2017-11-28)
PROC: 0BH17EZ Insertion of Endotracheal Airway into Trachea, Via Natural or Artificial Opening (ICD-10-PCS; 2017-11-28)
PROC: 5A1935Z Respiratory Ventilation, Less than 24 Consecutive Hours (ICD-10-PCS; 2017-11-28)
PROC: 00B70ZX Excision of Cerebral Hemisphere, Open Approach, Diagnostic (ICD-10-PCS; principal; 2017-11-28 12:00)
DX: C79.31 Secondary malignant neoplasm of brain (principal); G93.6 Cerebral edema; I61.8 Other nontraumatic intracerebral hemorrhage; J18.9 Pneumonia, unspecified organism; J90 Pleural effusion, not elsewhere classified; E11.42 Type 2 diabetes mellitus with diabetic polyneuropathy; E11.65 Type 2 diabetes mellitus with hyperglycemia; G81.94 Hemiplegia, unspecified affecting left nondominant side; G93.89 Other specified disorders of brain; S22.31XA Fracture of one rib, right side, initial encounter for closed fracture; C34.90 Malignant neoplasm of unspecified part of unspecified bronchus or lung; D64.9 Anemia, unspecified; D32.9 Benign neoplasm of meninges, unspecified; D72.819 Decreased white blood cell count, unspecified; E03.9 Hypothyroidism, unspecified; F41.9 Anxiety disorder, unspecified; M53.3 Sacrococcygeal disorders, not elsewhere classified; M85.80 Other specified disorders of bone density and structure, unspecified site; R29.707 NIHSS score 7; S09.90XA Unspecified injury of head, initial encounter; T38.0X5A Adverse effect of glucocorticoids and synthetic analogues, initial encounter; Y92.002 Bathroom of unspecified non-institutional (private) residence as the place of occurrence of the external cause; Z51.5 Encounter for palliative care; Z80.3 Family history of malignant neoplasm of breast; Z87.891 Personal history of nicotine dependence; Z90.49 Acquired absence of other specified parts of digestive tract; Z91.81 History of falling; Z92.3 Personal history of irradiation; M54.5 Low back pain; R10.11 Right upper quadrant pain; R29.6 Repeated falls; W01.0XXA Fall on same level from slipping, tripping and stumbling without subsequent striking against object, initial encounter; R06.03 Acute respiratory distress; R06.09 Other forms of dyspnea; R07.89 Other chest pain